=== PATIENT | male | born 1935 | race Caucasian/White ===

== ENCOUNTER 2018-08-25 07:30 | Inpatient (IN) | payer MEDICARE, OTHER ==
[2018-08-29] MEDS ORDERED: Sodium Chloride 0.9% 10 ML Syringe FLUSH PRN (00:01)
[2018-08-29] MEDS ORDERED: Lactated Ringers 1,000 ML IV SCH (00:01)
[2018-08-29] MEDS ORDERED: Lidocaine 1%/Sod Bicarbonate in NS 8.4% 1 ML Syringe IDERM PRN (00:01)
[2018-08-29] MEDS ORDERED: Ondansetron 4 MG/2 ML SDV IVPUSH PRN (06:27)
[2018-08-29] MEDS ORDERED: Bisacodyl 5 MG Tab PO PRN (06:27)
[2018-08-29] MEDS ORDERED: Sennosides 8.6 MG Tab PO PRN (06:27)
[2018-08-29] MEDS ORDERED: Naloxone 0.4 MG/ML SDV IVPUSH PRN (06:27)
[2018-08-29] MEDS ORDERED: Morphine 2 MG/ML Syringe IVPUSH PRN (06:27)
--- NOTE | 2018-08-29 06:35 | PCM.PREANE ---
Preanesthetic Assessment - Anesthesia/Transfusion/Family Hx Anesthesia History: Prior Anesthesia Without Reaction Family History of Anesthesia Reaction: No Transfusion History: Prior Transfusion Without Reaction - Review of Systems General: No Symptoms Pulmonary: No Symptoms Cardiovascular: Dyspnea on Exertion Gastrointestinal: No Symptoms Neurological: No Symptoms, Numbness (hands at times), Tingling (hands at times) Other: Reports: Diabetes (am blood suger 100), Thyroid Problems (hypothyroid), Sinus Problem (congestion) - Physical Assessment NPO Status Date: 08/28/18 NPO Status Time: 00:00 Pulse: 79 O2 Sat by Pulse Oximetry: 90 Respiratory Rate: 16 Blood Pressure: 112/68 Temperature: 36.1 C Height: 1.78 m Weight: 106 kg ASA Class: 3 Mental Status: Alert & Oriented x3 Airway Class: Mallampati = 2 Dentition: Reports: Dentures Thyro-Mental Finger Breadths: 3 Mouth Opening Finger Breadths: 2 ROM/Head Extension: Limited/Partial Lungs: Clear to Auscultation, Normal Respiratory Effort Cardiovascular: Regular Rate, Regular Rhythm - Imaging/EKG Impressions: ON chart - Allergies Allergies/Adverse Reactions: Allergies Allergy/AdvReac Type Severity Reaction Status Date / Time TREY Inhibitors Allergy Cough Verified 08/26/18 14:25 - Anesthesia Plan Pre-Op Medication Ordered: Beta [place] Beta [place]: Metoprolol Med Last Dose Date: 08/29/18 Med Last Dose Time: 04:30 - Acknowledgements Anesthesia Type Planned: Spinal, Regional Block (femoral block at adductor canal for post-op pain control) Pt an Appropriate Candidate for the Planned Anesthesia: Yes Alternatives and Risks of Anesthesia Discussed w Pt/Guardian: Yes Pt/Guardian Understands and Agrees with Anesthesia Plan: Yes PreAnesthesia Questionnaire HEENT History: Reports: Impaired Vision, Other (See Below) Other HEENT History: wears glasses, has hearing aids, has dentures Cardiovascular History: Reports: Afib, CAD, Heart Failure, High Cholesterol, Stents Respiratory History: Reports: COPD Gastrointestinal History: Reports: Cholelithiasis, Chronic Constipation Genitourinary History: Reports: Other (See Below) Other Genitourinary History: hematuria, left hydronephrosis, CKDIII WEB FEEDER History: Reports: None Musculoskeletal History: Reports: Other (See Below) Other Musculoskeletal History: right hip bursitis, mallet finger, low back pain , degenerative arthritis Neurological History: Reports: Other (See Below) Other Neuro History: spinal claudication Psychiatric History: Reports: Other (See Below) Other Psychiatric History: insomnia Endocrine/Metabolic History: Reports: Diabetes, Type II, Hypoparathyroidism Hematologic History: Reports: None Immunologic History: Reports: None Oncologic (Cancer) History: Reports: None Dermatologic History: Reports: Other (See Below) Other Dermatologic History: external nasal lesion - Past Surgical History Head Surgeries/Procedures: Reports: None Cardiovascular Surgical History: Reports: AAA Repair, Coronary Artery Bypass Respiratory Surgical History: Reports: None GI Surgical History: Reports: None Female Surgical History: Reports: None Male Surgical History: Reports: None Endocrine Surgical History: Reports: None Neurological Surgical History: Reports: None Musculoskeletal Surgical History: Reports: None Oncologic Surgical History: Reports: None - SUBSTANCE USE Smoking Status *Q: Former Smoker Tobacco Use Within Last Twelve Months: No Second Hand Smoke Exposure: No Days Per Week of Alcohol Use: 0 Number of Drinks Per Day: 0 Total Drinks Per Week: 0 Recreational Drug Use History: No - HOME MEDS Home Medications: Home Meds Aspirin [Halfprin] 81 mg PO DAILY 08/26/18 [History] Diltiazem HCl [Cardizem Cd] 240 mg PO DAILY 08/26/18 [History] Doxazosin [Cardura] 4 mg PO BEDTIME 08/26/18 [History] Furosemide 20 mg PO DAILY 08/26/18 [History] Insulin Glarg,Human.Rec.Analog [Lantus] 50 units SQ DAILY 08/26/18 [History] Levothyroxine [Synthroid] 50 mcg PO DAILY 08/26/18 [History] Losartan/Hydrochlorothiazide [Losartan-HCTZ 50-12.5 MG] 1 tab PO DAILY 08/26/18 [History] Metoprolol Succinate [Toprol Xl] 100 mg PO DAILY 08/26/18 [History] Polyethylene Glycol 3350 [MiraLAX] 17 g PO DAILY 08/26/18 [History] Tiotropium Br/Olodaterol HCl [Stiolto Respimat Inhal [place]] 1 puff INH DAILY 02/06 [History] Tiotropium [Spiriva HandiHaler] 1 puff INH DAILY 08/26/18 [History] Triamcinolone Acetonide [Triamcinolone Acetonide 0.1% Crm] 1 dose TOP BID PRN [History] Warfarin Sodium 2.5 mg PO MOWEFR 08/26/18 [History] Warfarin Sodium 5 mg PO SUTUTHSA 08/26/18 [History] glipiZIDE [Glipizide ER] 10 mg PO BID 08/26/18 [History] - CURRENT (IN HOUSE) MEDS Current Meds: Current Medications Lactated Ringer's (Ringers, Lactated) 1,000 mls @ 125 mls/hr IV ASDIRECTED LUCILA Lidocaine/Sodium Bicarbonate (Buffered Lidocaine 1% In Ns 8.4%) 0.25 ml IDERM ONETIME PRN PRN Reason: Prior to IV Start Sodium Chloride (Saline Flush) 10 ml FLUSH ASDIRECTED PRN PRN Reason: Keep Vein Open
[2018-08-29] MEDS ORDERED: ceFAZolin 1 GM Vial ONE ×2 (06:42→06:49)
[2018-08-29] MEDS ORDERED: Famotidine 20 MG/2 ML SDV IVPUSH ONE (06:45)
[2018-08-29] MEDS ORDERED: Ondansetron 4 MG/2 ML SDV ONE (06:48)
[2018-08-29] MEDS ORDERED: Propofol 200 MG/20 ML SDV ONE (06:48)
[2018-08-29] MEDS ORDERED: fentaNYL 100 MCG/2 ML SDV ONE (06:49)
[2018-08-29] MEDS ORDERED: Bupivacaine 0.75% 30 ML SDV ONE (07:28)
--- NOTE | 2018-08-29 07:48 | PCM.CONS ---
H&P History of Present Illness - General Date of Service: 08/29/18 Admit Problem/Dx: Admission Diagnosis/Problem Admission Diagnosis/Problem Osteoarthritis of knee Source of Information: Patient, Old Records, Provider, RN, RN Notes Reviewed History Limitations: Reports: No Limitations - History of Present Illness Initial Comments - Free Text/Narative: Jon Roberson is a 83 yo male patient of Dr. Eldridge who is post-operative day 0 of right TKA and left knee steroid injection. Hospital medicine was consulted for post-operative medical care. At this time he is resting comfortably in bed. Pain is controlled. He denies any chest pain, shortness of breath, palpitations , nausea, or vomiting. He carries a history of: Hard of hearing, hematuria, CHF , hydronephrosis, HLD, claudication, lower back pain, COPD, OA, AAA with repair in 2005, hypothyroidism, type II DM, A. fib, atrial flutter, CAD stage III, CAD , CABG 4 in 2005, stent placement in 2014. He is a former smoker. He is a full code. His primary care provider is Dr. Gallagher. - Related Data Allergies/Adverse Reactions: Allergies Allergy/AdvReac Type Severity Reaction Status Date / Time TREY Inhibitors Allergy Cough Verified 08/29/18 10:07 Home Medications: Home Meds Aspirin [Halfprin] 81 mg PO DAILY 08/26/18 [History] Diltiazem HCl [Cardizem Cd] 240 mg PO DAILY 08/26/18 [History] Doxazosin [Cardura] 4 mg PO BEDTIME 08/26/18 [History] Furosemide 20 mg PO DAILY 08/26/18 [History] Insulin Glarg,Human.Rec.Analog [Lantus] 50 units SQ DAILY 08/26/18 [History] Levothyroxine [Synthroid] 50 mcg PO DAILY 08/26/18 [History] Losartan/Hydrochlorothiazide [Losartan-HCTZ 50-12.5 MG] 1 tab PO DAILY 08/26/18 [History] Metoprolol Succinate [Toprol Xl] 100 mg PO DAILY 08/26/18 [History] Polyethylene Glycol 3350 [MiraLAX] 17 g PO DAILY PRN 08/26/18 [History] Tiotropium [Spiriva HandiHaler] 1 puff INH DAILY 08/26/18 [History] Triamcinolone Acetonide [Triamcinolone Acetonide 0.1% Crm] 1 dose TOP BID PRN [History] Warfarin Sodium 2.5 mg PO MOWEFR 08/26/18 [History] Warfarin Sodium 5 mg PO SUTUTHSA 08/26/18 [History] glipiZIDE [Glipizide ER] 10 mg PO BID 08/26/18 [History] Acetaminophen/HYDROcodone [[place] 325-5 MG] 1 - 2 tab PO Q6H PRN #60 tablet 08/29 [Rx] Bisacodyl [Dulcolax] 5 mg PO DAILY PRN tablet 08/29/18 [Rx] Cholecalciferol (Vitamin D3) [Vitamin D3] 1 tab PO DAILY 08/29/18 [History] Docusate Sodium [Colace] 100 mg PO BID cap 08/29/18 [Rx] Famotidine [Pepcid] 20 mg PO Q12H tablet 08/29/18 [Rx] Pharmacy to Dose - Warfarin 1 dose .XX ASDIRECTED each 08/29/18 [Rx] Sennosides [Senna] 8.6 mg PO BID PRN tablet 08/29/18 [Rx] Past Medical History HEENT History: Reports: Impaired Vision, Other (See Below) Other HEENT History: wears glasses, has hearing aids, has dentures Cardiovascular History: Reports: Afib, CAD, Heart Failure, High Cholesterol, Stents Respiratory History: Reports: COPD Gastrointestinal History: Reports: Cholelithiasis, Chronic Constipation Genitourinary History: Reports: Other (See Below) Other Genitourinary History: hematuria, left hydronephrosis, CKDIII MANAGER TALENT History: Reports: None Musculoskeletal History: Reports: Other (See Below) Other Musculoskeletal History: right hip bursitis, mallet finger, low back pain , degenerative arthritis Neurological History: Reports: Other (See Below) Other Neuro History: spinal claudication Psychiatric History: Reports: Other (See Below) Other Psychiatric History: insomnia Endocrine/Metabolic History: Reports: Diabetes, Type II, Hypoparathyroidism Hematologic History: Reports: None Immunologic History: Reports: None Oncologic (Cancer) History: Reports: None Dermatologic History: Reports: Other (See Below) Other Dermatologic History: external nasal lesion - Past Surgical History Head Surgeries/Procedures: Reports: None Cardiovascular Surgical History: Reports: AAA Repair, Coronary Artery Bypass Respiratory Surgical History: Reports: None GI Surgical History: Reports: None Female Surgical History: Reports: None Male Surgical History: Reports: None Endocrine Surgical History: Reports: None Neurological Surgical History: Reports: None Musculoskeletal Surgical History: Reports: None Oncologic Surgical History: Reports: None Social & Family History - Tobacco Use Smoking Status *Q: Former Smoker Second Hand Smoke Exposure: No - Caffeine Use Caffeine Use: Reports: Coffee - Alcohol Use Days Per Week of Alcohol Use: 0 Number of Drinks Per Day: 0 Total Drinks Per Week: 0 - Recreational Drug Use Recreational Drug Use: No Drug Use in Last 12 Months: No H&P Review of Systems - Review of Systems: Review Of Systems: See Below General: Reports: No Symptoms. Denies: Fever, Fatigue HEENT: Reports: No Symptoms. Denies: Headaches, Sore Throat Pulmonary: Reports: No Symptoms. Denies: Shortness of Breath, Wheezing, Pleuritic Chest Pain, Cough, Sputum, Hemoptysis Cardiovascular: Reports: No Symptoms. Denies: Chest Pain, Palpitations, Dyspnea on Exertion, Edema, Lightheadedness Gastrointestinal: Reports: No Symptoms. Denies: Abdominal Pain, Constipation, Diarrhea, Nausea, Vomiting Genitourinary: Reports: No Symptoms. Denies: Pain Musculoskeletal: Reports: Leg Pain Skin: Reports: No Symptoms. Denies: Cyanosis Psychiatric: Reports: No Symptoms. Denies: Confusion Neurological: Reports: No Symptoms Hematologic/Lymphatic: Reports: No Symptoms Immunologic: Reports: No Symptoms Exam - Exam Exam: See Below - Vital Signs Vital Signs: Last Vital Signs Temp 97.0 F 08/29/18 06:41 Pulse 79 08/29/18 06:41 Resp 16 08/29/18 06:41 BP 112/68 08/29/18 06:41 Pulse Ox 90 L 08/29/18 06:41 Weight: 233 lb 11.04 oz - Exam Quality Assessment: DVT Prophylaxis General: Alert, Oriented, Cooperative. No: Mild Distress HEENT: Conjunctiva Clear, EACs Clear, EOMI, Hearing Intact, Mucosa Moist & [place] , Nares Patent, Normal Nasal Septum, Posterior Pharynx Clear, PERRLA Neck: Supple, Trachea Midline Lungs: Clear to Auscultation, Normal Respiratory Effort Cardiovascular: Regular Rate, Regular Rhythm GI/Abdominal Exam: Normal Bowel Sounds, Soft, Non-Tender, No Distention, No Abnormal Bruit (Male) Exam: Deferred Rectal (Males) Exam: Deferred Back Exam: Normal Inspection, Full Range of Motion Extremities: No Pedal Edema, Normal Capillary Refill, Leg Pain, Limited Range of Motion, Other (Bandage in place on right leg. Cooling pack in place. ) Peripheral Pulses: 2+: Radial (L), Radial (R), Dorsalis Pedis (L), Dorsalis Pedis (R) Skin: Warm, Dry, Intact Neurological: Cranial Nerves Intact (grossly ) Neuro Extensive - Mental Status: Alert, Oriented x3, Normal Mood/Affect, Normal Cognition - Patient Data Lab Results Last 24 hrs: Laboratory Results - last 24 hr 08/29/18 08/29/18 Range/Units 06:33 06:34 PT 13.0 H (9.5-12.1) SECONDS INR 1.20 POC Glucose 100 (83-110) mg/dL Consult PN Assessment/Plan POD#: 0 (1) S/P total knee arthroplasty SNOMED Code(s): 7735948835399, 208930950, 2165718786115 Code(s): Z96.659 - PRESENCE OF UNSPECIFIED ARTIFICIAL KNEE JOINT Priority: High Current Visit: Yes Qualifiers: Laterality: right Qualified Code(s): Z96.651 - Presence of right artificial knee joint (2) Osteoarthritis SNOMED Code(s): 419342723 Code(s): M19.90 - UNSPECIFIED OSTEOARTHRITIS, UNSPECIFIED SITE Priority: High Current Visit: Yes Qualifiers: Osteoarthritis location: knee Osteoarthritis type: primary Laterality: bilateral Qualified Code(s): M17.0 - Bilateral primary osteoarthritis of knee (3) CHF (congestive heart failure) SNOMED Code(s): 86560986 Code(s): I50.9 - HEART FAILURE, UNSPECIFIED Priority: Medium Current Visit: No Qualifiers: Heart failure type: unspecified Heart failure chronicity: unspecified Qualified Code(s): I50.9 - Heart failure, unspecified (4) HLD (hyperlipidemia) SNOMED Code(s): 31784911 Code(s): E78.5 - HYPERLIPIDEMIA, UNSPECIFIED Priority: Low Current Visit : No Qualifiers: Hyperlipidemia type: unspecified Qualified Code(s): E78.5 - Hyperlipidemia , unspecified (5) Chronic lower back pain SNOMED Code(s): 971733253 Code(s): M54.5 - LOW BACK PAIN; G89.29 - OTHER CHRONIC PAIN Priority: Low Current Visit: No Qualifiers: Back pain laterality: unspecified Sciatica presence: unspecified whether sciatica present Qualified Code(s): M54.5 - Low back pain; G89.29 - Other chronic pain (6) COPD (chronic obstructive pulmonary disease) SNOMED Code(s): 65341659 Code(s): J44.9 - CHRONIC OBSTRUCTIVE PULMONARY DISEASE, UNSPECIFIED Priority: Medium Current Visit: No Qualifiers: COPD type: unspecified COPD Qualified Code(s): J44.9 - Chronic obstructive pulmonary disease, unspecified (7) History of AAA (abdominal aortic aneurysm) repair SNOMED Code(s): 991186710 Code(s): Z98.890 - OTHER SPECIFIED POSTPROCEDURAL STATES Priority: Medium Current Visit: No (8) Hypothyroidism SNOMED Code(s): 86651082 Code(s): E03.9 - HYPOTHYROIDISM, UNSPECIFIED Priority: Medium Current Visit: No Qualifiers: Hypothyroidism type: unspecified Qualified Code(s): E03.9 - Hypothyroidism , unspecified (9) Type II diabetes mellitus SNOMED Code(s): 80255243 Code(s): E11.9 - TYPE 2 DIABETES MELLITUS WITHOUT COMPLICATIONS Priority: Medium Current Visit: No Qualifiers: Diabetes mellitus assisted insulin use: unspecified assisted insulin use status Diabetes mellitus complication status: with unspecified complications Qualified Code(s): E11.8 - Type 2 diabetes mellitus with unspecified complications (10) A-fib SNOMED Code(s): 15108876 Code(s): I48.91 - UNSPECIFIED ATRIAL FIBRILLATION Priority: Medium Current Visit: No Qualifiers: Atrial fibrillation type: unspecified Qualified Code(s): I48.91 - Unspecified atrial fibrillation (11) CKD (chronic kidney disease) SNOMED Code(s): 945943274 Code(s): N18.9 - CHRONIC KIDNEY DISEASE, UNSPECIFIED Priority: Medium Current Visit: No Qualifiers: Chronic kidney disease stage: stage 3 (moderate) Qualified Code(s): N18.3 - Chronic kidney disease, stage 3 (moderate) (12) CAD (coronary artery disease) SNOMED Code(s): 70341722 Code(s): I25.10 - ATHSCL HEART DISEASE OF [place] CORONARY ARTERY W/O ANG PCTRS Priority: Medium Current Visit: No Qualifiers: Coronary Disease-Associated Artery/Lesion type: unspecified vessel or lesion type [place] vs. transplanted heart: [place] heart Associated angina: angina presence unspecified Qualified Code(s): I25.10 - Atherosclerotic heart disease of [place] coronary artery without angina pectoris (13) History of four vessel coronary artery bypass graft SNOMED Code(s): 824218395, 007360187 Code(s): Z95.1 - PRESENCE OF AORTOCORONARY BYPASS GRAFT Priority: Medium Current Visit: No Problem List Initiated/Reviewed/Updated: Yes Plan: I/P: Acute: S/P right total knee arthroplasty - post-operative day 0 -DVT prophylaxis and pain management per primary care team -PT/OT -IS/RT -Monitor oxygen saturation -Titrate oxygen as needed -Vital signs stable -Monitor labs -Pre-operative Hgb was 16.6 -Pre-operative GFR was 34 -Pre-operative creatinine was 1.9 -Pre-operative BUN was 42 -Preoperative A1C was 7.1% -Echo on 05/05/19 showed EF of 59%, A-flutter at 61 BPM Osteoarthritis of bilateral knee -Pain management per primary care team S/P left knee steroid injection -Management per primary team Chronic: Hard of hearing hematuria CHF hydronephrosis HLD claudication lower back pain COPD AAA with repair in 2005 hypothyroidism type II DM A. fib atrial flutter CAD stage III CAD CABG 4 in 2005 stent placement in 2014 Plan: CM for discharge planning - Plan to discharge to [facility] GI prophylaxis Home medications as indicated Other orders as listed above Routine AM labs He is a full code. His PCP is Dr. Gallagher Thank you for allowing us to participate in the care of this patient!! Requesting Provider: Dr. Eldridge Date Consult Requested: 08/29/18 Reason for Consult: Post-operative medical care Patient History Reviewed: Yes Admission H&P Reviewed: Yes Time Spent (in minutes): 30
[2018-08-29] MEDS ORDERED: Phenylephrine/Normal Saline 100 MCG/ML 10 ML Syringe ONE (07:52)
[2018-08-29] MEDS: Iodine/Sodium Iodide 2% Tincture 30 ML Bottle ONE ×2 (08:03→08:07)
[2018-08-29] MEDS: ceFAZolin 1 GM Vial ONE ×2 (08:03→08:10)
[2018-08-29] MEDS: Morphine 8 MG, EPINEPHrine 0.3 MG, Cefuroxime 750 MG, Sodium Chloride 0.9% 28.9 ML ONE ×8 (08:04→08:15)
[2018-08-29] MEDS: Vancomycin 1 GM SDV ONE ×2 (08:05→08:20)
[2018-08-29] MEDS: Bupivacaine 0.25% 30 ML SDV ONE ×4 (08:05→08:41)
[2018-08-29] MEDS: Triamcinolone Acetonide 40 MG/ML 1 ML MDV ONE ×2 (08:06→08:41)
--- NOTE | 2018-08-29 08:55 | PCM.POSTAN ---
POST ANESTHESIA ASSESSMENT - MENTAL STATUS Mental Status: Alert, Oriented - VITAL SIGNS Pulse Rate: 58 SaO2: 93 Resp Rate: 10 Blood Pressure: 85/54 Temperature: 36.6 C - RESPIRATORY Respiratory Status: Respiratory Rate WNL, Airway Patent, O2 Saturation Stable, Supplemental Oxygen - CARDIOVASCULAR CV Status: Pulse Rate WNL, Blood Pressure Stable - GASTROINTESTINAL GI Status: No Symptoms - PAIN Pain Score: 0 - POST OP HYDRATION Hydration Status: Adequate & Stable - OBSERVATIONS Free Text/Narrative:: no anesthesia complications noted
[2018-08-29] MEDS ORDERED: EPINEPHrine 1 MG/ML SDV ONE (09:06)
[2018-08-29] MEDS ORDERED: Ropivacaine 0.5% 5 MG/ML 30 ML SDV ONE (09:06)
--- NOTE | 2018-08-29 09:32 | PCM.SN ---
- Free Text/Narrative Note: Right selective femoral nerve block at the adductor canal for post-procedure pain control under US guidance requested by Dr. Eldridge. Time Out: 908 Start: 908 End: 921 Chart reviewed. Consent signed. Questions answered. Appropriate monitors applied. Time out performed. Right mid-shaft femur identified with ultrasound, scanning medially of femur, the femoral artery in the adductor canal visualized , and the femoral nerve located laterally to the artery. The skin was prepped lateral to the ultrasound probe with chlorahexadine times two. The 21ga 4 insulated block needle was inserted under direct ultrasound guidance into the adductor canal. 20 mL of 0.5% ropivacaine with 1:200,000 epinephrine was injected circumferentially around the nerve with intermittent negative aspiration noted. Patient tolerated the procedure well. Sterile technique noted along with sterile gloves, mask, and sterile probe cover. See picture on progress note and vital signs on nurses notes. Block completed in PACU. Lefty Dunn CRNA
--- NOTE | 2018-08-29 09:59 | CR ---
Right knee: Portable AP and lateral views of the right knee were obtained. Comparison: No previous exam. Knee prosthesis is seen. Components are aligned. Underlying bony structures are intact. Vascular calcification is seen. Soft tissue air is noted from the surgical procedure. Impression: 1. Satisfactory postoperative radiographic appearance of recently placed right knee prosthesis. Diagnostic code #2
[2018-08-29] MEDS: Insulin Lispro 100 Units/ML 3 ML Vial SUBCUT SCH ×3 (13:30→21:38)
[2018-08-29] MEDS ORDERED: Polyethylene Glycol 3350 Powder 17 GM Packet PO PRN (13:39)
[2018-08-29] MEDS ORDERED: Triamcinolone Acetonide 0.1% Crm 15 GM Tube TOP PRN (13:39)
[2018-08-29] MEDS: Acetaminophen/HYDROcodone 325-5 MG Tab PO PRN (15:25)
[2018-08-29] MEDS: ceFAZolin 2 GM in Premix Bag 1 BAG IV SCH ×2 (15:27→23:51)
[2018-08-29] MEDS ORDERED: Warfarin 2.5 MG Tab PO SCH (18:00)
[2018-08-29] MEDS ORDERED: Famotidine 20 MG Tab PO SCH (21:00)
[2018-08-29] MEDS: glipiZIDE 5 MG Tab.ER PO SCH (21:36)
[2018-08-29] MEDS: Docusate Sodium 100 MG Cap PO SCH (21:36)
[2018-08-29] MEDS: Doxazosin 4 MG Tab PO SCH (21:38)
[2018-08-30] MEDS: Acetaminophen/HYDROcodone 325-5 MG Tab PO PRN ×4 (03:10→21:10)
--- NOTE | 2018-08-30 06:33 | PCM.CONSN ---
- General Info Date of Service: 08/30/18 Admission Dx/Problem (Free Text): Admission Diagnosis/Problem Admission Diagnosis/Problem Osteoarthritis of knee Subjective Update: In to see Jon. He is sitting in bed. He has no complaints. Nursing notified us today that Alma Delia HR was A-flutter in 110's to 120's sustained. 5MG IVP metoprolol given with little to no response. Advised to optimize pain control as patient has not had much for pain medications. HR responded to pain medications. No other concerns. Labs and vital signs otherwise remain stable. Patient has been working with PT/OT. Likely discharge 09/01/18 to [facility]. Functional Status: Reports: Pain Controlled, Tolerating Diet, Ambulating, Urinating, Incentive Spirometry. Denies: New Symptoms - Review of Systems General: Reports: No Symptoms. Denies: Fever, Malaise, Chills HEENT: Reports: No Symptoms. Denies: Headaches, Sore Throat Pulmonary: Reports: No Symptoms. Denies: Shortness of Breath, Pleuritic Chest Pain, Cough, Sputum, Wheezing Cardiovascular: Reports: No Symptoms. Denies: Chest Pain, Palpitations, Dyspnea on Exertion, Lightheadedness Gastrointestinal: Reports: No Symptoms. Denies: Abdominal Pain, Constipation, Diarrhea, Nausea, Vomiting Genitourinary: Reports: No Symptoms. Denies: Pain Musculoskeletal: Reports: Leg Pain Skin: Reports: No Symptoms Neurological: Reports: No Symptoms. Denies: Confusion Psychiatric: Reports: No Symptoms - Patient Data Vitals - Most Recent: Last Vital Signs Temp 98.1 F 08/30/18 04:54 Pulse 110 H 08/30/18 03:14 Resp 24 H 08/30/18 03:14 BP 117/67 08/30/18 03:14 Pulse Ox 92 L 08/30/18 03:14 Weight - Most Recent: 238 lb 12.8 oz I&O - Last 24 Hours: Intake & Output 08/29/18 08/29/18 08/30/18 14:59 22:59 06:59 Intake Total 245 1979 850 Balance 245 1979 850 Lab Results Last 24 Hours: Laboratory Results - last 24 hr 08/29/18 08/29/18 08/29/18 Range/Units 06:33 06:34 11:14 PT 13.0 H (9.5-12.1) SECONDS INR 1.20 POC Glucose 100 190 H (83-110) mg/dL 08/29/18 08/29/18 Range/Units 17:25 21:21 PT (9.5-12.1) SECONDS INR POC Glucose 246 H 221 H (83-110) mg/dL Med Orders - Current: Current Medications Hydrocodone Bitart/Acetaminophen ([place] 325-5 Mg) 1 - 2 tab PO Q4H PRN PRN Reason: Pain Last Admin: 08/30/18 03:10 Dose: 2 tab Aspirin (Halfprin) 81 mg PO DAILY [facility] Bisacodyl (Dulcolax) 5 mg PO DAILY PRN PRN Reason: Constipation Cholecalciferol (Vitamin D3) 1 unit PO DAILY [facility] Diltiazem HCl (Dilacor Xr) 240 mg PO DAILY [facility] Docusate Sodium (Colace) 100 mg PO BID [facility] Last Admin: 08/29/18 21:36 Dose: 100 mg Doxazosin Mesylate (Cardura) 4 mg PO BEDTIME [facility] Last Admin: 08/29/18 21:38 Dose: 4 mg Furosemide (Lasix) 20 mg PO DAILY [facility] Glipizide (Glucotrol Xl) 10 mg PO BID [facility] Last Admin: 08/29/18 21:36 Dose: 10 mg Hydrochlorothiazide (Hydrochlorothiazide) 12.5 mg PO DAILY [facility] Cefazolin Sodium/Dextrose 2 gm (/ Premix) 50 mls @ 100 mls/hr IV Q8H [facility] Stop: 08/30/18 07:29 Last Admin: 08/29/18 23:51 Dose: 100 mls/hr Insulin Glargine (Lantus) 50 unit SUBCUT DAILY [facility] Insulin Human Lispro (Humalog) 0 unit SUBCUT QIDACANDBED [facility]; Protocol Last Admin: 08/29/18 21:38 Dose: 2 units Levothyroxine Sodium (Synthroid) 50 mcg PO DAILY@0700 [facility] Losartan Potassium (Cozaar) 50 mg PO DAILY [facility] Metoprolol Succinate (Toprol Xl) 100 mg PO DAILY [facility] Morphine Sulfate (Morphine) 2 mg IVPUSH Q2H PRN PRN Reason: Breakthrough Pain Naloxone HCl (Narcan) 0.1 mg IVPUSH Q5M PRN PRN Reason: Oversedation Ondansetron HCl (Zofran) 4 mg IVPUSH Q6H PRN PRN Reason: Nausea/Vomiting Tiotropium Inhaler (18 Mcg Ptom) 0 each INH DAILY [facility] Polyethylene Glycol (Miralax) 17 gm PO DAILY PRN PRN Reason: constipation Senna (Senna) 8.6 mg PO BID PRN PRN Reason: Constipation Triamcinolone Acetonide (Triamcinolone Acetonide 0.1% Crm) 0 gm TOP BID PRN PRN Reason: SKIN COMPLICATIONS Warfarin Sodium (Coumadin) 2.5 mg PO MoWeFr@1800 [facility] Last Admin: 08/29/18 17:35 Dose: 2.5 mg Warfarin Sodium (Coumadin) 5 mg PO SuTuThSa@1800 [facility] Warfarin Sodium (Pharmacy To Dose - Warfarin) 0 dose .XX ASDIRECTED PRN PRN Reason: RX TO DOSE WARFARIN Discontinued Medications Bupivacaine HCl (Marcaine 0.25%) Confirm Administered Dose 30 ml .ROUTE .STK- MED ONE Stop: 08/29/18 06:32 Last Admin: 08/29/18 08:41 Dose: 4 ml Bupivacaine HCl (Sensorcaine-Mpf 0.75%) Confirm Administered Dose 30 ml .ROUTE .STK-MED ONE Stop: 08/29/18 07:29 Cefazolin Sodium (Ancef) Confirm Administered Dose 2 gm .ROUTE .STK-MED ONE Stop: 08/29/18 06:32 Last Admin: 08/29/18 08:10 Dose: 2 gm Cefazolin Sodium (Ancef) Confirm Administered Dose 1 gm .ROUTE .STK-MED ONE Stop: 08/29/18 06:43 Cefazolin Sodium (Ancef) Confirm Administered Dose 2 gm .ROUTE .STK-MED ONE Stop: 08/29/18 06:50 Morphine Sulfate 8 mg/Epinephrine HCl 0.3 mg/Cefuroxime Sodium 750 mg/Sodium Chloride 28.9 ml 0 mg .XX ONETIME ONE Stop: 08/29/18 07:41 Last Admin: 08/29/18 08:15 Dose: 758.3 mg Epinephrine HCl (Adrenalin) Confirm Administered Dose 1 mg .ROUTE .STK-MED ONE Stop: 08/29/18 09:07 Famotidine (Pepcid) 20 mg PO Q12H [facility] Famotidine (Pepcid) 20 mg IVPUSH ONETIME ONE Stop: 08/29/18 06:46 Last Admin: 08/29/18 13:32 Dose: Not Given Fentanyl (Sublimaze) Confirm Administered Dose 100 mcg .ROUTE .STK-MED ONE Stop: 08/29/18 06:50 Lactated Ringer's (Ringers, Lactated) 1,000 mls @ 125 mls/hr IV ASDIRECTED LUCILA Stop: 08/29/18 23:00 Last Admin: 08/29/18 06:20 Dose: 125 mls/hr Lidocaine HCl (Xylocaine-Mpf 1%) Confirm Administered Dose 5 mls @ as directed .ROUTE .STK-MED ONE Stop: 08/29/18 07:29 Iodine (Iodine 2% Mild Tincture) Confirm Administered Dose 30 ml .ROUTE .STK- MED ONE Stop: 08/29/18 06:32 Last Admin: 08/29/18 08:07 Dose: 18 ml Lidocaine/Sodium Bicarbonate (Buffered Lidocaine 1% In Ns 8.4%) 0.25 ml IDERM ONETIME PRN PRN Reason: Prior to IV Start Stop: 08/29/18 23:00 Last Admin: 08/29/18 06:20 Dose: 0.25 ml Ondansetron HCl (Zofran) Confirm Administered Dose 4 mg .ROUTE .STK-MED ONE Stop: 08/29/18 06:49 Phenylephrine HCl (Phenylephrine In Ns 100 Mcg/Ml) Confirm Administered Dose 1 mg .ROUTE .STK-MED ONE Stop: 08/29/18 07:53 Propofol (Diprivan 20 Ml) Confirm Administered Dose 200 mg .ROUTE .STK-MED ONE Stop: 08/29/18 06:49 Ropivacaine (Naropin 0.5%) Confirm Administered Dose 30 ml .ROUTE .STK-MED ONE Stop: 08/29/18 09:07 Sodium Chloride (Saline Flush) 10 ml FLUSH ASDIRECTED PRN PRN Reason: Keep Vein Open Stop: 08/29/18 23:00 Tranexamic Acid (Cyklokapron) Confirm Administered Dose 1,000 mg .ROUTE .STK- MED ONE Stop: 08/29/18 06:32 Last Admin: 08/29/18 08:22 Dose: 1,000 mg Triamcinolone Acetonide (Kenalog-40) Confirm Administered Dose 80 mg .ROUTE .STK -MED ONE Stop: 08/29/18 06:32 Last Admin: 08/29/18 08:41 Dose: 80 mg Vancomycin HCl (Vancomycin) Confirm Administered Dose 1 gm .ROUTE .[facility]-MED ONE Stop: 08/29/18 06:32 Last Admin: 08/29/18 08:20 Dose: 1 gm - Exam Quality Assessment: Supplemental Oxygen, DVT Prophylaxis. No: Urine Catheter General: Alert, Oriented, Cooperative, No Acute Distress HEENT: Pupils Equal, Pupils Reactive, EOMI, Mucous Membr. Moist/[place] Neck: Supple, Trachea Midline Lungs: Clear to Auscultation, Normal Respiratory Effort Cardiovascular: Regular Rate, Irregular Rhythm GI/Abdominal Exam: Normal Bowel Sounds, Soft, Non-Tender, No Distention, No Abnormal Bruit (Male) Exam: Deferred Back Exam: Normal Inspection, Full Range of Motion Extremities: No Pedal Edema, Normal Capillary Refill, Leg Pain, Limited Range of Motion, Other (Bandage on right leg. Cooling pack in place ) Peripheral Pulses: 2+: Radial (L), Radial (R), Dorsalis Pedis (L), Dorsalis Pedis (R) Skin: Warm, Dry, Intact Wound/Incisions: Dressing Dry and Intact, No Drainage Neurological: No New Focal Deficit Psy/Mental Status: Alert, Normal Affect, Normal Mood Consult PN Assessment/Plan POD#: 1 (1) S/P total knee arthroplasty SNOMED Code(s): 0399686534925, 200767101, 1978931964904 Code(s): Z96.659 - PRESENCE OF UNSPECIFIED ARTIFICIAL KNEE JOINT Priority: High Current Visit: Yes Qualifiers: Laterality: right Qualified Code(s): Z96.651 - Presence of right artificial knee joint (2) Osteoarthritis SNOMED Code(s): 113968526 Code(s): M19.90 - UNSPECIFIED OSTEOARTHRITIS, UNSPECIFIED SITE Priority: High Current Visit: Yes Qualifiers: Osteoarthritis location: knee Osteoarthritis type: primary Laterality: bilateral Qualified Code(s): M17.0 - Bilateral primary osteoarthritis of knee (3) CHF (congestive heart failure) SNOMED Code(s): 01314860 Code(s): I50.9 - HEART FAILURE, UNSPECIFIED Priority: Medium Current Visit: No Qualifiers: Heart failure type: unspecified Heart failure chronicity: unspecified Qualified Code(s): I50.9 - Heart failure, unspecified (4) HLD (hyperlipidemia) SNOMED Code(s): 78799991 Code(s): E78.5 - HYPERLIPIDEMIA, UNSPECIFIED Priority: Low Current Visit : No Qualifiers: Hyperlipidemia type: unspecified Qualified Code(s): E78.5 - Hyperlipidemia , unspecified (5) Chronic lower back pain SNOMED Code(s): 529832558 Code(s): M54.5 - LOW BACK PAIN; G89.29 - OTHER CHRONIC PAIN Priority: Low Current Visit: No Qualifiers: Back pain laterality: unspecified Sciatica presence: unspecified whether sciatica present Qualified Code(s): M54.5 - Low back pain; G89.29 - Other chronic pain (6) COPD (chronic obstructive pulmonary disease) SNOMED Code(s): 63576479 Code(s): J44.9 - CHRONIC OBSTRUCTIVE PULMONARY DISEASE, UNSPECIFIED Priority: Medium Current Visit: No Qualifiers: COPD type: unspecified COPD Qualified Code(s): J44.9 - Chronic obstructive pulmonary disease, unspecified (7) History of AAA (abdominal aortic aneurysm) repair SNOMED Code(s): 429332514 Code(s): Z98.890 - OTHER SPECIFIED POSTPROCEDURAL STATES Priority: Medium Current Visit: No (8) Hypothyroidism SNOMED Code(s): 36002671 Code(s): E03.9 - HYPOTHYROIDISM, UNSPECIFIED Priority: Medium Current Visit: No Qualifiers: Hypothyroidism type: unspecified Qualified Code(s): E03.9 - Hypothyroidism , unspecified (9) Type II diabetes mellitus SNOMED Code(s): 73219578 Code(s): E11.9 - TYPE 2 DIABETES MELLITUS WITHOUT COMPLICATIONS Priority: Medium Current Visit: No Qualifiers: Diabetes mellitus longterm insulin use: unspecified longterm insulin use status Diabetes mellitus complication status: with unspecified complications Qualified Code(s): E11.8 - Type 2 diabetes mellitus with unspecified complications (10) A-fib SNOMED Code(s): 45329850 Code(s): I48.91 - UNSPECIFIED ATRIAL FIBRILLATION Priority: Medium Current Visit: No Qualifiers: Atrial fibrillation type: unspecified Qualified Code(s): I48.91 - Unspecified atrial fibrillation (11) CKD (chronic kidney disease) SNOMED Code(s): 427721466 Code(s): N18.9 - CHRONIC KIDNEY DISEASE, UNSPECIFIED Priority: Medium Current Visit: No Qualifiers: Chronic kidney disease stage: stage 3 (moderate) Qualified Code(s): N18.3 - Chronic kidney disease, stage 3 (moderate) (12) CAD (coronary artery disease) SNOMED Code(s): 33911503 Code(s): I25.10 - ATHSCL HEART DISEASE OF [place] CORONARY ARTERY W/O ANG PCTRS Priority: Medium Current Visit: No Qualifiers: Coronary Disease-Associated Artery/Lesion type: unspecified vessel or lesion type [place] vs. transplanted heart: [place] heart Associated angina: angina presence unspecified Qualified Code(s): I25.10 - Atherosclerotic heart disease of [place] coronary artery without angina pectoris (13) History of four vessel coronary artery bypass graft SNOMED Code(s): 346375621, 025200536 Code(s): Z95.1 - PRESENCE OF AORTOCORONARY BYPASS GRAFT Priority: Medium Current Visit: No Problem List Initiated/Reviewed/Updated: Yes My Orders Last 24 Hours: My Active Orders 08/29/18 11:37 Blood Glucose Check, Bedside [RC] QIDACANDBED 08/29/18 12:00 Insulin Lispro [HumaLOG] See Protocol SUBCUT QIDACANDBED Plan: I/P: Acute: S/P right total knee arthroplasty - post-operative day 1 -DVT prophylaxis and pain management per primary care team -PT/OT -IS/RT -Monitor oxygen saturation -Titrate oxygen as needed -Vital signs stable -Monitor labs -Pre-operative Hgb was 16.6; Now 15.8 -Pre-operative GFR was 34; Now 32 -Pre-operative Creatinine was 1.9, Now 2.0 -Pre-operative BUN was 42; Now 44 -Preoperative A1C was 7.1% -Echo on 05/05/19 showed EF of 59%, A-flutter at 61 BPM Osteoarthritis of bilateral knee -Pain management per primary care team S/P left knee steroid injection -Management per primary team Resolved: S/P Tachycardia (resolved with pain medications) -Sustained A-Flutter in 110's to 120's -Metoprolol given with little effect -Optimize pain control -10mg cardizem IVP Q6Hr PRN -IV fluids started -At baseline respiratory status Chronic: Hard of hearing hematuria CHF hydronephrosis HLD claudication lower back pain COPD AAA with repair in 2005 hypothyroidism type II DM A. fib atrial flutter CAD stage III CAD CABG 4 in 2005 stent placement in 2014 Plan: CM for discharge planning - Plan to discharge to [facility] GI prophylaxis Home medications as indicated Other orders as listed above Routine AM labs He is a full code. His PCP is Dr. Gallagher Thank you for allowing us to participate in the care of this patient!!
[2018-08-30] MEDS: ceFAZolin 2 GM in Premix Bag 1 BAG IV SCH (06:50)
[2018-08-30] MEDS: Levothyroxine 50 MCG Tab PO SCH (06:50)
--- NOTE | 2018-08-30 08:00 | PCM.SURGPN ---
- General Info Date of Service: 08/30/18 POD#: 1 Functional Status: Reports: Pain Controlled, Tolerating Diet, Ambulating, Urinating, Incentive Spirometry, Other (The pt states his pain is well controlled.) - Patient Data Vitals - Most Recent: Last Vital Signs Temp 98.1 F 08/30/18 04:54 Pulse 110 H 08/30/18 03:14 Resp 24 H 08/30/18 03:14 BP 117/67 08/30/18 03:14 Pulse Ox 92 L 08/30/18 03:14 Weight - Most Recent: 238 lb 12.8 oz I&O - Last 24 Hours: Intake & Output 08/29/18 08/30/18 08/30/18 22:59 06:59 14:59 Intake Total 1979 850 Balance 1979 Lab Results Last 24 Hrs: Laboratory Results - last 24 hr 08/29/18 08/29/18 08/29/18 Range/Units 11:14 17:25 21:21 WBC (4.23-9.07) K/mm3 RBC (4.63-6.08) M/mm3 Hgb (13.7-17.5) gm/L Hct (40.1-51.0) % MCV (79.0-92.2) fl MCH (25.7-32.2) pg MCHC (32.2-35.5) g/dl RDW Std Deviation (35.1-43.9) fL Plt Count (163-337) K/mm3 MPV (9.4-12.3) fl PT (9.5-12.1) SECONDS INR Sodium (136-145) mEq/L Potassium (3.5-5.1) mEq/L Chloride (98-107) mEq/L Carbon Dioxide (21-32) mEq/L Anion Gap (5-15) BUN (7-18) mg/dL Creatinine (0.7-1.3) mg/dL Est Cr Clr Drug Dosing mL/min Estimated GFR (MDRD) (>60) mL/min BUN/Creatinine Ratio (14-18) Glucose (83-115) mg/dL POC Glucose 190 H 246 H 221 H (83-110) mg/dL Calcium (8.5-10.1) mg/dL Total Bilirubin (0.2-1.0) mg/dL AST (15-37) U/L ALT (16-63) U/L Alkaline Phosphatase (46-116) U/L Total Protein (6.4-8.2) g/dl Albumin (3.4-5.0) g/dl Globulin gm/dL Albumin/Globulin Ratio (1-2) 08/30/18 08/30/18 08/30/18 Range/Units 05:40 05:40 05:40 WBC 14.86 H (4.23-9.07) K/mm3 RBC 5.87 (4.63-6.08) M/mm3 Hgb 15.8 (13.7-17.5) gm/L Hct 49.3 (40.1-51.0) % MCV 84.0 (79.0-92.2) fl MCH 26.9 (25.7-32.2) pg MCHC 32.0 L (32.2-35.5) g/dl RDW Std Deviation 51.2 H (35.1-43.9) fL Plt Count 207 (163-337) K/mm3 MPV 8.9 L (9.4-12.3) fl PT 12.7 H (9.5-12.1) SECONDS INR 1.17 Sodium 134 L (136-145) mEq/L Potassium 4.4 (3.5-5.1) mEq/L Chloride 99 (98-107) mEq/L Carbon Dioxide 22 (21-32) mEq/L Anion Gap 17.4 H (5-15) BUN 44 H (7-18) mg/dL Creatinine 2.0 H (0.7-1.3) mg/dL Est Cr Clr Drug Dosing 28.90 mL/min Estimated GFR (MDRD) 32 (>60) mL/min BUN/Creatinine Ratio 22.0 H (14-18) Glucose 158 H (83-115) mg/dL POC Glucose (83-110) mg/dL Calcium 8.6 (8.5-10.1) mg/dL Total Bilirubin 0.7 (0.2-1.0) mg/dL AST 21 (15-37) U/L ALT 16 (16-63) U/L Alkaline Phosphatase 81 (46-116) U/L Total Protein 8.2 (6.4-8.2) g/dl Albumin 3.4 (3.4-5.0) g/dl Globulin 4.8 gm/dL Albumin/Globulin Ratio 0.7 L (1-2) Med Orders - Current: Current Medications Hydrocodone Bitart/Acetaminophen ([place] 325-5 Mg) 1 - 2 tab PO Q4H PRN PRN Reason: Pain Last Admin: 08/30/18 03:10 Dose: 2 tab Aspirin (Halfprin) 81 mg PO DAILY [facility] Bisacodyl (Dulcolax) 5 mg PO DAILY PRN PRN Reason: Constipation Cholecalciferol (Vitamin D3) 1 unit PO DAILY [facility] Diltiazem HCl (Dilacor Xr) 240 mg PO DAILY [facility] Docusate Sodium (Colace) 100 mg PO BID [facility] Last Admin: 08/29/18 21:36 Dose: 100 mg Doxazosin Mesylate (Cardura) 4 mg PO BEDTIME [facility] Last Admin: 08/29/18 21:38 Dose: 4 mg Furosemide (Lasix) 20 mg PO DAILY [facility] Glipizide (Glucotrol Xl) 10 mg PO BID [facility] Last Admin: 08/29/18 21:36 Dose: 10 mg Hydrochlorothiazide (Hydrochlorothiazide) 12.5 mg PO DAILY [facility] Insulin Glargine (Lantus) 50 unit SUBCUT DAILY [facility] Insulin Human Lispro (Humalog) 0 unit SUBCUT QIDACANDBED [facility]; Protocol Last Admin: 08/29/18 21:38 Dose: 2 units Levothyroxine Sodium (Synthroid) 50 mcg PO DAILY@0700 [facility] Last Admin: 08/30/18 06:50 Dose: 50 mcg Losartan Potassium (Cozaar) 50 mg PO DAILY [facility] Metoprolol Succinate (Toprol Xl) 100 mg PO DAILY [facility] Morphine Sulfate (Morphine) 2 mg IVPUSH Q2H PRN PRN Reason: Breakthrough Pain Naloxone HCl (Narcan) 0.1 mg IVPUSH Q5M PRN PRN Reason: Oversedation Ondansetron HCl (Zofran) 4 mg IVPUSH Q6H PRN PRN Reason: Nausea/Vomiting Tiotropium Inhaler (18 Mcg Ptom) 0 each INH DAILY [facility] Polyethylene Glycol (Miralax) 17 gm PO DAILY PRN PRN Reason: constipation Senna (Senna) 8.6 mg PO BID PRN PRN Reason: Constipation Triamcinolone Acetonide (Triamcinolone Acetonide 0.1% Crm) 0 gm TOP BID PRN PRN Reason: SKIN COMPLICATIONS Warfarin Sodium (Coumadin) 2.5 mg PO MoWeFr@1800 [facility] Last Admin: 08/29/18 17:35 Dose: 2.5 mg Warfarin Sodium (Coumadin) 5 mg PO SuTuThSa@1800 [facility] Warfarin Sodium (Pharmacy To Dose - Warfarin) 0 dose .XX ASDIRECTED PRN PRN Reason: RX TO DOSE WARFARIN Discontinued Medications Bupivacaine HCl (Marcaine 0.25%) Confirm Administered Dose 30 ml .ROUTE .STK- MED ONE Stop: 08/29/18 06:32 Last Admin: 08/29/18 08:41 Dose: 4 ml Bupivacaine HCl (Sensorcaine-Mpf 0.75%) Confirm Administered Dose 30 ml .ROUTE .STK-MED ONE Stop: 08/29/18 07:29 Cefazolin Sodium (Ancef) Confirm Administered Dose 2 gm .ROUTE .STK-MED ONE Stop: 08/29/18 06:32 Last Admin: 08/29/18 08:10 Dose: 2 gm Cefazolin Sodium (Ancef) Confirm Administered Dose 1 gm .ROUTE .STK-MED ONE Stop: 08/29/18 06:43 Cefazolin Sodium (Ancef) Confirm Administered Dose 2 gm .ROUTE .STK-MED ONE Stop: 08/29/18 06:50 Morphine Sulfate 8 mg/Epinephrine HCl 0.3 mg/Cefuroxime Sodium 750 mg/Sodium Chloride 28.9 ml 0 mg .XX ONETIME ONE Stop: 08/29/18 07:41 Last Admin: 08/29/18 08:15 Dose: 758.3 mg Epinephrine HCl (Adrenalin) Confirm Administered Dose 1 mg .ROUTE .STK-MED ONE Stop: 08/29/18 09:07 Famotidine (Pepcid) 20 mg PO Q12H [facility] Famotidine (Pepcid) 20 mg IVPUSH ONETIME ONE Stop: 08/29/18 06:46 Last Admin: 08/29/18 13:32 Dose: Not Given Fentanyl (Sublimaze) Confirm Administered Dose 100 mcg .ROUTE .STK-MED ONE Stop: 08/29/18 06:50 Lactated Ringer's (Ringers, Lactated) 1,000 mls @ 125 mls/hr IV ASDIRECTED [facility] Stop: 08/29/18 23:00 Last Admin: 08/29/18 06:20 Dose: 125 mls/hr Cefazolin Sodium/Dextrose 2 gm (/ Premix) 50 mls @ 100 mls/hr IV Q8H [facility] Stop: 08/30/18 07:29 Last Admin: 08/30/18 06:50 Dose: 100 mls/hr Lidocaine HCl (Xylocaine-Mpf 1%) Confirm Administered Dose 5 mls @ as directed .ROUTE .STK-MED ONE Stop: 08/29/18 07:29 Iodine (Iodine 2% Mild Tincture) Confirm Administered Dose 30 ml .ROUTE .STK- MED ONE Stop: 08/29/18 06:32 Last Admin: 08/29/18 08:07 Dose: 18 ml Lidocaine/Sodium Bicarbonate (Buffered Lidocaine 1% In Ns 8.4%) 0.25 ml IDERM ONETIME PRN PRN Reason: Prior to IV Start Stop: 08/29/18 23:00 Last Admin: 08/29/18 06:20 Dose: 0.25 ml Ondansetron HCl (Zofran) Confirm Administered Dose 4 mg .ROUTE .STK-MED ONE Stop: 08/29/18 06:49 Phenylephrine HCl (Phenylephrine In Ns 100 Mcg/Ml) Confirm Administered Dose 1 mg .ROUTE .STK-MED ONE Stop: 08/29/18 07:53 Propofol (Diprivan 20 Ml) Confirm Administered Dose 200 mg .ROUTE .STK-MED ONE Stop: 08/29/18 06:49 Ropivacaine (Naropin 0.5%) Confirm Administered Dose 30 ml .ROUTE .STK-MED ONE Stop: 08/29/18 09:07 Sodium Chloride (Saline Flush) 10 ml FLUSH ASDIRECTED PRN PRN Reason: Keep Vein Open Stop: 08/29/18 23:00 Tranexamic Acid (Cyklokapron) Confirm Administered Dose 1,000 mg .ROUTE .STK- MED ONE Stop: 08/29/18 06:32 Last Admin: 08/29/18 08:22 Dose: 1,000 mg Triamcinolone Acetonide (Kenalog-40) Confirm Administered Dose 80 mg .ROUTE .STK -MED ONE Stop: 08/29/18 06:32 Last Admin: 08/29/18 08:41 Dose: 80 mg Vancomycin HCl (Vancomycin) Confirm Administered Dose 1 gm .ROUTE .STK-MED ONE Stop: 08/29/18 06:32 Last Admin: 08/29/18 08:20 Dose: 1 gm - Exam Wound/Incisions: Dressing Dry and Intact General: Alert, Cooperative, No Acute Distress Lungs: Normal Respiratory Effort Extremities: Other (Steve's negative for RLE. NVS intact for BLE.) - Problem List Review Problem List Initiated/Reviewed/Updated: Yes - My Orders Last 24 Hours: Active Orders 24 hr Category Date Time Status Admission Status [Patient Status] [ADT] Routine ADT 08/29/18 10:59 Active Blood Glucose Check, Bedside [RC] QIDACANDBED Care 08/29/18 11:37 Active Cooling Warming Measures [RC] ASDIRECTED Care 08/29/18 08:53 Inactive Notify Provider [RC] ASDIRECTED Care 08/29/18 08:53 Active Oxygen Therapy [RC] ASDIRECTED Care 08/29/18 08:53 Active Pulse Oximetry [RC] ASDIRECTED Care 08/29/18 08:53 Active [employer] Diet [DIET] Diet 08/29/18 Lunch Active BASIC METABOLIC PANEL,BMP [CHEM] AM Lab 08/31/18 05:11 Ordered BASIC METABOLIC PANEL,BMP [CHEM] AM Lab 09/01/18 05:11 Ordered BASIC METABOLIC PANEL,BMP [CHEM] AM Lab 09/02/18 05:11 Ordered BASIC METABOLIC PANEL,BMP [CHEM] AM Lab 09/03/18 05:11 Ordered CBC WITH AUTO DIFF [HEME] AM Lab 08/31/18 05:11 Ordered CBC WITH AUTO DIFF [HEME] AM Lab 09/01/18 05:11 Ordered CBC WITH AUTO DIFF [HEME] AM Lab 09/02/18 05:11 Ordered CBC WITH AUTO DIFF [HEME] AM Lab 09/03/18 05:11 Ordered INR,PT,PROTHROMBIN TIME [COAG] AM Lab 08/31/18 05:11 Ordered INR,PT,PROTHROMBIN TIME [COAG] AM Lab 09/01/18 05:11 Ordered INR,PT,PROTHROMBIN TIME [COAG] AM Lab 09/02/18 05:11 Ordered INR,PT,PROTHROMBIN TIME [COAG] AM Lab 09/03/18 05:11 Ordered MAGNESIUM [CHEM] AM Lab 08/31/18 05:11 Ordered MAGNESIUM [CHEM] AM Lab 09/01/18 05:11 Ordered MAGNESIUM [CHEM] AM Lab 09/02/18 05:11 Ordered MAGNESIUM [CHEM] AM Lab 09/03/18 05:11 Ordered Aspirin [Halfprin] Med 08/30/18 09:00 Active 81 mg PO DAILY Cholecalciferol (Vitamin D3) [Vitamin D3] Med 08/30/18 09:00 Active 1 unit PO DAILY Diltiazem [Dilacor XR] Med 08/30/18 09:00 Active 240 mg PO DAILY Docusate Sodium [Colace] Med 08/29/18 21:00 Active 100 mg PO BID Doxazosin [Cardura] Med 08/29/18 21:00 Active 4 mg PO BEDTIME Furosemide [Lasix] Med 08/30/18 09:00 Hold 20 mg PO DAILY Insulin Glarg,Human.Rec.Analog [LantUS] Med 08/30/18 09:00 Active 50 unit SUBCUT DAILY Insulin Lispro [HumaLOG] Med 08/29/18 12:00 Active See Protocol SUBCUT QIDACANDBED Levothyroxine [Synthroid] Med 08/30/18 07:00 Active 50 mcg PO DAILY@0700 Losartan [Cozaar] Med 08/30/18 09:00 Hold 50 mg PO DAILY Metoprolol Succinate [Toprol XL] Med 08/30/18 09:00 Active 100 mg PO DAILY Patient's Own Medication [Ptom] Med 08/30/18 09:00 Active 0 each INH DAILY Pharmacy to Dose - Warfarin Med 08/29/18 13:45 Active 0 dose .XX ASDIRECTED PRN Polyethylene Glycol 3350 [MiraLAX] Med 08/29/18 13:39 Active 17 gm PO DAILY PRN Triamcinolone Acetonide [Triamcinolone Acetonide 0.1% Med 08/29/18 13:39 Active Crm] 0 gm TOP BID PRN Warfarin [Coumadin] Med 08/29/18 18:00 Active 2.5 mg PO MoWeFr@1800 Warfarin [Coumadin] Med 08/30/18 18:00 Active 5 mg PO SuTuThSa@1800 glipiZIDE [Glucotrol XL] Med 08/29/18 21:00 Active 10 mg PO BID hydroCHLOROthiazide Med 08/30/18 09:00 Active 12.5 mg PO DAILY Medication Orders Hydrocodone Bitart/Acetaminophen ([place] 325-5 Mg) 1 - 2 tab PO Q4H PRN PRN Reason: Pain Last Admin: 08/30/18 03:10 Dose: 2 tab Admin: 08/29/18 15:25 Dose: 1 tab Aspirin (Halfprin) 81 mg PO DAILY [facility] Bisacodyl (Dulcolax) 5 mg PO DAILY PRN PRN Reason: Constipation Cholecalciferol (Vitamin D3) 1 unit PO DAILY [facility] Diltiazem HCl (Dilacor Xr) 240 mg PO DAILY [facility] Docusate Sodium (Colace) 100 mg PO BID [facility] Last Admin: 08/29/18 21:36 Dose: 100 mg Doxazosin Mesylate (Cardura) 4 mg PO BEDTIME [facility] Last Admin: 08/29/18 21:38 Dose: 4 mg Furosemide (Lasix) 20 mg PO DAILY [facility] Glipizide (Glucotrol Xl) 10 mg PO BID [facility] Last Admin: 08/29/18 21:36 Dose: 10 mg Hydrochlorothiazide (Hydrochlorothiazide) 12.5 mg PO DAILY [facility] Insulin Glargine (Lantus) 50 unit SUBCUT DAILY [facility] Insulin Human Lispro (Humalog) 0 unit SUBCUT QIDACANDBED [facility]; Protocol Last Admin: 08/29/18 21:38 Dose: 2 units Admin: 08/29/18 17:36 Dose: 2 units Admin: 08/29/18 13:30 Dose: Levothyroxine Sodium (Synthroid) 50 mcg PO DAILY@0700 [facility] Last Admin: 08/30/18 06:50 Dose: 50 mcg Losartan Potassium (Cozaar) 50 mg PO DAILY [facility] Metoprolol Succinate (Toprol Xl) 100 mg PO DAILY [facility] Morphine Sulfate (Morphine) 2 mg IVPUSH Q2H PRN PRN Reason: Breakthrough Pain Naloxone HCl (Narcan) 0.1 mg IVPUSH Q5M PRN PRN Reason: Oversedation Ondansetron HCl (Zofran) 4 mg IVPUSH Q6H PRN PRN Reason: Nausea/Vomiting Tiotropium Inhaler (18 Mcg Ptom) 0 each INH DAILY [facility] Polyethylene Glycol (Miralax) 17 gm PO DAILY PRN PRN Reason: constipation Senna (Senna) 8.6 mg PO BID PRN PRN Reason: Constipation Triamcinolone Acetonide (Triamcinolone Acetonide 0.1% Crm) 0 gm TOP BID PRN PRN Reason: SKIN COMPLICATIONS Warfarin Sodium (Coumadin) 2.5 mg PO MoWeFr@1800 [facility] Last Admin: 08/29/18 17:35 Dose: 2.5 mg Warfarin Sodium (Coumadin) 5 mg PO SuTuThSa@1800 [facility] Warfarin Sodium (Pharmacy To Dose - Warfarin) 0 dose .XX ASDIRECTED PRN PRN Reason: RX TO DOSE WARFARIN - Assessment Assessment (Free Text/Narrative):: POD#1 - 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 Pt to remain in Hospital for continued monitoring and therapy. 2. Creat 2.0. Medical management per Hospitalist service. 3. Coumadin as per Pharmacy dosing. 4. Likely discharge to [facility] in [place], [place] on 09-01-2018. 5. Hgb 15.8. The pt's case was discussed with Dr. Eldridge.
[2018-08-30] MEDS: [UNRECOGNIZED DRUG - OTHER] INH SCH (08:26)
[2018-08-30] MEDS: Diltiazem 240 MG Cap.ER PO SCH (08:41)
[2018-08-30] MEDS: Hydrochlorothiazide 12.5 MG Cap PO SCH (08:42)
[2018-08-30] MEDS: Aspirin 81 MG Tab.EC PO SCH (08:43)
[2018-08-30] MEDS: Docusate Sodium 100 MG Cap PO SCH ×2 (08:43→21:09)
[2018-08-30] MEDS: glipiZIDE 5 MG Tab.ER PO SCH ×2 (08:44→21:10)
[2018-08-30] MEDS ORDERED: Sodium Chloride 0.9% 1,000 ML IV SCH (08:45)
[2018-08-30] MEDS: Insulin Glarg,Human.Rec.Analog 100 UNIT/ML ML SUBCUT SCH (08:45)
[2018-08-30] MEDS: Insulin Lispro 100 Units/ML 3 ML Vial SUBCUT SCH ×4 (08:48→21:11)
[2018-08-30] MEDS: Metoprolol Succinate 50 MG Tab.ER PO SCH (08:52)
[2018-08-30] MEDS: Cholecalciferol (Vitamin D3) 5,000 UNIT Tab PO SCH (08:58)
[2018-08-30] MEDS ORDERED: Cholecalciferol (Vitamin D3) 5,000 UNIT Tab PO SCH (09:00)
[2018-08-30] MEDS ORDERED: Metoprolol Tartrate 5 MG/5 ML SDV IVPUSH PRN (09:39)
[2018-08-30] MEDS ORDERED: Diltiazem 50 MG/10 ML SDV IVPUSH PRN (12:00)
--- NOTE | 2018-08-30 16:22 | PCM.OPNOTE ---
- General Post-Op/Procedure Note Date of Surgery/Procedure: 08/29/18 Operative Procedure(s): right total knee arthroplasty with left knee corticosteroid injection Pre Op Diagnosis: bilateral knee osteoarthrosis Post-Op Diagnosis: Same Anesthesia Technique: Local, MAC, Spinal Primary Surgeon: Jaxson Eldridge Anesthesia Provider: Lefty Dunn Traffic Supervisor: Tatum Masterson Traffic Supervisor: Neva Schultz EBL in mLs: 10 Complications: None Condition: Good Free Text/Narrative:: Intake & Output 08/30/18 08/30/18 08/30/18 06:59 14:59 22:59 Intake Total 850 480 Balance 850 480 size 4 femur size 5 tibia 9mm 29x9mm cemented
--- NOTE | 2018-08-30 16:54 | OR ---
DATE OF OPERATION: 08/29/2018 SURGEON: Jaxson Eldridge MD OPERATION PERFORMED: Right total knee arthroplasty with left knee corticosteroid injection. PREOPERATIVE DIAGNOSIS: Bilateral knee osteoarthrosis. POSTOPERATIVE DIAGNOSIS: Bilateral knee osteoarthrosis. ANESTHESIA: Local MAC with spinal. ANESTHESIA PROVIDER: Lefty Dunn CRNA ASSISTANTS: Tatum Masterson PA-C and Neva Schultz LPN. ESTIMATED BLOOD LOSS: 10 mL. COMPLICATIONS: None. CONDITION: Stable. DESCRIPTION OF PROCEDURE: The patient was identified in the preop holding area. Proper site was marked and identified by the surgeon. The patient was taken back to the operating theater. After adequate anesthesia, the patient's right lower extremity had a nonsterile tourniquet applied and was then sterilely prepped and draped in the usual sterile fashion. OR time-out was performed. The patient received 2 g IV Ancef. At this time, right lower extremity was exsanguinated. Tourniquet was insufflated to 250 mmHg. Standard medial parapatellar incision was made. Medial parapatellar arthrotomy was created. Deep fibers of the MCL were raised. The anterior fat pad was resected. At this time, attention was turned to the patella. Patella measured 19, it was resected to 13 for a 29 x 9 mm patella. Drill hole was then drilled, found be adequate. At this time, drill hole was placed in the distal femur. Intramedullary distal femoral cutting guide was then placed. An 8 mm resected off the distal femur. Sizing guide was placed. It was found to be a size 4 femur. Epicondylar axis holes were then drilled using Whitesides line and epicondyles as reference. A 4 in 1 cutting block was then placed anterior and posterior and anterior and posterior chamfer cuts were then completed. Box cut was then completed at this time, as well. Attention was turned to the tibia. Posterior mediolateral retractors were then placed. The extramedullary tibial cutting guide was then placed in the old footprint of the ACL and 9 mm was measured off the less affected lateral side. After accounting for 0 degrees varus and valgus, and roughly 3 degrees posterior slope, this was then pinned in place and resection was carried out. It was found to be an adequate resection. The medial lateral meniscus was removed along with any posterior osteophytes. The size 5 tibial base plate was found to have adequate coverage. Trial implants were then placed. 9 mm trial poly was placed. The patient had full knee flexion and extension with stable varus and valgus stresses and patella was tracking centrally. At this time, cement was mixed on the back table. All cut surfaces were irrigated with pulse lavage irrigation with Ancef after the tibia was properly stamped and drilled in the proper rotation. At this time, once the cement was ready, the size 5 tibial base plate was impacted into place. Excess cement was removed. The size 4 femur was impacted in place. Then cemented in place, and a 9 mm PS X3 polyethylene was placed. At this time, the patient's knee was brought into full extension. Excess cement was removed and the 29 x 9 mm patella was cemented into place. A 1 L dilute Betadine solution was irrigated through the knee along 3 L of pulse lavage irrigation with Ancef. Periarticular injection was completed along with topical tranexamic acid and vancomycin powder. #2 barbed suture was used for closure of the medial parapatellar arthrotomy and 2-0 Vicryl was used subcutaneously. Prineo was used for the skin. The patient was placed in a sterile soft dressing and sent back to PACU in stable condition. After this was completed, the patient also underwent an intra-articular injection of the left knee under sterile technique, 2 mL of 40 mg Kenalog and 4 mL of 0.25% Marcaine were injected in the left knee. The patient tolerated both procedures well and was sent to PACU in stable condition. LISSY /[id number]
[2018-08-30] MEDS ORDERED: Warfarin 5 MG Tab PO SCH (18:00)
[2018-08-30] MEDS: Doxazosin 4 MG Tab PO SCH (21:10)
[2018-08-31] MEDS: Acetaminophen/HYDROcodone 325-5 MG Tab PO PRN ×4 (04:56→23:33)
[2018-08-31] MEDS: Insulin Lispro 100 Units/ML 3 ML Vial SUBCUT SCH ×4 (06:15→21:35)
[2018-08-31] MEDS: Levothyroxine 50 MCG Tab PO SCH (06:22)
--- NOTE | 2018-08-31 07:40 | PCM.PN ---
- General Info Date of Service: 08/31/18 Admission Dx/Problem (Free Text): Admission Diagnosis/Problem Admission Diagnosis/Problem Osteoarthritis of knee Functional Status: Reports: Pain Controlled, Tolerating Diet, Ambulating, Urinating, Incentive Spirometry. Denies: New Symptoms - Review of Systems General: Reports: No Symptoms. Denies: Fever, Weakness, Fatigue, Malaise HEENT: Reports: No Symptoms. Denies: Headaches, Sore Throat Pulmonary: Reports: No Symptoms. Denies: Shortness of Breath, Cough, Sputum, Wheezing Cardiovascular: Reports: No Symptoms. Denies: Chest Pain, Palpitations, Dyspnea on Exertion, Edema Gastrointestinal: Reports: No Symptoms. Denies: Abdominal Pain, Constipation, Diarrhea, Nausea, Vomiting Genitourinary: Reports: No Symptoms. Denies: Pain Musculoskeletal: Reports: No Symptoms Skin: Reports: No Symptoms Neurological: Reports: No Symptoms. Denies: Confusion, Difficulty Walking, Gait Disturbance Psychiatric: Reports: No Symptoms - Patient Data Vitals - Most Recent: Last Vital Signs Temp 98.1 F 08/31/18 04:54 Pulse 60 08/31/18 04:54 Resp 20 08/31/18 04:54 BP 113/71 08/31/18 04:54 Pulse Ox 92 L 08/31/18 04:54 Weight - Most Recent: 241 lb 2 oz I&O - Last 24 Hours: Intake & Output 08/30/18 08/31/18 08/31/18 22:59 06:59 14:59 Intake Total 1003 1067 Balance 1003 1067 Lab Results Last 24 Hours: Laboratory Results - last 24 hr 08/30/18 08/30/18 08/30/18 Range/Units 05:40 06:55 11:18 WBC (4.23-9.07) K/mm3 RBC (4.63-6.08) M/mm3 Hgb (13.7-17.5) gm/L Hct (40.1-51.0) % MCV (79.0-92.2) fl MCH (25.7-32.2) pg MCHC (32.2-35.5) g/dl RDW Std Deviation (35.1-43.9) fL Plt Count (163-337) K/mm3 MPV (9.4-12.3) fl Neut % (Auto) (34.0-67.9) % Lymph % (Auto) (21.8-53.1) % [place] % (Auto) (5.3-12.2) % Eos % (Auto) (0.8-7.0) Baso % (Auto) (0.1-1.2) % Neut # (Auto) (1.78-5.38) K/mm3 Lymph # (Auto) (1.32-3.57) K/mm3 [place] # (Auto) (0.30-0.82) K/mm3 Eos # (Auto) (0.04-0.54) K/mm3 Baso # (Auto) (0.01-0.08) K/mm3 PT (9.5-12.1) SECONDS INR Sodium (136-145) mEq/L Potassium (3.5-5.1) mEq/L Chloride (98-107) mEq/L Carbon Dioxide (21-32) mEq/L Anion Gap (5-15) BUN (7-18) mg/dL Creatinine (0.7-1.3) mg/dL Est Cr Clr Drug Dosing mL/min Estimated GFR (MDRD) (>60) mL/min BUN/Creatinine Ratio (14-18) Glucose (83-115) mg/dL POC Glucose 184 H 201 H (83-110) mg/dL Calcium (8.5-10.1) mg/dL Magnesium 1.9 (1.8-2.4) mg/dl 08/30/18 08/30/18 08/31/18 Range/Units 17:28 21:06 05:38 WBC (4.23-9.07) K/mm3 RBC (4.63-6.08) M/mm3 Hgb (13.7-17.5) gm/L Hct (40.1-51.0) % MCV (79.0-92.2) fl MCH (25.7-32.2) pg MCHC (32.2-35.5) g/dl RDW Std Deviation (35.1-43.9) fL Plt Count (163-337) K/mm3 MPV (9.4-12.3) fl Neut % (Auto) (34.0-67.9) % Lymph % (Auto) (21.8-53.1) % [place] % (Auto) (5.3-12.2) % Eos % (Auto) (0.8-7.0) Baso % (Auto) (0.1-1.2) % Neut # (Auto) (1.78-5.38) K/mm3 Lymph # (Auto) (1.32-3.57) K/mm3 [place] # (Auto) (0.30-0.82) K/mm3 Eos # (Auto) (0.04-0.54) K/mm3 Baso # (Auto) (0.01-0.08) K/mm3 PT 12.9 H (9.5-12.1) SECONDS INR 1.19 Sodium (136-145) mEq/L Potassium (3.5-5.1) mEq/L Chloride (98-107) mEq/L Carbon Dioxide (21-32) mEq/L Anion Gap (5-15) BUN (7-18) mg/dL Creatinine (0.7-1.3) mg/dL Est Cr Clr Drug Dosing mL/min Estimated GFR (MDRD) (>60) mL/min BUN/Creatinine Ratio (14-18) Glucose (83-115) mg/dL POC Glucose 191 H 182 H (83-110) mg/dL Calcium (8.5-10.1) mg/dL Magnesium (1.8-2.4) mg/dl 08/31/18 08/31/18 08/31/18 Range/Units 05:38 05:38 06:08 WBC 13.28 H (4.23-9.07) K/mm3 RBC 5.50 (4.63-6.08) M/mm3 Hgb 14.8 (13.7-17.5) gm/L Hct 46.4 (40.1-51.0) % MCV 84.4 (79.0-92.2) fl MCH 26.9 (25.7-32.2) pg MCHC 31.9 L (32.2-35.5) g/dl RDW Std Deviation 51.3 H (35.1-43.9) fL Plt Count 187 (163-337) K/mm3 MPV 9.0 L (9.4-12.3) fl Neut % (Auto) 78.5 H (34.0-67.9) % Lymph % (Auto) 9.6 L (21.8-53.1) % [place] % (Auto) 10.8 (5.3-12.2) % Eos % (Auto) 0.8 (0.8-7.0) Baso % (Auto) 0.1 (0.1-1.2) % Neut # (Auto) 10.42 H (1.78-5.38) K/mm3 Lymph # (Auto) 1.28 L (1.32-3.57) K/mm3 [place] # (Auto) 1.44 H (0.30-0.82) K/mm3 Eos # (Auto) 0.10 (0.04-0.54) K/mm3 Baso # (Auto) 0.01 (0.01-0.08) K/mm3 PT (9.5-12.1) SECONDS INR Sodium 134 L (136-145) mEq/L Potassium 4.1 (3.5-5.1) mEq/L Chloride 102 (98-107) mEq/L Carbon Dioxide 21 (21-32) mEq/L Anion Gap 15.1 H (5-15) BUN 45 H (7-18) mg/dL Creatinine 1.7 H (0.7-1.3) mg/dL Est Cr Clr Drug Dosing 34.08 mL/min Estimated GFR (MDRD) 39 (>60) mL/min BUN/Creatinine Ratio 26.5 H (14-18) Glucose 118 H (83-115) mg/dL POC Glucose 134 H (83-110) mg/dL Calcium 8.1 L (8.5-10.1) mg/dL Magnesium 1.8 (1.8-2.4) mg/dl Med Orders - Current: Current Medications Hydrocodone Bitart/Acetaminophen ([place] 325-5 Mg) 1 - 2 tab PO Q4H PRN PRN Reason: Pain Last Admin: 08/31/18 04:56 Dose: 2 tab Aspirin (Halfprin) 81 mg PO DAILY [facility] Last Admin: 08/30/18 08:43 Dose: 81 mg Bisacodyl (Dulcolax) 5 mg PO DAILY PRN PRN Reason: Constipation Cholecalciferol (Vitamin D3) 5,000 unit PO DAILY [facility] Last Admin: 08/30/18 08:58 Dose: 5,000 unit Diltiazem HCl (Dilacor Xr) 240 mg PO DAILY [facility] Last Admin: 08/30/18 08:41 Dose: 240 mg Diltiazem HCl (Cardizem) 10 mg IVPUSH Q4H PRN PRN Reason: FOR HR > 110 Docusate Sodium (Colace) 100 mg PO BID [facility] Last Admin: 08/30/18 21:09 Dose: 100 mg Doxazosin Mesylate (Cardura) 4 mg PO BEDTIME [facility] Last Admin: 08/30/18 21:10 Dose: 4 mg Furosemide (Lasix) 20 mg PO DAILY [facility] Glipizide (Glucotrol Xl) 10 mg PO BID [facility] Last Admin: 08/30/18 21:10 Dose: 10 mg Hydrochlorothiazide (Hydrochlorothiazide) 12.5 mg PO DAILY [facility] Last Admin: 08/30/18 08:42 Dose: 12.5 mg Insulin Glargine (Lantus) 50 unit SUBCUT DAILY [facility] Last Admin: 08/30/18 08:45 Dose: 50 units Insulin Human Lispro (Humalog) 0 unit SUBCUT QIDACANDBED [facility]; Protocol Last Admin: 08/31/18 06:15 Dose: Not Given Levothyroxine Sodium (Synthroid) 50 mcg PO DAILY@0700 [facility] Last Admin: 08/31/18 06:22 Dose: 50 mcg Losartan Potassium (Cozaar) 50 mg PO DAILY [facility] Metoprolol Succinate (Toprol Xl) 100 mg PO DAILY [facility] Last Admin: 08/30/18 08:52 Dose: 100 mg Morphine Sulfate (Morphine) 2 mg IVPUSH Q2H PRN PRN Reason: Breakthrough Pain Naloxone HCl (Narcan) 0.1 mg IVPUSH Q5M PRN PRN Reason: Oversedation Ondansetron HCl (Zofran) 4 mg IVPUSH Q6H PRN PRN Reason: Nausea/Vomiting Tiotropium Respimat (2.5 Mcg Ptom) 0 each INH DAILY [facility] Last Admin: 08/30/18 08:26 Dose: 2 each Polyethylene Glycol (Miralax) 17 gm PO DAILY PRN PRN Reason: constipation Senna (Senna) 8.6 mg PO BID PRN PRN Reason: Constipation Triamcinolone Acetonide (Triamcinolone Acetonide 0.1% Crm) 0 gm TOP BID PRN PRN Reason: SKIN COMPLICATIONS Warfarin Sodium (Coumadin) 2.5 mg PO MoWeFr@1800 [facility] Last Admin: 08/29/18 17:35 Dose: 2.5 mg Warfarin Sodium (Coumadin) 5 mg PO SuTuThSa@1800 [facility] Last Admin: 08/30/18 17:26 Dose: 5 mg Warfarin Sodium (Pharmacy To Dose - Warfarin) 0 dose .XX ASDIRECTED PRN PRN Reason: RX TO DOSE WARFARIN Discontinued Medications Bupivacaine HCl (Marcaine 0.25%) Confirm Administered Dose 30 ml .ROUTE .STK- MED ONE Stop: 08/29/18 06:32 Last Admin: 08/29/18 08:41 Dose: 4 ml Bupivacaine HCl (Sensorcaine-Mpf 0.75%) Confirm Administered Dose 30 ml .ROUTE .STK-MED ONE Stop: 08/29/18 07:29 Cefazolin Sodium (Ancef) Confirm Administered Dose 2 gm .ROUTE .STK-MED ONE Stop: 08/29/18 06:32 Last Admin: 08/29/18 08:10 Dose: 2 gm Cefazolin Sodium (Ancef) Confirm Administered Dose 1 gm .ROUTE .STK-MED ONE Stop: 08/29/18 06:43 Cefazolin Sodium (Ancef) Confirm Administered Dose 2 gm .ROUTE .STK-MED ONE Stop: 08/29/18 06:50 Cholecalciferol (Vitamin D3) 1 unit PO DAILY [facility] Morphine Sulfate 8 mg/Epinephrine HCl 0.3 mg/Cefuroxime Sodium 750 mg/Sodium Chloride 28.9 ml 0 mg .XX ONETIME ONE Stop: 08/29/18 07:41 Last Admin: 08/29/18 08:15 Dose: 758.3 mg Epinephrine HCl (Adrenalin) Confirm Administered Dose 1 mg .ROUTE .STK-MED ONE Stop: 08/29/18 09:07 Famotidine (Pepcid) 20 mg PO Q12H [facility] Famotidine (Pepcid) 20 mg IVPUSH ONETIME ONE Stop: 08/29/18 06:46 Last Admin: 08/29/18 13:32 Dose: Not Given Fentanyl (Sublimaze) Confirm Administered Dose 100 mcg .ROUTE .STK-MED ONE Stop: 08/29/18 06:50 Lactated Ringer's (Ringers, Lactated) 1,000 mls @ 125 mls/hr IV ASDIRECTED [facility] Stop: 08/29/18 23:00 Last Admin: 08/29/18 06:20 Dose: 125 mls/hr Cefazolin Sodium/Dextrose 2 gm (/ Premix) 50 mls @ 100 mls/hr IV Q8H [facility] Stop: 08/30/18 07:29 Last Admin: 08/30/18 06:50 Dose: 100 mls/hr Lidocaine HCl (Xylocaine-Mpf 1%) Confirm Administered Dose 5 mls @ as directed .ROUTE .STK-MED ONE Stop: 08/29/18 07:29 Sodium Chloride (Normal Saline) 1,000 mls @ 75 mls/hr IV ASDIRECTED [facility] Stop: 08/30/18 22:04 Last Admin: 08/30/18 10:02 Dose: 75 mls/hr Iodine (Iodine 2% Mild Tincture) Confirm Administered Dose 30 ml .ROUTE .STK- MED ONE Stop: 08/29/18 06:32 Last Admin: 08/29/18 08:07 Dose: 18 ml Lidocaine/Sodium Bicarbonate (Buffered Lidocaine 1% In Ns 8.4%) 0.25 ml IDERM ONETIME PRN PRN Reason: Prior to IV Start Stop: 08/29/18 23:00 Last Admin: 08/29/18 06:20 Dose: 0.25 ml Metoprolol Tartrate (Lopressor) 5 mg IVPUSH Q6H PRN PRN Reason: Tachycardia Last Admin: 08/30/18 09:59 Dose: 5 mg Ondansetron HCl (Zofran) Confirm Administered Dose 4 mg .ROUTE .STK-MED ONE Stop: 08/29/18 06:49 Phenylephrine HCl (Phenylephrine In Ns 100 Mcg/Ml) Confirm Administered Dose 1 mg .ROUTE .STK-MED ONE Stop: 08/29/18 07:53 Propofol (Diprivan 20 Ml) Confirm Administered Dose 200 mg .ROUTE .STK-MED ONE Stop: 08/29/18 06:49 Ropivacaine (Naropin 0.5%) Confirm Administered Dose 30 ml .ROUTE .STK-MED ONE Stop: 08/29/18 09:07 Sodium Chloride (Saline Flush) 10 ml FLUSH ASDIRECTED PRN PRN Reason: Keep Vein Open Stop: 08/29/18 23:00 Tranexamic Acid (Cyklokapron) Confirm Administered Dose 1,000 mg .ROUTE .STK- MED ONE Stop: 08/29/18 06:32 Last Admin: 08/29/18 08:22 Dose: 1,000 mg Triamcinolone Acetonide (Kenalog-40) Confirm Administered Dose 80 mg .ROUTE .STK -MED ONE Stop: 08/29/18 06:32 Last Admin: 08/29/18 08:41 Dose: 80 mg Vancomycin HCl (Vancomycin) Confirm Administered Dose 1 gm .ROUTE .STK-MED ONE Stop: 08/29/18 06:32 Last Admin: 08/29/18 08:20 Dose: 1 gm - Exam Quality Assessment: DVT Prophylaxis General: Alert, Oriented, Cooperative, No Acute Distress HEENT: Pupils Equal Neck: Supple, Trachea Midline, No JVD Lungs: Clear to Auscultation, Normal Respiratory Effort Cardiovascular: Regular Rate, Regular Rhythm GI/Abdominal Exam: Normal Bowel Sounds, Soft, Non-Tender, No Distention, No Abnormal Bruit (Male) Exam: Deferred Back Exam: Normal Inspection, Full Range of Motion Extremities: No Pedal Edema, Normal Capillary Refill, Leg Pain, Limited Range of Motion, Other Peripheral Pulses: 2+: Radial (L), Radial (R), Dorsalis Pedis (L), Dorsalis Pedis (R) Skin: Warm, Dry, Intact Neurological: No New Focal Deficit Psy/Mental Status: Alert, Normal Affect, Normal Mood - Problem List & Annotations (1) S/P total knee arthroplasty SNOMED Code(s): 5947511027204, 381844280, 9780657118523 Code(s): Z96.659 - PRESENCE OF UNSPECIFIED ARTIFICIAL KNEE JOINT Status: Acute Priority: High Current Visit: Yes Qualifiers: Laterality: right Qualified Code(s): Z96.651 - Presence of right artificial knee joint (2) Osteoarthritis SNOMED Code(s): 874881253 Code(s): M19.90 - UNSPECIFIED OSTEOARTHRITIS, UNSPECIFIED SITE Status: Acute Priority: High Current Visit: Yes Qualifiers: Osteoarthritis location: knee Osteoarthritis type: primary Laterality: bilateral Qualified Code(s): M17.0 - Bilateral primary osteoarthritis of knee (3) CHF (congestive heart failure) SNOMED Code(s): 14936179 Code(s): I50.9 - HEART FAILURE, UNSPECIFIED Status: Acute Priority: Medium Current Visit: No Qualifiers: Heart failure type: unspecified Heart failure chronicity: unspecified Qualified Code(s): I50.9 - Heart failure, unspecified (4) HLD (hyperlipidemia) SNOMED Code(s): 73336169 Code(s): E78.5 - HYPERLIPIDEMIA, UNSPECIFIED Status: Acute Priority: Low Current Visit: No Qualifiers: Hyperlipidemia type: unspecified Qualified Code(s): E78.5 - Hyperlipidemia , unspecified (5) Chronic lower back pain SNOMED Code(s): 097931191 Code(s): M54.5 - LOW BACK PAIN; G89.29 - OTHER CHRONIC PAIN Status: Acute Priority: Low Current Visit: No Qualifiers: Back pain laterality: unspecified Sciatica presence: unspecified whether sciatica present Qualified Code(s): M54.5 - Low back pain; G89.29 - Other chronic pain (6) COPD (chronic obstructive pulmonary disease) SNOMED Code(s): 53643067 Code(s): J44.9 - CHRONIC OBSTRUCTIVE PULMONARY DISEASE, UNSPECIFIED Status : Acute Priority: Medium Current Visit: No Qualifiers: COPD type: unspecified COPD Qualified Code(s): J44.9 - Chronic obstructive pulmonary disease, unspecified (7) History of AAA (abdominal aortic aneurysm) repair SNOMED Code(s): 419852002 Code(s): Z98.890 - OTHER SPECIFIED POSTPROCEDURAL STATES Status: Acute Priority: Medium Current Visit: No (8) Hypothyroidism SNOMED Code(s): 66549039 Code(s): E03.9 - HYPOTHYROIDISM, UNSPECIFIED Status: Acute Priority: Medium Current Visit: No Qualifiers: Hypothyroidism type: unspecified Qualified Code(s): E03.9 - Hypothyroidism , unspecified (9) Type II diabetes mellitus SNOMED Code(s): 75142544 Code(s): E11.9 - TYPE 2 DIABETES MELLITUS WITHOUT COMPLICATIONS Status: Acute Priority: Medium Current Visit: No Qualifiers: Diabetes mellitus rat exterminator insulin use: unspecified fpc insulin use status Diabetes mellitus complication status: with unspecified complications Qualified Code(s): E11.8 - Type 2 diabetes mellitus with unspecified complications (10) A-fib SNOMED Code(s): 28901923 Code(s): I48.91 - UNSPECIFIED ATRIAL FIBRILLATION Status: Acute Priority : Medium Current Visit: No Qualifiers: Atrial fibrillation type: unspecified Qualified Code(s): I48.91 - Unspecified atrial fibrillation (11) CKD (chronic kidney disease) SNOMED Code(s): 540103423 Code(s): N18.9 - CHRONIC KIDNEY DISEASE, UNSPECIFIED Status: Acute Priority: Medium Current Visit: No Qualifiers: Chronic kidney disease stage: stage 3 (moderate) Qualified Code(s): N18.3 - Chronic kidney disease, stage 3 (moderate) (12) CAD (coronary artery disease) SNOMED Code(s): 74222746 Code(s): I25.10 - ATHSCL HEART DISEASE OF [place] CORONARY ARTERY W/O ANG PCTRS Status: Acute Priority: Medium Current Visit: No Qualifiers: Coronary Disease-Associated Artery/Lesion type: unspecified vessel or lesion type [place] vs. transplanted heart: [place] heart Associated angina: angina presence unspecified Qualified Code(s): I25.10 - Atherosclerotic heart disease of [place] coronary artery without angina pectoris (13) History of four vessel coronary artery bypass graft SNOMED Code(s): 042245868, 947100072 Code(s): Z95.1 - PRESENCE OF AORTOCORONARY BYPASS GRAFT Status: Acute Priority: Medium Current Visit: No - Problem List Review Problem List Initiated/Reviewed/Updated: Yes - My Orders Last 24 Hours: My Active Orders 08/30/18 10:40 Consult to Corporate Operations Compliance Manager [Consult to Diabetic Nurse Specialist] [CONS] Routine 08/31/18 05:38 CBC WITH AUTO DIFF [HEME] AM 09/01/18 05:11 BASIC METABOLIC PANEL,BMP [CHEM] AM CBC WITH AUTO DIFF [HEME] AM MAGNESIUM [CHEM] AM 09/02/18 05:11 BASIC METABOLIC PANEL,BMP [CHEM] AM CBC WITH AUTO DIFF [HEME] AM MAGNESIUM [CHEM] AM 09/03/18 05:11 BASIC METABOLIC PANEL,BMP [CHEM] AM CBC WITH AUTO DIFF [HEME] AM MAGNESIUM [CHEM] AM
--- NOTE | 2018-08-31 07:43 | PCM.CONSN ---
- General Info Date of Service: 08/31/18 Subjective Update: In to see Jon. He is sitting up in the chair and ready to work with PT. Heart rate has been controlled with pain medications. He is doing very well. He has urinated. He is off of oxygen. He continues to ambulate and work with therapies. Plan is for discharge tomorrow to swing bed in [place] pending continued improvement and the weather. Functional Status: Reports: Pain Controlled, Tolerating Diet, Ambulating, Urinating, Incentive Spirometry. Denies: New Symptoms - Review of Systems General: Reports: No Symptoms. Denies: Fever, Weakness, Fatigue, Malaise, Chills HEENT: Reports: No Symptoms. Denies: Headaches, Sore Throat Pulmonary: Reports: No Symptoms. Denies: Shortness of Breath, Pleuritic Chest Pain, Cough, Sputum Cardiovascular: Reports: No Symptoms. Denies: Chest Pain, Palpitations, Dyspnea on Exertion, Edema Gastrointestinal: Reports: No Symptoms. Denies: Abdominal Pain, Constipation, Diarrhea, Nausea, Vomiting Genitourinary: Reports: No Symptoms. Denies: Pain Musculoskeletal: Reports: Leg Pain Skin: Reports: No Symptoms. Denies: Cyanosis Neurological: Reports: No Symptoms. Denies: Confusion Psychiatric: Reports: No Symptoms. Denies: Confusion - Patient Data Vitals - Most Recent: Last Vital Signs Temp 98.1 F 08/31/18 04:54 Pulse 60 08/31/18 04:54 Resp 20 08/31/18 04:54 BP 113/71 08/31/18 04:54 Pulse Ox 92 L 08/31/18 04:54 Weight - Most Recent: 241 lb 2 oz I&O - Last 24 Hours: Intake & Output 08/30/18 08/31/18 08/31/18 22:59 06:59 14:59 Intake Total 1003 1067 Balance 1003 1067 Lab Results Last 24 Hours: Laboratory Results - last 24 hr 08/30/18 08/30/18 08/30/18 Range/Units 05:40 06:55 11:18 WBC (4.23-9.07) K/mm3 RBC (4.63-6.08) M/mm3 Hgb (13.7-17.5) gm/L Hct (40.1-51.0) % MCV (79.0-92.2) fl MCH (25.7-32.2) pg MCHC (32.2-35.5) g/dl RDW Std Deviation (35.1-43.9) fL Plt Count (163-337) K/mm3 MPV (9.4-12.3) fl Neut % (Auto) (34.0-67.9) % Lymph % (Auto) (21.8-53.1) % [place] % (Auto) (5.3-12.2) % Eos % (Auto) (0.8-7.0) Baso % (Auto) (0.1-1.2) % Neut # (Auto) (1.78-5.38) K/mm3 Lymph # (Auto) (1.32-3.57) K/mm3 [place] # (Auto) (0.30-0.82) K/mm3 Eos # (Auto) (0.04-0.54) K/mm3 Baso # (Auto) (0.01-0.08) K/mm3 PT (9.5-12.1) SECONDS INR Sodium (136-145) mEq/L Potassium (3.5-5.1) mEq/L Chloride (98-107) mEq/L Carbon Dioxide (21-32) mEq/L Anion Gap (5-15) BUN (7-18) mg/dL Creatinine (0.7-1.3) mg/dL Est Cr Clr Drug Dosing mL/min Estimated GFR (MDRD) (>60) mL/min BUN/Creatinine Ratio (14-18) Glucose (83-115) mg/dL POC Glucose 184 H 201 H (83-110) mg/dL Calcium (8.5-10.1) mg/dL Magnesium 1.9 (1.8-2.4) mg/dl 08/30/18 08/30/18 08/31/18 Range/Units 17:28 21:06 05:38 WBC (4.23-9.07) K/mm3 RBC (4.63-6.08) M/mm3 Hgb (13.7-17.5) gm/L Hct (40.1-51.0) % MCV (79.0-92.2) fl MCH (25.7-32.2) pg MCHC (32.2-35.5) g/dl RDW Std Deviation (35.1-43.9) fL Plt Count (163-337) K/mm3 MPV (9.4-12.3) fl Neut % (Auto) (34.0-67.9) % Lymph % (Auto) (21.8-53.1) % [place] % (Auto) (5.3-12.2) % Eos % (Auto) (0.8-7.0) Baso % (Auto) (0.1-1.2) % Neut # (Auto) (1.78-5.38) K/mm3 Lymph # (Auto) (1.32-3.57) K/mm3 [place]th # (Auto) (0.30-0.82) K/mm3 Eos # (Auto) (0.04-0.54) K/mm3 Baso # (Auto) (0.01-0.08) K/mm3 PT 12.9 H (9.5-12.1) SECONDS INR 1.19 Sodium (136-145) mEq/L Potassium (3.5-5.1) mEq/L Chloride (98-107) mEq/L Carbon Dioxide (21-32) mEq/L Anion Gap (5-15) BUN (7-18) mg/dL Creatinine (0.7-1.3) mg/dL Est Cr Clr Drug Dosing mL/min Estimated GFR (MDRD) (>60) mL/min BUN/Creatinine Ratio (14-18) Glucose (83-115) mg/dL POC Glucose 191 H 182 H (83-110) mg/dL Calcium (8.5-10.1) mg/dL Magnesium (1.8-2.4) mg/dl 08/31/18 08/31/18 08/31/18 Range/Units 05:38 05:38 06:08 WBC 13.28 H (4.23-9.07) K/mm3 RBC 5.50 (4.63-6.08) M/mm3 Hgb 14.8 (13.7-17.5) gm/L Hct 46.4 (40.1-51.0) % MCV 84.4 (79.0-92.2) fl MCH 26.9 (25.7-32.2) pg MCHC 31.9 L (32.2-35.5) g/dl RDW Std Deviation 51.3 H (35.1-43.9) fL Plt Count 187 (163-337) K/mm3 MPV 9.0 L (9.4-12.3) fl Neut % (Auto) 78.5 H (34.0-67.9) % Lymph % (Auto) 9.6 L (21.8-53.1) % [place]th % (Auto) 10.8 (5.3-12.2) % Eos % (Auto) 0.8 (0.8-7.0) Baso % (Auto) 0.1 (0.1-1.2) % Neut # (Auto) 10.42 H (1.78-5.38) K/mm3 Lymph # (Auto) 1.28 L (1.32-3.57) K/mm3 [place]th # (Auto) 1.44 H (0.30-0.82) K/mm3 Eos # (Auto) 0.10 (0.04-0.54) K/mm3 Baso # (Auto) 0.01 (0.01-0.08) K/mm3 PT (9.5-12.1) SECONDS INR Sodium 134 L (136-145) mEq/L Potassium 4.1 (3.5-5.1) mEq/L Chloride 102 (98-107) mEq/L Carbon Dioxide 21 (21-32) mEq/L Anion Gap 15.1 H (5-15) BUN 45 H (7-18) mg/dL Creatinine 1.7 H (0.7-1.3) mg/dL Est Cr Clr Drug Dosing 34.08 mL/min Estimated GFR (MDRD) 39 (>60) mL/min BUN/Creatinine Ratio 26.5 H (14-18) Glucose 118 H (83-115) mg/dL POC Glucose 134 H (83-110) mg/dL Calcium 8.1 L (8.5-10.1) mg/dL Magnesium 1.8 (1.8-2.4) mg/dl Med Orders - Current: Current Medications Hydrocodone Bitart/Acetaminophen (Rufe 325-5 Mg) 1 - 2 tab PO Q4H PRN PRN Reason: Pain Last Admin: 08/31/18 04:56 Dose: 2 tab Aspirin (Halfprin) 81 mg PO DAILY LUCILA Last Admin: 08/30/18 08:43 Dose: 81 mg Bisacodyl (Dulcolax) 5 mg PO DAILY PRN PRN Reason: Constipation Cholecalciferol (Vitamin D3) 5,000 unit PO DAILY [facility] Last Admin: 08/30/18 08:58 Dose: 5,000 unit Diltiazem HCl (Dilacor Xr) 240 mg PO DAILY [facility] Last Admin: 08/30/18 08:41 Dose: 240 mg Diltiazem HCl (Cardizem) 10 mg IVPUSH Q4H PRN PRN Reason: FOR HR > 110 Docusate Sodium (Colace) 100 mg PO BID [facility] Last Admin: 08/30/18 21:09 Dose: 100 mg Doxazosin Mesylate (Cardura) 4 mg PO BEDTIME [facility] Last Admin: 08/30/18 21:10 Dose: 4 mg Furosemide (Lasix) 20 mg PO DAILY [facility] Glipizide (Glucotrol Xl) 10 mg PO BID [facility] Last Admin: 08/30/18 21:10 Dose: 10 mg Hydrochlorothiazide (Hydrochlorothiazide) 12.5 mg PO DAILY [facility] Last Admin: 08/30/18 08:42 Dose: 12.5 mg Insulin Glargine (Lantus) 50 unit SUBCUT DAILY [facility] Last Admin: 08/30/18 08:45 Dose: 50 units Insulin Human Lispro (Humalog) 0 unit SUBCUT QIDACANDBED [facility]; Protocol Last Admin: 08/31/18 06:15 Dose: Not Given Levothyroxine Sodium (Synthroid) 50 mcg PO DAILY@0700 [facility] Last Admin: 08/31/18 06:22 Dose: 50 mcg Losartan Potassium (Cozaar) 50 mg PO DAILY [facility] Metoprolol Succinate (Toprol Xl) 100 mg PO DAILY [facility] Last Admin: 08/30/18 08:52 Dose: 100 mg Morphine Sulfate (Morphine) 2 mg IVPUSH Q2H PRN PRN Reason: Breakthrough Pain Naloxone HCl (Narcan) 0.1 mg IVPUSH Q5M PRN PRN Reason: Oversedation Ondansetron HCl (Zofran) 4 mg IVPUSH Q6H PRN PRN Reason: Nausea/Vomiting Tiotropium Respimat (2.5 Mcg Ptom) 0 each INH DAILY [facility] Last Admin: 08/30/18 08:26 Dose: 2 each Polyethylene Glycol (Miralax) 17 gm PO DAILY PRN PRN Reason: constipation Senna (Senna) 8.6 mg PO BID PRN PRN Reason: Constipation Triamcinolone Acetonide (Triamcinolone Acetonide 0.1% Crm) 0 gm TOP BID PRN PRN Reason: SKIN COMPLICATIONS Warfarin Sodium (Coumadin) 2.5 mg PO MoWeFr@1800 [facility] Last Admin: 08/29/18 17:35 Dose: 2.5 mg Warfarin Sodium (Coumadin) 5 mg PO SuTuThSa@1800 LUCILA Last Admin: 08/30/18 17:26 Dose: 5 mg Warfarin Sodium (Pharmacy To Dose - Warfarin) 0 dose .XX ASDIRECTED PRN PRN Reason: RX TO DOSE WARFARIN Discontinued Medications Bupivacaine HCl (Marcaine 0.25%) Confirm Administered Dose 30 ml .ROUTE .STK- MED ONE Stop: 08/29/18 06:32 Last Admin: 08/29/18 08:41 Dose: 4 ml Bupivacaine HCl (Sensorcaine-Mpf 0.75%) Confirm Administered Dose 30 ml .ROUTE .STK-MED ONE Stop: 08/29/18 07:29 Cefazolin Sodium (Ancef) Confirm Administered Dose 2 gm .ROUTE .STK-MED ONE Stop: 08/29/18 06:32 Last Admin: 08/29/18 08:10 Dose: 2 gm Cefazolin Sodium (Ancef) Confirm Administered Dose 1 gm .ROUTE .STK-MED ONE Stop: 08/29/18 06:43 Cefazolin Sodium (Ancef) Confirm Administered Dose 2 gm .ROUTE .STK-MED ONE Stop: 08/29/18 06:50 Cholecalciferol (Vitamin D3) 1 unit PO DAILY [facility] Morphine Sulfate 8 mg/Epinephrine HCl 0.3 mg/Cefuroxime Sodium 750 mg/Sodium Chloride 28.9 ml 0 mg .XX ONETIME ONE Stop: 08/29/18 07:41 Last Admin: 08/29/18 08:15 Dose: 758.3 mg Epinephrine HCl (Adrenalin) Confirm Administered Dose 1 mg .ROUTE .STK-MED ONE Stop: 08/29/18 09:07 Famotidine (Pepcid) 20 mg PO Q12H [facility] Famotidine (Pepcid) 20 mg IVPUSH ONETIME ONE Stop: 08/29/18 06:46 Last Admin: 08/29/18 13:32 Dose: Not Given Fentanyl (Sublimaze) Confirm Administered Dose 100 mcg .ROUTE .STK-MED ONE Stop: 08/29/18 06:50 Lactated Ringer's (Ringers, Lactated) 1,000 mls @ 125 mls/hr IV ASDIRECTED [facility] Stop: 08/29/18 23:00 Last Admin: 08/29/18 06:20 Dose: 125 mls/hr Cefazolin Sodium/Dextrose 2 gm (/ Premix) 50 mls @ 100 mls/hr IV Q8H [facility] Stop: 08/30/18 07:29 Last Admin: 08/30/18 06:50 Dose: 100 mls/hr Lidocaine HCl (Xylocaine-Mpf 1%) Confirm Administered Dose 5 mls @ as directed .ROUTE .STK-MED ONE Stop: 08/29/18 07:29 Sodium Chloride (Normal Saline) 1,000 mls @ 75 mls/hr IV ASDIRECTED [facility] Stop: 08/30/18 22:04 Last Admin: 08/30/18 10:02 Dose: 75 mls/hr Iodine (Iodine 2% Mild Tincture) Confirm Administered Dose 30 ml .ROUTE .STK- MED ONE Stop: 08/29/18 06:32 Last Admin: 08/29/18 08:07 Dose: 18 ml Lidocaine/Sodium Bicarbonate (Buffered Lidocaine 1% In Ns 8.4%) 0.25 ml IDERM ONETIME PRN PRN Reason: Prior to IV Start Stop: 08/29/18 23:00 Last Admin: 08/29/18 06:20 Dose: 0.25 ml Metoprolol Tartrate (Lopressor) 5 mg IVPUSH Q6H PRN PRN Reason: Tachycardia Last Admin: 08/30/18 09:59 Dose: 5 mg Ondansetron HCl (Zofran) Confirm Administered Dose 4 mg .ROUTE .STK-MED ONE Stop: 08/29/18 06:49 Phenylephrine HCl (Phenylephrine In Ns 100 Mcg/Ml) Confirm Administered Dose 1 mg .ROUTE .STK-MED ONE Stop: 08/29/18 07:53 Propofol (Diprivan 20 Ml) Confirm Administered Dose 200 mg .ROUTE .STK-MED ONE Stop: 08/29/18 06:49 Ropivacaine (Naropin 0.5%) Confirm Administered Dose 30 ml .ROUTE .STK-MED ONE Stop: 08/29/18 09:07 Sodium Chloride (Saline Flush) 10 ml FLUSH ASDIRECTED PRN PRN Reason: Keep Vein Open Stop: 08/29/18 23:00 Tranexamic Acid (Cyklokapron) Confirm Administered Dose 1,000 mg .ROUTE .STK- MED ONE Stop: 08/29/18 06:32 Last Admin: 08/29/18 08:22 Dose: 1,000 mg Triamcinolone Acetonide (Kenalog-40) Confirm Administered Dose 80 mg .ROUTE .STK -MED ONE Stop: 08/29/18 06:32 Last Admin: 08/29/18 08:41 Dose: 80 mg Vancomycin HCl (Vancomycin) Confirm Administered Dose 1 gm .ROUTE .STK-MED ONE Stop: 08/29/18 06:32 Last Admin: 08/29/18 08:20 Dose: 1 gm - Exam Quality Assessment: DVT Prophylaxis. No: Supplemental Oxygen, Urine Catheter General: Alert, Oriented, Cooperative, No Acute Distress HEENT: Pupils Equal, Pupils Reactive, EOMI, Mucous Membr. Moist/[place] Neck: Supple, Trachea Midline, No JVD Lungs: Clear to Auscultation, Normal Respiratory Effort Cardiovascular: Regular Rate, Regular Rhythm GI/Abdominal Exam: Normal Bowel Sounds, Soft, Non-Tender, No Distention, No Abnormal Bruit (Male) Exam: Deferred Back Exam: Normal Inspection, Full Range of Motion Extremities: No Pedal Edema, Normal Capillary Refill, Leg Pain, Limited Range of Motion, Other Peripheral Pulses: 2+: Radial (L), Radial (R), Dorsalis Pedis (L), Dorsalis Pedis (R) Skin: Warm, Dry, Intact Wound/Incisions: Dressing Dry and Intact, No Drainage Neurological: No New Focal Deficit Psy/Mental Status: Alert, Normal Affect, Normal Mood Consult PN Assessment/Plan POD#: 2 (1) S/P total knee arthroplasty SNOMED Code(s): 1872095212231, 842245543, 3461477114751 Code(s): Z96.659 - PRESENCE OF UNSPECIFIED ARTIFICIAL KNEE JOINT Priority: High Current Visit: Yes Qualifiers: Laterality: right Qualified Code(s): Z96.651 - Presence of right artificial knee joint (2) Osteoarthritis SNOMED Code(s): 906261777 Code(s): M19.90 - UNSPECIFIED OSTEOARTHRITIS, UNSPECIFIED SITE Priority: High Current Visit: Yes Qualifiers: Osteoarthritis location: knee Osteoarthritis type: primary Laterality: bilateral Qualified Code(s): M17.0 - Bilateral primary osteoarthritis of knee (3) CHF (congestive heart failure) SNOMED Code(s): 83808950 Code(s): I50.9 - HEART FAILURE, UNSPECIFIED Priority: Medium Current Visit: No Qualifiers: Heart failure type: unspecified Heart failure chronicity: unspecified Qualified Code(s): I50.9 - Heart failure, unspecified (4) HLD (hyperlipidemia) SNOMED Code(s): 47375383 Code(s): E78.5 - HYPERLIPIDEMIA, UNSPECIFIED Priority: Low Current Visit : No Qualifiers: Hyperlipidemia type: unspecified Qualified Code(s): E78.5 - Hyperlipidemia , unspecified (5) Chronic lower back pain SNOMED Code(s): 086634084 Code(s): M54.5 - LOW BACK PAIN; G89.29 - OTHER CHRONIC PAIN Priority: Low Current Visit: No Qualifiers: Back pain laterality: unspecified Sciatica presence: unspecified whether sciatica present Qualified Code(s): M54.5 - Low back pain; G89.29 - Other chronic pain (6) COPD (chronic obstructive pulmonary disease) SNOMED Code(s): 08095835 Code(s): J44.9 - CHRONIC OBSTRUCTIVE PULMONARY DISEASE, UNSPECIFIED Priority: Medium Current Visit: No Qualifiers: COPD type: unspecified COPD Qualified Code(s): J44.9 - Chronic obstructive pulmonary disease, unspecified (7) History of AAA (abdominal aortic aneurysm) repair SNOMED Code(s): 820495023 Code(s): Z98.890 - OTHER SPECIFIED POSTPROCEDURAL STATES Priority: Medium Current Visit: No (8) Hypothyroidism SNOMED Code(s): 99699832 Code(s): E03.9 - HYPOTHYROIDISM, UNSPECIFIED Priority: Medium Current Visit: No Qualifiers: Hypothyroidism type: unspecified Qualified Code(s): E03.9 - Hypothyroidism , unspecified (9) Type II diabetes mellitus SNOMED Code(s): 77588859 Code(s): E11.9 - TYPE 2 DIABETES MELLITUS WITHOUT COMPLICATIONS Priority: Medium Current Visit: No Qualifiers: Diabetes mellitus correction insulin use: 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 Diabetes mellitus complication status: with unspecified complications Qualified Code(s): E11.8 - Type 2 diabetes mellitus with unspecified complications (10) A-fib SNOMED Code(s): 25499926 Code(s): I48.91 - UNSPECIFIED ATRIAL FIBRILLATION Priority: Medium Current Visit: No Qualifiers: Atrial fibrillation type: unspecified Qualified Code(s): I48.91 - Unspecified atrial fibrillation (11) CKD (chronic kidney disease) SNOMED Code(s): 637568802 Code(s): N18.9 - CHRONIC KIDNEY DISEASE, UNSPECIFIED Priority: Medium Current Visit: No Qualifiers: Chronic kidney disease stage: stage 3 (moderate) Qualified Code(s): N18.3 - Chronic kidney disease, stage 3 (moderate) (12) CAD (coronary artery disease) SNOMED Code(s): 61912123 Code(s): I25.10 - ATHSCL HEART DISEASE OF [place] CORONARY ARTERY W/O ANG PCTRS Priority: Medium Current Visit: No Qualifiers: Coronary Disease-Associated Artery/Lesion type: unspecified vessel or lesion type [place] vs. transplanted heart: [place] heart Associated angina: angina presence unspecified Qualified Code(s): I25.10 - Atherosclerotic heart disease of [place] coronary artery without angina pectoris (13) History of four vessel coronary artery bypass graft SNOMED Code(s): 726336551, 687211370 Code(s): Z95.1 - PRESENCE OF AORTOCORONARY BYPASS GRAFT Priority: Medium Current Visit: No (14) Subtherapeutic international normalized ratio (INR) SNOMED Code(s): 396077321, 500304459 Code(s): R79.1 - ABNORMAL COAGULATION PROFILE Priority: High Current Visit: Yes Problem List Initiated/Reviewed/Updated: Yes My Orders Last 24 Hours: My Active Orders 08/30/18 10:40 Consult to Superintendent Meter Tests [Consult to Diabetic Nurse Specialist] [CONS] Routine 08/31/18 05:38 CBC WITH AUTO DIFF [HEME] AM 09/01/18 05:11 BASIC METABOLIC PANEL,BMP [CHEM] AM CBC WITH AUTO DIFF [HEME] AM MAGNESIUM [CHEM] AM 09/02/18 05:11 BASIC METABOLIC PANEL,BMP [CHEM] AM CBC WITH AUTO DIFF [HEME] AM MAGNESIUM [CHEM] AM 09/03/18 05:11 BASIC METABOLIC PANEL,BMP [CHEM] AM CBC WITH AUTO DIFF [HEME] AM MAGNESIUM [CHEM] AM Plan: I/P: Acute: S/P right total knee arthroplasty - post-operative day 2 -DVT prophylaxis and pain management per primary care team -PT/OT -IS/RT -Monitor oxygen saturation -Titrate oxygen as needed -Vital signs stable -Monitor labs -Pre-operative Hgb was 16.6; Now 15.8 -->14.8 -Pre-operative GFR was 34; Now 32-->39 -Pre-operative Creatinine was 1.9, Now 2.0-->1.7 -Pre-operative BUN was 42; Now 44-->45 -Preoperative A1C was 7.1% -Echo on 05/05/19 showed EF of 59%, A-flutter at 61 BPM Osteoarthritis of bilateral knee -Pain management per primary care team S/P left knee steroid injection -Management per primary team Subtherapeutic INR -INR 1.20-->1.17-->1.19 -Pharmacy to dose warfarin Resolved: S/P Tachycardia (resolved with pain medications) -Sustained A-Flutter in 110's to 120's -Metoprolol given with little effect -Optimize pain control -10mg cardizem IVP Q6Hr PRN -IV fluids started -At baseline respiratory status Chronic: Hard of hearing hematuria CHF hydronephrosis HLD claudication lower back pain COPD AAA with repair in 2005 hypothyroidism type II DM A. fib atrial flutter CAD stage III CAD CABG 4 in 2005 stent placement in 2014 Plan: CM for discharge planning - Plan to [facility] GI prophylaxis Home medications as indicated Other orders as listed above Routine AM labs He is a full code. His PCP is Dr. Gallagher Thank you for allowing us to participate in the care of this patient!!
[2018-08-31] MEDS: Insulin Glarg,Human.Rec.Analog 100 UNIT/ML ML SUBCUT SCH (08:07)
[2018-08-31] MEDS: Metoprolol Succinate 50 MG Tab.ER PO SCH (08:09)
[2018-08-31] MEDS: Diltiazem 240 MG Cap.ER PO SCH (08:10)
[2018-08-31] MEDS: Aspirin 81 MG Tab.EC PO SCH (08:11)
[2018-08-31] MEDS: glipiZIDE 5 MG Tab.ER PO SCH ×2 (08:14→21:26)
[2018-08-31] MEDS: Docusate Sodium 100 MG Cap PO SCH ×2 (08:14→21:26)
[2018-08-31] MEDS: Cholecalciferol (Vitamin D3) 5,000 UNIT Tab PO SCH (08:15)
[2018-08-31] MEDS: [UNRECOGNIZED DRUG - OTHER] INH SCH (09:09)
[2018-08-31] MEDS: Losartan 25 MG Tab PO SCH (09:50)
[2018-08-31] MEDS: Enoxaparin 120 MG/0.8 ML Syringe SUBCUT SCH ×2 (09:50→21:23)
[2018-08-31] MEDS: Furosemide 20 MG Tab PO SCH (09:50)
[2018-08-31] MEDS ORDERED: Warfarin 5 MG Tab PO SCH (18:00)
[2018-08-31] MEDS: Benzocaine/Cetylpyridinium/Menthol Lozenge MUCMEM PRN ×2 (18:38→21:28)
--- NOTE | 2018-08-31 20:29 | PCM.SURGPN ---
- General Info Date of Service: 08/31/18 POD#: 2 Functional Status: Reports: Pain Controlled, Tolerating Diet, Ambulating, Urinating, Incentive Spirometry, Other (The pt states he is doing well. Nursing agrees.) - Patient Data Vitals - Most Recent: Last Vital Signs Temp 97.3 F 08/31/18 15:13 Pulse 61 08/31/18 15:12 Resp 16 08/31/18 15:12 BP 101/56 L 08/31/18 15:12 Pulse Ox 93 L 08/31/18 15:12 Weight - Most Recent: 241 lb 2 oz I&O - Last 24 Hours: Intake & Output 08/31/18 08/31/18 08/31/18 06:59 14:59 22:59 Intake Total 3017 788 [id number] Balance 6425 926 1124 Lab Results Last 24 Hrs: Laboratory Results - last 24 hr 08/30/18 08/31/18 08/31/18 Range/Units 21:06 05:38 05:38 WBC (4.23-9.07) K/mm3 RBC (4.63-6.08) M/mm3 Hgb (13.7-17.5) gm/L Hct (40.1-51.0) % MCV (79.0-92.2) fl MCH (25.7-32.2) pg MCHC (32.2-35.5) g/dl RDW Std Deviation (35.1-43.9) fL Plt Count (163-337) K/mm3 MPV (9.4-12.3) fl Neut % (Auto) (34.0-67.9) % Lymph % (Auto) (21.8-53.1) % [place] % (Auto) (5.3-12.2) % Eos % (Auto) (0.8-7.0) Baso % (Auto) (0.1-1.2) % Neut # (Auto) (1.78-5.38) K/mm3 Lymph # (Auto) (1.32-3.57) K/mm3 [place] # (Auto) (0.30-0.82) K/mm3 Eos # (Auto) (0.04-0.54) K/mm3 Baso # (Auto) (0.01-0.08) K/mm3 Manual Slide Review PT 12.9 H (9.5-12.1) SECONDS INR 1.19 Sodium 134 L (136-145) mEq/L Potassium 4.1 (3.5-5.1) mEq/L Chloride 102 (98-107) mEq/L Carbon Dioxide 21 (21-32) mEq/L Anion Gap 15.1 H (5-15) BUN 45 H (7-18) mg/dL Creatinine 1.7 H (0.7-1.3) mg/dL Est Cr Clr Drug Dosing 34.08 mL/min Estimated GFR (MDRD) 39 (>60) mL/min BUN/Creatinine Ratio 26.5 H (14-18) Glucose 118 H (83-115) mg/dL POC Glucose 182 H (83-110) mg/dL Calcium 8.1 L (8.5-10.1) mg/dL Magnesium 1.8 (1.8-2.4) mg/dl 08/31/18 08/31/18 08/31/18 Range/Units 05:38 06:08 11:11 WBC 13.28 H (4.23-9.07) K/mm3 RBC 5.50 (4.63-6.08) M/mm3 Hgb 14.8 (13.7-17.5) gm/L Hct 46.4 (40.1-51.0) % MCV 84.4 (79.0-92.2) fl MCH 26.9 (25.7-32.2) pg MCHC 31.9 L (32.2-35.5) g/dl RDW Std Deviation 51.3 H (35.1-43.9) fL Plt Count 187 (163-337) K/mm3 MPV 9.0 L (9.4-12.3) fl Neut % (Auto) 78.5 H (34.0-67.9) % Lymph % (Auto) 9.6 L (21.8-53.1) % [place] % (Auto) 10.8 (5.3-12.2) % Eos % (Auto) 0.8 (0.8-7.0) Baso % (Auto) 0.1 (0.1-1.2) % Neut # (Auto) 10.42 H (1.78-5.38) K/mm3 Lymph # (Auto) 1.28 L (1.32-3.57) K/mm3 [place] # (Auto) 1.44 H (0.30-0.82) K/mm3 Eos # (Auto) 0.10 (0.04-0.54) K/mm3 Baso # (Auto) 0.01 (0.01-0.08) K/mm3 Manual Slide Review Normal smear PT (9.5-12.1) SECONDS INR Sodium (136-145) mEq/L Potassium (3.5-5.1) mEq/L Chloride (98-107) mEq/L Carbon Dioxide (21-32) mEq/L Anion Gap (5-15) BUN (7-18) mg/dL Creatinine (0.7-1.3) mg/dL Est Cr Clr Drug Dosing mL/min Estimated GFR (MDRD) (>60) mL/min BUN/Creatinine Ratio (14-18) Glucose (83-115) mg/dL POC Glucose 134 H 131 H (83-110) mg/dL Calcium (8.5-10.1) mg/dL Magnesium (1.8-2.4) mg/dl 08/31/18 Range/Units 18:12 WBC (4.23-9.07) K/mm3 RBC (4.63-6.08) M/mm3 Hgb (13.7-17.5) gm/L Hct (40.1-51.0) % MCV (79.0-92.2) fl MCH (25.7-32.2) pg MCHC (32.2-35.5) g/dl RDW Std Deviation (35.1-43.9) fL Plt Count (163-337) K/mm3 MPV (9.4-12.3) fl Neut % (Auto) (34.0-67.9) % Lymph % (Auto) (21.8-53.1) % [place] % (Auto) (5.3-12.2) % Eos % (Auto) (0.8-7.0) Baso % (Auto) (0.1-1.2) % Neut # (Auto) (1.78-5.38) K/mm3 Lymph # (Auto) (1.32-3.57) K/mm3 [place] # (Auto) (0.30-0.82) K/mm3 Eos # (Auto) (0.04-0.54) K/mm3 Baso # (Auto) (0.01-0.08) K/mm3 Manual Slide Review PT (9.5-12.1) SECONDS INR Sodium (136-145) mEq/L Potassium (3.5-5.1) mEq/L Chloride (98-107) mEq/L Carbon Dioxide (21-32) mEq/L Anion Gap (5-15) BUN (7-18) mg/dL Creatinine (0.7-1.3) mg/dL Est Cr Clr Drug Dosing mL/min Estimated GFR (MDRD) (>60) mL/min BUN/Creatinine Ratio (14-18) Glucose (83-115) mg/dL POC Glucose 130 H (83-110) mg/dL Calcium (8.5-10.1) mg/dL Magnesium (1.8-2.4) mg/dl Med Orders - Current: Current Medications Hydrocodone Bitart/Acetaminophen ([place] 325-5 Mg) 1 - 2 tab PO Q4H PRN PRN Reason: Pain Last Admin: 08/31/18 18:43 Dose: 2 tab Aspirin (Halfprin) 81 mg PO DAILY [facility] Last Admin: 08/31/18 08:11 Dose: 81 mg Benzocaine/Menthol (Cepacol Sore Throat) 1 lozenge MUCMEM Q2HR PRN PRN Reason: Sore Throat Last Admin: 08/31/18 18:38 Dose: 1 lozenge Bisacodyl (Dulcolax) 5 mg PO DAILY PRN PRN Reason: Constipation Cholecalciferol (Vitamin D3) 5,000 unit PO DAILY [facility] Last Admin: 08/31/18 08:15 Dose: 5,000 unit Diltiazem HCl (Dilacor Xr) 240 mg PO DAILY [facility] Last Admin: 08/31/18 08:10 Dose: 240 mg Diltiazem HCl (Cardizem) 10 mg IVPUSH Q4H PRN PRN Reason: FOR HR > 110 Docusate Sodium (Colace) 100 mg PO BID [facility] Last Admin: 08/31/18 08:14 Dose: 100 mg Doxazosin Mesylate (Cardura) 4 mg PO BEDTIME [facility] Last Admin: 08/30/18 21:10 Dose: 4 mg Enoxaparin Sodium (Lovenox) 110 mg SUBCUT Q12H [facility] Last Admin: 08/31/18 09:50 Dose: 110 mg Furosemide (Lasix) 20 mg PO DAILY [facility] Last Admin: 08/31/18 09:50 Dose: Not Given Glipizide (Glucotrol Xl) 10 mg PO BID [facility] Last Admin: 08/31/18 08:14 Dose: 10 mg Hydrochlorothiazide (Hydrochlorothiazide) 12.5 mg PO DAILY [facility] Last Admin: 08/30/18 08:42 Dose: 12.5 mg Insulin Glargine (Lantus) 50 unit SUBCUT DAILY [facility] Last Admin: 08/31/18 08:07 Dose: 50 units Insulin Human Lispro (Humalog) 0 unit SUBCUT QIDACANDBED [facility]; Protocol Last Admin: 08/31/18 18:36 Dose: Not Given Levothyroxine Sodium (Synthroid) 50 mcg PO DAILY@0700 [facility] Last Admin: 08/31/18 06:22 Dose: 50 mcg Losartan Potassium (Cozaar) 50 mg PO DAILY [facility] Last Admin: 08/31/18 09:50 Dose: Not Given Metoprolol Succinate (Toprol Xl) 100 mg PO DAILY [facility] Last Admin: 08/31/18 08:09 Dose: 100 mg Morphine Sulfate (Morphine) 2 mg IVPUSH Q2H PRN PRN Reason: Breakthrough Pain Naloxone HCl (Narcan) 0.1 mg IVPUSH Q5M PRN PRN Reason: Oversedation Ondansetron HCl (Zofran) 4 mg IVPUSH Q6H PRN PRN Reason: Nausea/Vomiting Tiotropium Respimat (2.5 Mcg Ptom) 0 each INH DAILY [facility] Last Admin: 08/31/18 09:09 Dose: 2 each Polyethylene Glycol (Miralax) 17 gm PO DAILY PRN PRN Reason: constipation Senna (Senna) 8.6 mg PO BID PRN PRN Reason: Constipation Last Admin: 08/31/18 18:44 Dose: 8.6 mg Triamcinolone Acetonide (Triamcinolone Acetonide 0.1% Crm) 0 gm TOP BID PRN PRN Reason: SKIN COMPLICATIONS Warfarin Sodium (Pharmacy To Dose - Warfarin) 0 dose .XX ASDIRECTED PRN PRN Reason: RX TO DOSE WARFARIN Discontinued Medications Bupivacaine HCl (Marcaine 0.25%) Confirm Administered Dose 30 ml .ROUTE .STK- MED ONE Stop: 08/29/18 06:32 Last Admin: 08/29/18 08:41 Dose: 4 ml Bupivacaine HCl (Sensorcaine-Mpf 0.75%) Confirm Administered Dose 30 ml .ROUTE .STK-MED ONE Stop: 08/29/18 07:29 Cefazolin Sodium (Ancef) Confirm Administered Dose 2 gm .ROUTE .STK-MED ONE Stop: 08/29/18 06:32 Last Admin: 08/29/18 08:10 Dose: 2 gm Cefazolin Sodium (Ancef) Confirm Administered Dose 1 gm .ROUTE .STK-MED ONE Stop: 08/29/18 06:43 Cefazolin Sodium (Ancef) Confirm Administered Dose 2 gm .ROUTE .STK-MED ONE Stop: 08/29/18 06:50 Cholecalciferol (Vitamin D3) 1 unit PO DAILY [facility] Morphine Sulfate 8 mg/Epinephrine HCl 0.3 mg/Cefuroxime Sodium 750 mg/Sodium Chloride 28.9 ml 0 mg .XX ONETIME ONE Stop: 08/29/18 07:41 Last Admin: 08/29/18 08:15 Dose: 758.3 mg Epinephrine HCl (Adrenalin) Confirm Administered Dose 1 mg .ROUTE .STK-MED ONE Stop: 08/29/18 09:07 Famotidine (Pepcid) 20 mg PO Q12H [facility] Famotidine (Pepcid) 20 mg IVPUSH ONETIME ONE Stop: 08/29/18 06:46 Last Admin: 08/29/18 13:32 Dose: Not Given Fentanyl (Sublimaze) Confirm Administered Dose 100 mcg .ROUTE .STK-MED ONE Stop: 08/29/18 06:50 Lactated Ringer's (Ringers, Lactated) 1,000 mls @ 125 mls/hr IV ASDIRECTED [facility] Stop: 08/29/18 23:00 Last Admin: 08/29/18 06:20 Dose: 125 mls/hr Cefazolin Sodium/Dextrose 2 gm (/ Premix) 50 mls @ 100 mls/hr IV Q8H [facility] Stop: 08/30/18 07:29 Last Admin: 08/30/18 06:50 Dose: 100 mls/hr Lidocaine HCl (Xylocaine-Mpf 1%) Confirm Administered Dose 5 mls @ as directed .ROUTE .STK-MED ONE Stop: 08/29/18 07:29 Sodium Chloride (Normal Saline) 1,000 mls @ 75 mls/hr IV ASDIRECTED [facility] Stop: 08/30/18 22:04 Last Admin: 08/30/18 10:02 Dose: 75 mls/hr Iodine (Iodine 2% Mild Tincture) Confirm Administered Dose 30 ml .ROUTE .STK- MED ONE Stop: 08/29/18 06:32 Last Admin: 08/29/18 08:07 Dose: 18 ml Lidocaine/Sodium Bicarbonate (Buffered Lidocaine 1% In Ns 8.4%) 0.25 ml IDERM ONETIME PRN PRN Reason: Prior to IV Start Stop: 08/29/18 23:00 Last Admin: 08/29/18 06:20 Dose: 0.25 ml Metoprolol Tartrate (Lopressor) 5 mg IVPUSH Q6H PRN PRN Reason: Tachycardia Last Admin: 08/30/18 09:59 Dose: 5 mg Ondansetron HCl (Zofran) Confirm Administered Dose 4 mg .ROUTE .STK-MED ONE Stop: 08/29/18 06:49 Phenylephrine HCl (Phenylephrine In Ns 100 Mcg/Ml) Confirm Administered Dose 1 mg .ROUTE .STK-MED ONE Stop: 08/29/18 07:53 Propofol (Diprivan 20 Ml) Confirm Administered Dose 200 mg .ROUTE .STK-MED ONE Stop: 08/29/18 06:49 Ropivacaine (Naropin 0.5%) Confirm Administered Dose 30 ml .ROUTE .STK-MED ONE Stop: 08/29/18 09:07 Sodium Chloride (Saline Flush) 10 ml FLUSH ASDIRECTED PRN PRN Reason: Keep Vein Open Stop: 08/29/18 23:00 Tranexamic Acid (Cyklokapron) Confirm Administered Dose 1,000 mg .ROUTE .STK- MED ONE Stop: 08/29/18 06:32 Last Admin: 08/29/18 08:22 Dose: 1,000 mg Triamcinolone Acetonide (Kenalog-40) Confirm Administered Dose 80 mg .ROUTE .STK -MED ONE Stop: 08/29/18 06:32 Last Admin: 08/29/18 08:41 Dose: 80 mg Vancomycin HCl (Vancomycin) Confirm Administered Dose 1 gm .ROUTE .STK-MED ONE Stop: 08/29/18 06:32 Last Admin: 08/29/18 08:20 Dose: 1 gm Warfarin Sodium (Coumadin) 2.5 mg PO [id number] [facility] Last Admin: 08/29/18 17:35 Dose: 2.5 mg Warfarin Sodium (Coumadin) 5 mg PO SuTuThSa@1800 [facility] Last Admin: 08/30/18 17:26 Dose: 5 mg Warfarin Sodium (Coumadin) 5 mg PO QPM [facility] Stop: 08/31/18 18:01 Last Admin: 08/31/18 18:38 Dose: 5 mg Warfarin Sodium (Pharmacy To Dose - Warfarin) 1 dose .XX ASDIRECTED [facility] - Exam Wound/Incisions: Dressing Dry and Intact General: Alert, Cooperative, No Acute Distress Lungs: Normal Respiratory Effort Extremities: Other (NVS intact for BLE. Steve's negative for RLE. Mod effusion right knee. ) - Problem List Review Problem List Initiated/Reviewed/Updated: Yes - My Orders Last 24 Hours: Active Orders 24 hr Category Date Time Status BASIC METABOLIC PANEL,BMP [CHEM] AM Lab 09/01/18 05:11 Ordered BASIC METABOLIC PANEL,BMP [CHEM] AM Lab 09/02/18 05:11 Ordered BASIC METABOLIC PANEL,BMP [CHEM] AM Lab 09/03/18 05:11 Ordered CBC WITH AUTO DIFF [HEME] AM Lab 09/01/18 05:11 Ordered CBC WITH AUTO DIFF [HEME] AM Lab 09/02/18 05:11 Ordered CBC WITH AUTO DIFF [HEME] AM Lab 09/03/18 05:11 Ordered INR,PT,PROTHROMBIN TIME [COAG] AM Lab 09/01/18 05:11 Ordered INR,PT,PROTHROMBIN TIME [COAG] AM Lab 09/02/18 05:11 Ordered INR,PT,PROTHROMBIN TIME [COAG] AM Lab 09/03/18 05:11 Ordered MAGNESIUM [CHEM] AM Lab 09/01/18 05:11 Ordered MAGNESIUM [CHEM] AM Lab 09/02/18 05:11 Ordered MAGNESIUM [CHEM] AM Lab 09/03/18 05:11 Ordered Benzocaine/Cetylpyrd/Menthol [Cepacol Sore Throat] Med 08/31/18 17:45 Active 1 lozenge MUCMEM Q2HR PRN Enoxaparin [Lovenox] Med 08/31/18 09:15 Active 110 mg SUBCUT Q12H Medication Orders Hydrocodone Bitart/Acetaminophen ([place] 325-5 Mg) 1 - 2 tab PO Q4H PRN PRN Reason: Pain Last Admin: 08/31/18 18:43 Dose: 2 tab Admin: 08/31/18 12:02 Dose: 2 tab Admin: 08/31/18 04:56 Dose: 2 tab Admin: 08/30/18 21:10 Dose: 2 tab Admin: 08/30/18 17:25 Dose: 2 tab Admin: 08/30/18 12:00 Dose: 2 tab Admin: 08/30/18 03:10 Dose: 2 tab Admin: 08/29/18 15:25 Dose: 1 tab Aspirin (Halfprin) 81 mg PO DAILY [facility] Last Admin: 08/31/18 08:11 Dose: 81 mg Admin: 08/30/18 08:43 Dose: 81 mg Benzocaine/Menthol (Cepacol Sore Throat) 1 lozenge MUCMEM Q2HR PRN PRN Reason: Sore Throat Last Admin: 08/31/18 18:38 Dose: 1 lozenge Bisacodyl (Dulcolax) 5 mg PO DAILY PRN PRN Reason: Constipation Cholecalciferol (Vitamin D3) 5,000 unit PO DAILY [facility] Last Admin: 08/31/18 08:15 Dose: 5,000 unit Admin: 08/30/18 08:58 Dose: 5,000 unit Diltiazem HCl (Dilacor Xr) 240 mg PO DAILY [facility] Last Admin: 08/31/18 08:10 Dose: 240 mg Admin: 08/30/18 08:41 Dose: 240 mg Diltiazem HCl (Cardizem) 10 mg IVPUSH Q4H PRN PRN Reason: FOR HR > 110 Docusate Sodium (Colace) 100 mg PO BID [facility] Last Admin: 08/31/18 08:14 Dose: 100 mg Admin: 08/30/18 21:09 Dose: 100 mg Admin: 08/30/18 08:43 Dose: 100 mg Admin: 08/29/18 21:36 Dose: 100 mg Doxazosin Mesylate (Cardura) 4 mg PO BEDTIME [facility] Last Admin: 08/30/18 21:10 Dose: 4 mg Admin: 08/29/18 21:38 Dose: 4 mg Enoxaparin Sodium (Lovenox) 110 mg SUBCUT Q12H [facility] Last Admin: 08/31/18 09:50 Dose: 110 mg Furosemide (Lasix) 20 mg PO DAILY [facility] Last Admin: 08/31/18 09:50 Dose: Glipizide (Glucotrol Xl) 10 mg PO BID [facility] Last Admin: 08/31/18 08:14 Dose: 10 mg Admin: 08/30/18 21:10 Dose: 10 mg Admin: 08/30/18 08:44 Dose: 10 mg Admin: 08/29/18 21:36 Dose: 10 mg Hydrochlorothiazide (Hydrochlorothiazide) 12.5 mg PO DAILY [facility] Last Admin: 08/30/18 08:42 Dose: 12.5 mg Insulin Glargine (Lantus) 50 unit SUBCUT DAILY [facility] Last Admin: 08/31/18 08:07 Dose: 50 units Admin: 08/30/18 08:45 Dose: 50 units Insulin Human Lispro (Humalog) 0 unit SUBCUT QIDACANDBED [facility]; Protocol Last Admin: 08/31/18 18:36 Dose: Not Given Admin: 08/31/18 11:29 Dose: Not Given Admin: 08/31/18 06:15 Dose: Not Given Admin: 08/30/18 21:11 Dose: 1 units Admin: 08/30/18 17:28 Dose: 1 units Admin: 08/30/18 12:05 Dose: 2 units Admin: 08/30/18 08:48 Dose: 1 units Admin: 08/29/18 21:38 Dose: 2 units Admin: 08/29/18 17:36 Dose: 2 units Admin: 08/29/18 13:30 Dose: Levothyroxine Sodium (Synthroid) 50 mcg PO DAILY@0700 [facility] Last Admin: 08/31/18 06:22 Dose: 50 mcg Admin: 08/30/18 06:50 Dose: 50 mcg Losartan Potassium (Cozaar) 50 mg PO DAILY [facility] Last Admin: 08/31/18 09:50 Dose: Metoprolol Succinate (Toprol Xl) 100 mg PO DAILY [facility] Last Admin: 08/31/18 08:09 Dose: 100 mg Admin: 08/30/18 08:52 Dose: 100 mg Morphine Sulfate (Morphine) 2 mg IVPUSH Q2H PRN PRN Reason: Breakthrough Pain Naloxone HCl (Narcan) 0.1 mg IVPUSH Q5M PRN PRN Reason: Oversedation Ondansetron HCl (Zofran) 4 mg IVPUSH Q6H PRN PRN Reason: Nausea/Vomiting Tiotropium Respimat (2.5 Mcg Ptom) 0 each INH DAILY [facility] Last Admin: 08/31/18 09:09 Dose: 2 each Admin: 08/30/18 08:26 Dose: 2 each Polyethylene Glycol (Miralax) 17 gm PO DAILY PRN PRN Reason: constipation Senna (Senna) 8.6 mg PO BID PRN PRN Reason: Constipation Last Admin: 08/31/18 18:44 Dose: 8.6 mg Triamcinolone Acetonide (Triamcinolone Acetonide 0.1% Crm) 0 gm TOP BID PRN PRN Reason: SKIN COMPLICATIONS Warfarin Sodium (Pharmacy To Dose - Warfarin) 0 dose .XX ASDIRECTED PRN PRN Reason: RX TO DOSE WARFARIN - Assessment Assessment (Free Text/Narrative):: POD#2 - right TKA - Plan Plan (Free Text/Narrative):: 1. Discharge to [facility] tomorrow. 2. Lovenox until INR therapeutic. Coumadin dose per Pharmacy. 3. Continue with therapies. 4. The pt states his pain is controlled. 5. Further orders per Hospitalist service. The pt's case was discussed with Dr. Eldridge.
[2018-08-31] MEDS: Doxazosin 4 MG Tab PO SCH (21:27)
[2018-09-01] MEDS: Acetaminophen/HYDROcodone 325-5 MG Tab PO PRN ×4 (06:04→21:52)
[2018-09-01] MEDS: Levothyroxine 50 MCG Tab PO SCH (06:04)
[2018-09-01] MEDS: Insulin Lispro 100 Units/ML 3 ML Vial SUBCUT SCH ×4 (06:06→22:25)
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
--- NOTE | 2018-09-01 07:42 | PCM.SURGPN ---
- General Info Date of Service: 09/01/18 POD#: 3 Functional Status: Reports: Pain Controlled, Tolerating Diet, Ambulating, Urinating, Incentive Spirometry, Other (Pt states he has a good appetite. He denies pain at left knee. States pain at right knee is "not bad".) - Patient Data Vitals - Most Recent: Last Vital Signs Temp 98.4 F 08/31/18 21:28 Pulse 60 08/31/18 21:28 Resp 18 08/31/18 21:28 BP 128/72 08/31/18 21:28 Pulse Ox 94 L 08/31/18 21:28 Weight - Most Recent: 241 lb 8 oz I&O - Last 24 Hours: Intake & Output 08/31/18 09/01/18 09/01/18 22:59 06:59 14:59 Intake Total 1180 400 Balance 1180 400 Lab Results Last 24 Hrs: Laboratory Results - last 24 hr 08/31/18 08/31/18 08/31/18 Range/Units 05:38 11:11 18:12 WBC (4.23-9.07) K/mm3 RBC (4.63-6.08) M/mm3 Hgb (13.7-17.5) gm/L Hct (40.1-51.0) % MCV (79.0-92.2) fl MCH (25.7-32.2) pg MCHC (32.2-35.5) g/dl RDW Std Deviation (35.1-43.9) fL Plt Count (163-337) K/mm3 MPV (9.4-12.3) fl Neut % (Auto) (34.0-67.9) % Lymph % (Auto) (21.8-53.1) % Carroll % (Auto) (5.3-12.2) % Eos % (Auto) (0.8-7.0) Baso % (Auto) (0.1-1.2) % Neut # (Auto) (1.78-5.38) K/mm3 Lymph # (Auto) (1.32-3.57) K/mm3 [place] # (Auto) (0.30-0.82) K/mm3 Eos # (Auto) (0.04-0.54) K/mm3 Baso # (Auto) (0.01-0.08) K/mm3 Manual Slide Review Normal smear PT (9.5-12.1) SECONDS INR Sodium (136-145) mEq/L Potassium (3.5-5.1) mEq/L Chloride (98-107) mEq/L Carbon Dioxide (21-32) mEq/L Anion Gap (5-15) BUN (7-18) mg/dL Creatinine (0.7-1.3) mg/dL Est Cr Clr Drug Dosing mL/min Estimated GFR (MDRD) (>60) mL/min BUN/Creatinine Ratio (14-18) Glucose (83-115) mg/dL POC Glucose 131 H 130 H (83-110) mg/dL Calcium (8.5-10.1) mg/dL Magnesium (1.8-2.4) mg/dl 08/31/18 09/01/18 09/01/18 Range/Units 21:21 05:50 05:50 WBC (4.23-9.07) K/mm3 RBC (4.63-6.08) M/mm3 Hgb (13.7-17.5) gm/L Hct (40.1-51.0) % MCV (79.0-92.2) fl MCH (25.7-32.2) pg MCHC (32.2-35.5) g/dl RDW Std Deviation (35.1-43.9) fL Plt Count (163-337) K/mm3 MPV (9.4-12.3) fl Neut % (Auto) (34.0-67.9) % Lymph % (Auto) (21.8-53.1) % Carroll % (Auto) (5.3-12.2) % Eos % (Auto) (0.8-7.0) Baso % (Auto) (0.1-1.2) % Neut # (Auto) (1.78-5.38) K/mm3 Lymph # (Auto) (1.32-3.57) K/mm3 Carroll # (Auto) (0.30-0.82) K/mm3 Eos # (Auto) (0.04-0.54) K/mm3 Baso # (Auto) (0.01-0.08) K/mm3 Manual Slide Review PT 14.1 H (9.5-12.1) SECONDS INR 1.30 Sodium 133 L (136-145) mEq/L Potassium 4.0 (3.5-5.1) mEq/L Chloride 101 (98-107) mEq/L Carbon Dioxide 22 (21-32) mEq/L Anion Gap 14.0 (5-15) BUN 49 H (7-18) mg/dL Creatinine 1.7 H (0.7-1.3) mg/dL Est Cr Clr Drug Dosing 34.08 mL/min Estimated GFR (MDRD) 39 (>60) mL/min BUN/Creatinine Ratio 28.8 H (14-18) Glucose 71 L (83-115) mg/dL POC Glucose 163 H (83-110) mg/dL Calcium 8.3 L (8.5-10.1) mg/dL Magnesium 2.0 (1.8-2.4) mg/dl 09/01/18 09/01/18 Range/Units 05:50 06:02 WBC 11.30 H (4.23-9.07) K/mm3 RBC 5.41 (4.63-6.08) M/mm3 Hgb 14.7 (13.7-17.5) gm/L Hct 45.4 (40.1-51.0) % MCV 83.9 (79.0-92.2) fl MCH 27.2 (25.7-32.2) pg MCHC 32.4 (32.2-35.5) g/dl RDW Std Deviation 51.5 H (35.1-43.9) fL Plt Count 206 (163-337) K/mm3 MPV 8.4 L (9.4-12.3) fl Neut % (Auto) 76.6 H (34.0-67.9) % Lymph % (Auto) 10.9 L (21.8-53.1) % Carroll % (Auto) 10.8 (5.3-12.2) % Eos % (Auto) 1.2 (0.8-7.0) Baso % (Auto) 0.2 (0.1-1.2) % Neut # (Auto) 8.67 H (1.78-5.38) K/mm3 Lymph # (Auto) 1.23 L (1.32-3.57) K/mm3 Carroll # (Auto) 1.22 H (0.30-0.82) K/mm3 Eos # (Auto) 0.13 (0.04-0.54) K/mm3 Baso # (Auto) 0.02 (0.01-0.08) K/mm3 Manual Slide Review PT (9.5-12.1) SECONDS INR Sodium (136-145) mEq/L Potassium (3.5-5.1) mEq/L Chloride (98-107) mEq/L Carbon Dioxide (21-32) mEq/L Anion Gap (5-15) BUN (7-18) mg/dL Creatinine (0.7-1.3) mg/dL Est Cr Clr Drug Dosing mL/min Estimated GFR (MDRD) (>60) mL/min BUN/Creatinine Ratio (14-18) Glucose (83-115) mg/dL POC Glucose 80 L (83-110) mg/dL Calcium (8.5-10.1) mg/dL Magnesium (1.8-2.4) mg/dl Med Orders - Current: Current Medications Hydrocodone Bitart/Acetaminophen ([place] 325-5 Mg) 1 - 2 tab PO Q4H PRN PRN Reason: Pain Last Admin: 09/01/18 06:04 Dose: 2 tab Aspirin (Halfprin) 81 mg PO DAILY [facility] Last Admin: 08/31/18 08:11 Dose: 81 mg Benzocaine/Menthol (Cepacol Sore Throat) 1 lozenge MUCMEM Q2HR PRN PRN Reason: Sore Throat Last Admin: 08/31/18 21:28 Dose: 1 lozenge Bisacodyl (Dulcolax) 5 mg PO DAILY PRN PRN Reason: Constipation Cholecalciferol (Vitamin D3) 5,000 unit PO DAILY [facility] Last Admin: 08/31/18 08:15 Dose: 5,000 unit Diltiazem HCl (Dilacor Xr) 240 mg PO DAILY [facility] Last Admin: 08/31/18 08:10 Dose: 240 mg Diltiazem HCl (Cardizem) 10 mg IVPUSH Q4H PRN PRN Reason: FOR HR > 110 Docusate Sodium (Colace) 100 mg PO BID [facility] Last Admin: 08/31/18 21:26 Dose: 100 mg Doxazosin Mesylate (Cardura) 4 mg PO BEDTIME [facility] Last Admin: 08/31/18 21:27 Dose: 4 mg Enoxaparin Sodium (Lovenox) 110 mg SUBCUT Q12H [facility] Last Admin: 08/31/18 21:23 Dose: 110 mg Furosemide (Lasix) 20 mg PO DAILY [facility] Last Admin: 08/31/18 09:50 Dose: Not Given Glipizide (Glucotrol Xl) 10 mg PO BID [facility] Last Admin: 08/31/18 21:26 Dose: 10 mg Hydrochlorothiazide (Hydrochlorothiazide) 12.5 mg PO DAILY [facility] Last Admin: 08/30/18 08:42 Dose: 12.5 mg Insulin Glargine (Lantus) 50 unit SUBCUT DAILY [facility] Last Admin: 08/31/18 08:07 Dose: 50 units Insulin Human Lispro (Humalog) 0 unit SUBCUT QIDACANDBED [facility]; Protocol Last Admin: 09/01/18 06:06 Dose: Not Given Levothyroxine Sodium (Synthroid) 50 mcg PO DAILY@0700 [facility] Last Admin: 09/01/18 06:04 Dose: 50 mcg Losartan Potassium (Cozaar) 50 mg PO DAILY [facility] Last Admin: 08/31/18 09:50 Dose: Not Given Metoprolol Succinate (Toprol Xl) 100 mg PO DAILY [facility] Last Admin: 08/31/18 08:09 Dose: 100 mg Morphine Sulfate (Morphine) 2 mg IVPUSH Q2H PRN PRN Reason: Breakthrough Pain Naloxone HCl (Narcan) 0.1 mg IVPUSH Q5M PRN PRN Reason: Oversedation Ondansetron HCl (Zofran) 4 mg IVPUSH Q6H PRN PRN Reason: Nausea/Vomiting Tiotropium Respimat (2.5 Mcg Ptom) 0 each INH DAILY [facility] Last Admin: 08/31/18 09:09 Dose: 2 each Polyethylene Glycol (Miralax) 17 gm PO DAILY PRN PRN Reason: constipation Senna (Senna) 8.6 mg PO BID PRN PRN Reason: Constipation Last Admin: 08/31/18 18:44 Dose: 8.6 mg Triamcinolone Acetonide (Triamcinolone Acetonide 0.1% Crm) 0 gm TOP BID PRN PRN Reason: SKIN COMPLICATIONS Warfarin Sodium (Pharmacy To Dose - Warfarin) 0 dose .XX ASDIRECTED PRN PRN Reason: RX TO DOSE WARFARIN Discontinued Medications Bupivacaine HCl (Marcaine 0.25%) Confirm Administered Dose 30 ml .ROUTE .STK- MED ONE Stop: 08/29/18 06:32 Last Admin: 08/29/18 08:41 Dose: 4 ml Bupivacaine HCl (Sensorcaine-Mpf 0.75%) Confirm Administered Dose 30 ml .ROUTE .STK-MED ONE Stop: 08/29/18 07:29 Cefazolin Sodium (Ancef) Confirm Administered Dose 2 gm .ROUTE .STK-MED ONE Stop: 08/29/18 06:32 Last Admin: 08/29/18 08:10 Dose: 2 gm Cefazolin Sodium (Ancef) Confirm Administered Dose 1 gm .ROUTE .STK-MED ONE Stop: 08/29/18 06:43 Cefazolin Sodium (Ancef) Confirm Administered Dose 2 gm .ROUTE .STK-MED ONE Stop: 08/29/18 06:50 Cholecalciferol (Vitamin D3) 1 unit PO DAILY [facility] Morphine Sulfate 8 mg/Epinephrine HCl 0.3 mg/Cefuroxime Sodium 750 mg/Sodium Chloride 28.9 ml 0 mg .XX ONETIME ONE Stop: 08/29/18 07:41 Last Admin: 08/29/18 08:15 Dose: 758.3 mg Epinephrine HCl (Adrenalin) Confirm Administered Dose 1 mg .ROUTE .STK-MED ONE Stop: 08/29/18 09:07 Famotidine (Pepcid) 20 mg PO Q12H [facility] Famotidine (Pepcid) 20 mg IVPUSH ONETIME ONE Stop: 08/29/18 06:46 Last Admin: 08/29/18 13:32 Dose: Not Given Fentanyl (Sublimaze) Confirm Administered Dose 100 mcg .ROUTE .STK-MED ONE Stop: 08/29/18 06:50 Lactated Ringer's (Ringers, Lactated) 1,000 mls @ 125 mls/hr IV ASDIRECTED [facility] Stop: 08/29/18 23:00 Last Admin: 08/29/18 06:20 Dose: 125 mls/hr Cefazolin Sodium/Dextrose 2 gm (/ Premix) 50 mls @ 100 mls/hr IV Q8H [facility] Stop: 08/30/18 07:29 Last Admin: 08/30/18 06:50 Dose: 100 mls/hr Lidocaine HCl (Xylocaine-Mpf 1%) Confirm Administered Dose 5 mls @ as directed .ROUTE .STK-MED ONE Stop: 08/29/18 07:29 Sodium Chloride (Normal Saline) 1,000 mls @ 75 mls/hr IV ASDIRECTED [facility] Stop: 08/30/18 22:04 Last Admin: 08/30/18 10:02 Dose: 75 mls/hr Iodine (Iodine 2% Mild Tincture) Confirm Administered Dose 30 ml .ROUTE .STK- MED ONE Stop: 08/29/18 06:32 Last Admin: 08/29/18 08:07 Dose: 18 ml Lidocaine/Sodium Bicarbonate (Buffered Lidocaine 1% In Ns 8.4%) 0.25 ml IDERM ONETIME PRN PRN Reason: Prior to IV Start Stop: 08/29/18 23:00 Last Admin: 08/29/18 06:20 Dose: 0.25 ml Metoprolol Tartrate (Lopressor) 5 mg IVPUSH Q6H PRN PRN Reason: Tachycardia Last Admin: 08/30/18 09:59 Dose: 5 mg Ondansetron HCl (Zofran) Confirm Administered Dose 4 mg .ROUTE .STK-MED ONE Stop: 08/29/18 06:49 Phenylephrine HCl (Phenylephrine In Ns 100 Mcg/Ml) Confirm Administered Dose 1 mg .ROUTE .STK-MED ONE Stop: 08/29/18 07:53 Propofol (Diprivan 20 Ml) Confirm Administered Dose 200 mg .ROUTE .STK-MED ONE Stop: 08/29/18 06:49 Ropivacaine (Naropin 0.5%) Confirm Administered Dose 30 ml .ROUTE .STK-MED ONE Stop: 08/29/18 09:07 Sodium Chloride (Saline Flush) 10 ml FLUSH ASDIRECTED PRN PRN Reason: Keep Vein Open Stop: 08/29/18 23:00 Tranexamic Acid (Cyklokapron) Confirm Administered Dose 1,000 mg .ROUTE .STK- MED ONE Stop: 08/29/18 06:32 Last Admin: 08/29/18 08:22 Dose: 1,000 mg Triamcinolone Acetonide (Kenalog-40) Confirm Administered Dose 80 mg .ROUTE .STK -MED ONE Stop: 08/29/18 06:32 Last Admin: 08/29/18 08:41 Dose: 80 mg Vancomycin HCl (Vancomycin) Confirm Administered Dose 1 gm .ROUTE .STK-MED ONE Stop: 08/29/18 06:32 Last Admin: 08/29/18 08:20 Dose: 1 gm Warfarin Sodium (Coumadin) 2.5 mg PO [id number] [facility] Last Admin: 08/29/18 17:35 Dose: 2.5 mg Warfarin Sodium (Coumadin) 5 mg PO [email or web address]@1800 [facility] Last Admin: 08/30/18 17:26 Dose: 5 mg Warfarin Sodium (Coumadin) 5 mg PO QPM [facility] Stop: 08/31/18 18:01 Last Admin: 08/31/18 18:38 Dose: 5 mg Warfarin Sodium (Pharmacy To Dose - Warfarin) 1 dose .XX ASDIRECTED [facility] - Exam Wound/Incisions: Dressing Dry and Intact General: Alert, Cooperative, No Acute Distress Lungs: Normal Respiratory Effort Extremities: Other (NVS intact for BLE. Steve's negative. ) - Problem List Review Problem List Initiated/Reviewed/Updated: Yes - My Orders Last 24 Hours: Active Orders 24 hr Category Date Time Status Ready for Discharge [RC] PER UNIT ROUTINE Care 09/01/18 07:12 Active BASIC METABOLIC PANEL,BMP [CHEM] AM Lab 09/02/18 05:11 Ordered BASIC METABOLIC PANEL,BMP [CHEM] AM Lab 09/03/18 05:11 Ordered CBC WITH AUTO DIFF [HEME] AM Lab 09/02/18 05:11 Ordered CBC WITH AUTO DIFF [HEME] AM Lab 09/03/18 05:11 Ordered INR,PT,PROTHROMBIN TIME [COAG] AM Lab 09/02/18 05:11 Ordered INR,PT,PROTHROMBIN TIME [COAG] AM Lab 09/03/18 05:11 Ordered MAGNESIUM [CHEM] AM Lab 09/02/18 05:11 Ordered MAGNESIUM [CHEM] AM Lab 09/03/18 05:11 Ordered Benzocaine/Cetylpyrd/Menthol [Cepacol Sore Throat] Med 08/31/18 17:45 Active 1 lozenge MUCMEM Q2HR PRN Enoxaparin [Lovenox] Med 08/31/18 09:15 Active 110 mg SUBCUT Q12H Medication Orders Hydrocodone Bitart/Acetaminophen ([place] 325-5 Mg) 1 - 2 tab PO Q4H PRN PRN Reason: Pain Last Admin: 09/01/18 06:04 Dose: 2 tab Admin: 08/31/18 23:33 Dose: 2 tab Admin: 08/31/18 18:43 Dose: 2 tab Admin: 08/31/18 12:02 Dose: 2 tab Admin: 08/31/18 04:56 Dose: 2 tab Admin: 08/30/18 21:10 Dose: 2 tab Admin: 08/30/18 17:25 Dose: 2 tab Admin: 08/30/18 12:00 Dose: 2 tab Admin: 08/30/18 03:10 Dose: 2 tab Admin: 08/29/18 15:25 Dose: 1 tab Aspirin (Halfprin) 81 mg PO DAILY [facility] Last Admin: 08/31/18 08:11 Dose: 81 mg Admin: 08/30/18 08:43 Dose: 81 mg Benzocaine/Menthol (Cepacol Sore Throat) 1 lozenge MUCMEM Q2HR PRN PRN Reason: Sore Throat Last Admin: 08/31/18 21:28 Dose: 1 lozenge Admin: 08/31/18 18:38 Dose: 1 lozenge Bisacodyl (Dulcolax) 5 mg PO DAILY PRN PRN Reason: Constipation Cholecalciferol (Vitamin D3) 5,000 unit PO DAILY [facility] Last Admin: 08/31/18 08:15 Dose: 5,000 unit Admin: 08/30/18 08:58 Dose: 5,000 unit Diltiazem HCl (Dilacor Xr) 240 mg PO DAILY [facility] Last Admin: 08/31/18 08:10 Dose: 240 mg Admin: 08/30/18 08:41 Dose: 240 mg Diltiazem HCl (Cardizem) 10 mg IVPUSH Q4H PRN PRN Reason: FOR HR > 110 Docusate Sodium (Colace) 100 mg PO BID [facility] Last Admin: 08/31/18 21:26 Dose: 100 mg Admin: 08/31/18 08:14 Dose: 100 mg Admin: 08/30/18 21:09 Dose: 100 mg Admin: 08/30/18 08:43 Dose: 100 mg Admin: 08/29/18 21:36 Dose: 100 mg Doxazosin Mesylate (Cardura) 4 mg PO BEDTIME [facility] Last Admin: 08/31/18 21:27 Dose: 4 mg Admin: 08/30/18 21:10 Dose: 4 mg Admin: 08/29/18 21:38 Dose: 4 mg Enoxaparin Sodium (Lovenox) 110 mg SUBCUT Q12H [facility] Last Admin: 08/31/18 21:23 Dose: 110 mg Admin: 08/31/18 09:50 Dose: 110 mg Furosemide (Lasix) 20 mg PO DAILY [facility] Last Admin: 08/31/18 09:50 Dose: Glipizide (Glucotrol Xl) 10 mg PO BID [facility] Last Admin: 08/31/18 21:26 Dose: 10 mg Admin: 08/31/18 08:14 Dose: 10 mg Admin: 08/30/18 21:10 Dose: 10 mg Admin: 08/30/18 08:44 Dose: 10 mg Admin: 08/29/18 21:36 Dose: 10 mg Hydrochlorothiazide (Hydrochlorothiazide) 12.5 mg PO DAILY [facility] Last Admin: 08/30/18 08:42 Dose: 12.5 mg Insulin Glargine (Lantus) 50 unit SUBCUT DAILY [facility] Last Admin: 08/31/18 08:07 Dose: 50 units Admin: 08/30/18 08:45 Dose: 50 units Insulin Human Lispro (Humalog) 0 unit SUBCUT QIDACANDBED [facility]; Protocol Last Admin: 09/01/18 06:06 Dose: Not Given Admin: 08/31/18 21:35 Dose: 1 units Admin: 08/31/18 18:36 Dose: Not Given Admin: 08/31/18 11:29 Dose: Not Given Admin: 08/31/18 06:15 Dose: Not Given Admin: 08/30/18 21:11 Dose: 1 units Admin: 08/30/18 17:28 Dose: 1 units Admin: 08/30/18 12:05 Dose: 2 units Admin: 08/30/18 08:48 Dose: 1 units Admin: 08/29/18 21:38 Dose: 2 units Admin: 08/29/18 17:36 Dose: 2 units Admin: 08/29/18 13:30 Dose: Levothyroxine Sodium (Synthroid) 50 mcg PO DAILY@0700 [facility] Last Admin: 09/01/18 06:04 Dose: 50 mcg Admin: 08/31/18 06:22 Dose: 50 mcg Admin: 08/30/18 06:50 Dose: 50 mcg Losartan Potassium (Cozaar) 50 mg PO DAILY [facility] Last Admin: 08/31/18 09:50 Dose: Metoprolol Succinate (Toprol Xl) 100 mg PO DAILY [facility] Last Admin: 08/31/18 08:09 Dose: 100 mg Admin: 08/30/18 08:52 Dose: 100 mg Morphine Sulfate (Morphine) 2 mg IVPUSH Q2H PRN PRN Reason: Breakthrough Pain Naloxone HCl (Narcan) 0.1 mg IVPUSH Q5M PRN PRN Reason: Oversedation Ondansetron HCl (Zofran) 4 mg IVPUSH Q6H PRN PRN Reason: Nausea/Vomiting Tiotropium Respimat (2.5 Mcg Ptom) 0 each INH DAILY [facility] Last Admin: 08/31/18 09:09 Dose: 2 each Admin: 08/30/18 08:26 Dose: 2 each Polyethylene Glycol (Miralax) 17 gm PO DAILY PRN PRN Reason: constipation Senna (Senna) 8.6 mg PO BID PRN PRN Reason: Constipation Last Admin: 08/31/18 18:44 Dose: 8.6 mg Triamcinolone Acetonide (Triamcinolone Acetonide 0.1% Crm) 0 gm TOP BID PRN PRN Reason: SKIN COMPLICATIONS Warfarin Sodium (Pharmacy To Dose - Warfarin) 0 dose .XX ASDIRECTED PRN PRN Reason: RX TO DOSE WARFARIN - Assessment Assessment (Free Text/Narrative):: POD#3 - 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 Discharge to [facility] in [place], [place] today. 2. Therapy in [place]. 3. Lovenox and Coumadin as per Pharmacy instruction. The pt's case was discussed with Dr. Eldridge.
[2018-09-01] MEDS: [UNRECOGNIZED DRUG - OTHER] INH SCH (09:19)
[2018-09-01] MEDS: Docusate Sodium 100 MG Cap PO SCH ×2 (09:38→21:46)
[2018-09-01] MEDS: Losartan 25 MG Tab PO SCH (09:39)
[2018-09-01] MEDS: Metoprolol Succinate 50 MG Tab.ER PO SCH (09:41)
[2018-09-01] MEDS: Furosemide 20 MG Tab PO SCH (09:42)
[2018-09-01] MEDS: Diltiazem 240 MG Cap.ER PO SCH (09:43)
[2018-09-01] MEDS: Aspirin 81 MG Tab.EC PO SCH (09:43)
[2018-09-01] MEDS: glipiZIDE 5 MG Tab.ER PO SCH ×2 (09:43→21:52)
[2018-09-01] MEDS: Insulin Glarg,Human.Rec.Analog 100 UNIT/ML ML SUBCUT SCH (09:44)
[2018-09-01] MEDS: Cholecalciferol (Vitamin D3) 5,000 UNIT Tab PO SCH (09:44)
[2018-09-01] MEDS: Enoxaparin 120 MG/0.8 ML Syringe SUBCUT SCH ×2 (09:47→21:47)
[2018-09-01] MEDS ORDERED: Magnesium Hydroxide 400 MG/5 ML Susp 30 ML Cup PO ONE (16:25)
[2018-09-01] MEDS: Doxazosin 4 MG Tab PO SCH (21:46)
[2018-09-02] MEDS: Insulin Lispro 100 Units/ML 3 ML Vial SUBCUT SCH ×2 (06:25→11:55)
[2018-09-02] MEDS: Acetaminophen/HYDROcodone 325-5 MG Tab PO PRN ×2 (06:26→11:22)
[2018-09-02] MEDS: Levothyroxine 50 MCG Tab PO SCH (06:26)
--- NOTE | 2018-09-02 07:17 | PCM.CONSN ---
- General Info Date of Service: 09/02/18 Subjective Update: In to see Jon. He has no concerns. His blood sugars were slightly low to day however they increased to 90+. He was asymptomatic. Sugars have otherwise been high. No other nursing concerns. Plan was to discharge to [facility] originally however, now they do not have beds available so he will be going home under the care of his daughter who reportedly is a nurse. He continues to do well. Functional Status: Reports: Pain Controlled, Tolerating Diet, Ambulating, Urinating, Incentive Spirometry. Denies: New Symptoms - Review of Systems General: Reports: No Symptoms. Denies: Fever, Malaise, Chills HEENT: Reports: No Symptoms. Denies: Headaches, Sore Throat Pulmonary: Reports: No Symptoms. Denies: Shortness of Breath, Pleuritic Chest Pain, Cough, Sputum Cardiovascular: Reports: No Symptoms. Denies: Chest Pain, Palpitations, Dyspnea on Exertion, Lightheadedness Gastrointestinal: Reports: No Symptoms. Denies: Abdominal Pain, Constipation, Diarrhea, Nausea, Vomiting Genitourinary: Reports: No Symptoms. Denies: Pain Musculoskeletal: Reports: Leg Pain Skin: Reports: No Symptoms. Denies: Cyanosis Neurological: Reports: No Symptoms. Denies: Confusion Psychiatric: Reports: No Symptoms - Patient Data Vitals - Most Recent: Last Vital Signs Temp 97.5 F 09/02/18 06:02 Pulse 81 09/02/18 06:02 Resp 19 09/02/18 06:02 BP 114/66 09/02/18 06:02 Pulse Ox 91 L 09/02/18 06:54 Weight - Most Recent: 242 lb I&O - Last 24 Hours: Intake & Output 09/01/18 09/02/18 09/02/18 22:59 06:59 14:59 Intake Total 780 600 Balance 780 600 Lab Results Last 24 Hours: Laboratory Results - last 24 hr 09/01/18 09/01/18 09/01/18 Range/Units 08:27 11:12 17:06 POC Glucose 151 H 157 H 105 (83-110) mg/dL 09/01/18 09/02/18 09/02/18 Range/Units 21:51 06:04 06:23 POC Glucose 96 72 L 98 (83-110) mg/dL Med Orders - Current: Current Medications Hydrocodone Bitart/Acetaminophen ([place] 325-5 Mg) 1 - 2 tab PO Q4H PRN PRN Reason: Pain Last Admin: 09/02/18 06:26 Dose: 1 tab Aspirin (Halfprin) 81 mg PO DAILY [facility] Last Admin: 09/01/18 09:43 Dose: 81 mg Benzocaine/Menthol (Cepacol Sore Throat) 1 lozenge MUCMEM Q2HR PRN PRN Reason: Sore Throat Last Admin: 08/31/18 21:28 Dose: 1 lozenge Bisacodyl (Dulcolax) 5 mg PO DAILY PRN PRN Reason: Constipation Last Admin: 09/01/18 10:26 Dose: 5 mg Cholecalciferol (Vitamin D3) 5,000 unit PO DAILY [facility] Last Admin: 09/01/18 09:44 Dose: 5,000 unit Diltiazem HCl (Dilacor Xr) 240 mg PO DAILY [facility] Last Admin: 09/01/18 09:43 Dose: 240 mg Diltiazem HCl (Cardizem) 10 mg IVPUSH Q4H PRN PRN Reason: FOR HR > 110 Docusate Sodium (Colace) 100 mg PO BID [facility] Last Admin: 09/01/18 21:46 Dose: 100 mg Doxazosin Mesylate (Cardura) 4 mg PO BEDTIME [facility] Last Admin: 09/01/18 21:46 Dose: 4 mg Enoxaparin Sodium (Lovenox) 110 mg SUBCUT Q12H [facility] Last Admin: 09/01/18 21:47 Dose: 110 mg Furosemide (Lasix) 20 mg PO DAILY [facility] Last Admin: 09/01/18 09:42 Dose: 20 mg Glipizide (Glucotrol Xl) 10 mg PO BID [facility] Last Admin: 09/01/18 21:52 Dose: Not Given Hydrochlorothiazide (Hydrochlorothiazide) 12.5 mg PO DAILY [facility] Last Admin: 08/30/18 08:42 Dose: 12.5 mg Insulin Glargine (Lantus) 50 unit SUBCUT DAILY [facility] Last Admin: 09/01/18 09:44 Dose: 50 units Insulin Human Lispro (Humalog) 0 unit SUBCUT QIDACANDBED [facility]; Protocol Last Admin: 09/02/18 06:25 Dose: Not Given Levothyroxine Sodium (Synthroid) 50 mcg PO DAILY@0700 [facility] Last Admin: 09/02/18 06:26 Dose: 50 mcg Losartan Potassium (Cozaar) 50 mg PO DAILY [facility] Last Admin: 09/01/18 09:39 Dose: 50 mg Metoprolol Succinate (Toprol Xl) 100 mg PO DAILY [facility] Last Admin: 09/01/18 09:41 Dose: 100 mg Morphine Sulfate (Morphine) 2 mg IVPUSH Q2H PRN PRN Reason: Breakthrough Pain Naloxone HCl (Narcan) 0.1 mg IVPUSH Q5M PRN PRN Reason: Oversedation Ondansetron HCl (Zofran) 4 mg IVPUSH Q6H PRN PRN Reason: Nausea/Vomiting Tiotropium Respimat (2.5 Mcg Ptom) 0 each INH DAILY [facility] Last Admin: 09/01/18 09:19 Dose: 2 each Polyethylene Glycol (Miralax) 17 gm PO DAILY PRN PRN Reason: constipation Last Admin: 09/01/18 17:07 Dose: 17 gm Senna (Senna) 8.6 mg PO BID PRN PRN Reason: Constipation Last Admin: 08/31/18 18:44 Dose: 8.6 mg Triamcinolone Acetonide (Triamcinolone Acetonide 0.1% Crm) 0 gm TOP BID PRN PRN Reason: SKIN COMPLICATIONS Warfarin Sodium (Pharmacy To Dose - Warfarin) 0 dose .XX ASDIRECTED PRN PRN Reason: RX TO DOSE WARFARIN Discontinued Medications Bupivacaine HCl (Marcaine 0.25%) Confirm Administered Dose 30 ml .ROUTE .STK- MED ONE Stop: 08/29/18 06:32 Last Admin: 08/29/18 08:41 Dose: 4 ml Bupivacaine HCl (Sensorcaine-Mpf 0.75%) Confirm Administered Dose 30 ml .ROUTE .STK-MED ONE Stop: 08/29/18 07:29 Cefazolin Sodium (Ancef) Confirm Administered Dose 2 gm .ROUTE .STK-MED ONE Stop: 08/29/18 06:32 Last Admin: 08/29/18 08:10 Dose: 2 gm Cefazolin Sodium (Ancef) Confirm Administered Dose 1 gm .ROUTE .STK-MED ONE Stop: 08/29/18 06:43 Cefazolin Sodium (Ancef) Confirm Administered Dose 2 gm .ROUTE .STK-MED ONE Stop: 08/29/18 06:50 Cholecalciferol (Vitamin D3) 1 unit PO DAILY [facility] Morphine Sulfate 8 mg/Epinephrine HCl 0.3 mg/Cefuroxime Sodium 750 mg/Sodium Chloride 28.9 ml 0 mg .XX ONETIME ONE Stop: 08/29/18 07:41 Last Admin: 08/29/18 08:15 Dose: 758.3 mg Epinephrine HCl (Adrenalin) Confirm Administered Dose 1 mg .ROUTE .STK-MED ONE Stop: 08/29/18 09:07 Famotidine (Pepcid) 20 mg PO Q12H [facility] Famotidine (Pepcid) 20 mg IVPUSH ONETIME ONE Stop: 08/29/18 06:46 Last Admin: 08/29/18 13:32 Dose: Not Given Fentanyl (Sublimaze) Confirm Administered Dose 100 mcg .ROUTE .STK-MED ONE Stop: 08/29/18 06:50 Lactated Ringer's (Ringers, Lactated) 1,000 mls @ 125 mls/hr IV ASDIRECTED [facility] Stop: 08/29/18 23:00 Last Admin: 08/29/18 06:20 Dose: 125 mls/hr Cefazolin Sodium/Dextrose 2 gm (/ Premix) 50 mls @ 100 mls/hr IV Q8H [facility] Stop: 08/30/18 07:29 Last Admin: 08/30/18 06:50 Dose: 100 mls/hr Lidocaine HCl (Xylocaine-Mpf 1%) Confirm Administered Dose 5 mls @ as directed .ROUTE .STK-[facility] ONE Stop: 08/29/18 07:29 Sodium Chloride (Normal Saline) 1,000 mls @ 75 mls/hr IV ASDIRECTED [facility] Stop: 08/30/18 22:04 Last Admin: 08/30/18 10:02 Dose: 75 mls/hr Iodine (Iodine 2% Mild Tincture) Confirm Administered Dose 30 ml .ROUTE .STK- MED ONE Stop: 08/29/18 06:32 Last Admin: 08/29/18 08:07 Dose: 18 ml Lidocaine/Sodium Bicarbonate (Buffered Lidocaine 1% In Ns 8.4%) 0.25 ml IDERM ONETIME PRN PRN Reason: Prior to IV Start Stop: 08/29/18 23:00 Last Admin: 08/29/18 06:20 Dose: 0.25 ml Magnesium Hydroxide (Milk Of Magnesia) 30 ml PO ONETIME ONE Stop: 09/01/18 16:26 Last Admin: 09/01/18 17:07 Dose: 30 ml Metoprolol Tartrate (Lopressor) 5 mg IVPUSH Q6H PRN PRN Reason: Tachycardia Last Admin: 08/30/18 09:59 Dose: 5 mg Ondansetron HCl (Zofran) Confirm Administered Dose 4 mg .ROUTE .STK-MED ONE Stop: 08/29/18 06:49 Phenylephrine HCl (Phenylephrine In Ns 100 Mcg/Ml) Confirm Administered Dose 1 mg .ROUTE .STK-MED ONE Stop: 08/29/18 07:53 Propofol (Diprivan 20 Ml) Confirm Administered Dose 200 mg .ROUTE .STK-MED ONE Stop: 08/29/18 06:49 Ropivacaine (Naropin 0.5%) Confirm Administered Dose 30 ml .ROUTE .STK-MED ONE Stop: 08/29/18 09:07 Sodium Chloride (Saline Flush) 10 ml FLUSH ASDIRECTED PRN PRN Reason: Keep Vein Open Stop: 08/29/18 23:00 Tranexamic Acid (Cyklokapron) Confirm Administered Dose 1,000 mg .ROUTE .STK- MED ONE Stop: 08/29/18 06:32 Last Admin: 08/29/18 08:22 Dose: 1,000 mg Triamcinolone Acetonide (Kenalog-40) Confirm Administered Dose 80 mg .ROUTE .STK -MED ONE Stop: 08/29/18 06:32 Last Admin: 08/29/18 08:41 Dose: 80 mg Vancomycin HCl (Vancomycin) Confirm Administered Dose 1 gm .ROUTE .STK-MED ONE Stop: 08/29/18 06:32 Last Admin: 08/29/18 08:20 Dose: 1 gm Warfarin Sodium (Coumadin) 2.5 mg PO [email or web address] [facility] Last Admin: 08/29/18 17:35 Dose: 2.5 mg Warfarin Sodium (Coumadin) 5 mg PO [email or web address] [facility] Last Admin: 08/30/18 17:26 Dose: 5 mg Warfarin Sodium (Coumadin) 5 mg PO QPM [facility] Stop: 08/31/18 18:01 Last Admin: 08/31/18 18:38 Dose: 5 mg Warfarin Sodium (Pharmacy To Dose - Warfarin) 1 dose .XX ASDIRECTED [facility] Warfarin Sodium (Coumadin) 6 mg PO QPM [facility] Stop: 09/01/18 18:01 Last Admin: 09/01/18 17:12 Dose: 6 mg - Exam Quality Assessment: DVT Prophylaxis General: Alert, Oriented, Cooperative, No Acute Distress HEENT: Pupils Equal, Pupils Reactive, EOMI, Mucous Membr. Moist/Krebs Neck: Supple, Trachea Midline, No JVD, No Thyromegaly Lungs: Clear to Auscultation, Normal Respiratory Effort Cardiovascular: Regular Rate, Irregular Rhythm GI/Abdominal Exam: Normal Bowel Sounds, Soft, Non-Tender, No Organomegaly, No Distention (Male) Exam: Deferred Back Exam: Normal Inspection, Full Range of Motion Extremities: Non-Tender, No Pedal Edema, Normal Capillary Refill, Leg Pain, Limited Range of Motion, Other (Bandage in place on right leg. Cooling pack in place. ) Peripheral Pulses: 2+: Radial (L), Radial (R), Dorsalis Pedis (L), Dorsalis Pedis (R) Skin: Warm, Dry, Intact Wound/Incisions: Dressing Dry and Intact, No Drainage Neurological: No New Focal Deficit Psy/Mental Status: Alert, Normal Affect, Normal Mood Consult PN Assessment/Plan POD#: 4 (1) S/P total knee arthroplasty SNOMED Code(s): 2439172265449, 466385809, 6540203745700 Code(s): Z96.659 - PRESENCE OF UNSPECIFIED ARTIFICIAL KNEE JOINT Priority: High Current Visit: Yes Qualifiers: Laterality: right Qualified Code(s): Z96.651 - Presence of right artificial knee joint (2) Osteoarthritis SNOMED Code(s): 657966208 Code(s): M19.90 - UNSPECIFIED OSTEOARTHRITIS, UNSPECIFIED SITE Priority: High Current Visit: Yes Qualifiers: Osteoarthritis location: knee Osteoarthritis type: primary Laterality: bilateral Qualified Code(s): M17.0 - Bilateral primary osteoarthritis of knee (3) CHF (congestive heart failure) SNOMED Code(s): 26883758 Code(s): I50.9 - HEART FAILURE, UNSPECIFIED Priority: Medium Current Visit: No Qualifiers: Heart failure type: unspecified Heart failure chronicity: unspecified Qualified Code(s): I50.9 - Heart failure, unspecified (4) HLD (hyperlipidemia) SNOMED Code(s): 14127712 Code(s): E78.5 - HYPERLIPIDEMIA, UNSPECIFIED Priority: Low Current Visit : No Qualifiers: Hyperlipidemia type: unspecified Qualified Code(s): E78.5 - Hyperlipidemia , unspecified (5) Chronic lower back pain SNOMED Code(s): 391083658 Code(s): M54.5 - LOW BACK PAIN; G89.29 - OTHER CHRONIC PAIN Priority: Low Current Visit: No Qualifiers: Back pain laterality: unspecified Sciatica presence: unspecified whether sciatica present Qualified Code(s): M54.5 - Low back pain; G89.29 - Other chronic pain (6) COPD (chronic obstructive pulmonary disease) SNOMED Code(s): 62331167 Code(s): J44.9 - CHRONIC OBSTRUCTIVE PULMONARY DISEASE, UNSPECIFIED Priority: Medium Current Visit: No Qualifiers: COPD type: unspecified COPD Qualified Code(s): J44.9 - Chronic obstructive pulmonary disease, unspecified (7) History of AAA (abdominal aortic aneurysm) repair SNOMED Code(s): 252988470 Code(s): Z98.890 - OTHER SPECIFIED POSTPROCEDURAL STATES Priority: Medium Current Visit: No (8) Hypothyroidism SNOMED Code(s): 50145868 Code(s): E03.9 - HYPOTHYROIDISM, UNSPECIFIED Priority: Medium Current Visit: No Qualifiers: Hypothyroidism type: unspecified Qualified Code(s): E03.9 - Hypothyroidism , unspecified (9) Type II diabetes mellitus SNOMED Code(s): 08074073 Code(s): E11.9 - TYPE 2 DIABETES MELLITUS WITHOUT COMPLICATIONS Priority: Medium Current Visit: No Qualifiers: 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: unspecified senior care insulin use status Diabetes mellitus complication status: with unspecified complications Qualified Code(s): E11.8 - Type 2 diabetes mellitus with unspecified complications (10) A-fib SNOMED Code(s): 04524562 Code(s): I48.91 - UNSPECIFIED ATRIAL FIBRILLATION Priority: Medium Current Visit: No Qualifiers: Atrial fibrillation type: unspecified Qualified Code(s): I48.91 - Unspecified atrial fibrillation (11) CKD (chronic kidney disease) SNOMED Code(s): 675992225 Code(s): N18.9 - CHRONIC KIDNEY DISEASE, UNSPECIFIED Priority: Medium Current Visit: No Qualifiers: Chronic kidney disease stage: stage 3 (moderate) Qualified Code(s): N18.3 - Chronic kidney disease, stage 3 (moderate) (12) CAD (coronary artery disease) SNOMED Code(s): 67804654 Code(s): I25.10 - ATHSCL HEART DISEASE OF [place] CORONARY ARTERY W/O ANG PCTRS Priority: Medium Current Visit: No Qualifiers: Coronary Disease-Associated Artery/Lesion type: unspecified vessel or lesion type [place] vs. transplanted heart: [place] heart Associated angina: angina presence unspecified Qualified Code(s): I25.10 - Atherosclerotic heart disease of [place] coronary artery without angina pectoris (13) History of four vessel coronary artery bypass graft SNOMED Code(s): 669921828, 190798461 Code(s): Z95.1 - PRESENCE OF AORTOCORONARY BYPASS GRAFT Priority: Medium Current Visit: No (14) Subtherapeutic international normalized ratio (INR) SNOMED Code(s): 793951502, 689391852 Code(s): R79.1 - ABNORMAL COAGULATION PROFILE Priority: High Current Visit: Yes Problem List Initiated/Reviewed/Updated: Yes My Orders Last 24 Hours: My Active Orders 09/02/18 06:15 BASIC METABOLIC PANEL,BMP [CHEM] AM CBC WITH AUTO DIFF [HEME] AM MAGNESIUM [CHEM] AM 09/03/18 05:11 BASIC METABOLIC PANEL,BMP [CHEM] AM CBC WITH AUTO DIFF [HEME] AM MAGNESIUM [CHEM] AM Plan: I/P: Acute: S/P right total knee arthroplasty - post-operative day 4 -DVT prophylaxis and pain management per primary care team -PT/OT -IS/RT -Monitor oxygen saturation -Titrate oxygen as needed -Vital signs stable -Monitor labs -Pre-operative Hgb was 16.6; Now 15.8 -->14.8-->14.7-->14.8 -Pre-operative GFR was 34; Now 32-->39-->39-->36 -Pre-operative Creatinine was 1.9, Now 2.0-->1.7-->1.7-->1.8 -Pre-operative BUN was 42; Now 44-->45-->49-->53 -Preoperative A1C was 7.1% -Echo on 05/05/19 showed EF of 59%, A-flutter at 61 BPM Osteoarthritis of bilateral knee -Pain management per primary care team S/P left knee steroid injection -Management per primary team Subtherapeutic INR -INR 1.20-->1.17-->1.19-->1.30-->1.45 -Pharmacy to dose warfarin; resume home dosing on discharge -Lovenox 1mg/kg BID until therapeutic with warfarin Resolved: S/P Tachycardia (resolved with pain medications) -Sustained A-Flutter in 110's to 120's -Metoprolol given with little effect -Optimize pain control -10mg cardizem IVP Q6Hr PRN -IV fluids started -At baseline respiratory status Chronic: Hard of hearing hematuria CHF hydronephrosis HLD claudication lower back pain COPD AAA with repair in 2005 hypothyroidism type II DM A. fib atrial flutter CAD stage III CAD CABG 4 in 2005 stent placement in 2014 Plan: CM for discharge planning GI prophylaxis Home medications as indicated Other orders as listed above Routine AM labs He is a full code. His PCP is Dr. Gallagher Overall from a hospitalist standpoint Jon is doing well and remains clinically stable. He has been up ambulating and working with therapies. He has urinated and is off of oxygen. His INR has been subtherapeutic and he has been started on BID Lovenox 1mg/kg until he reaches therapeutic level. Will continue home dosing on discharge. Recommend re-check INR in 2-3 days. Otherwise labs and vital signs remain stable. He was tachycardic while he was here for a bit and this was found to be due to inadequate pain control. He is a rather stoic individual. He continues to be cleared for discharge pending primary team and PT /OT agreement. Original plan was swing bed placement in [place], however that has changed and he will now go home with PT/OT and a daughter who is reportedly a nurse to care for him. Thank you for allowing us to participate in the care of this patient!!
[2018-09-02] MEDS: [UNRECOGNIZED DRUG - OTHER] INH SCH (08:15)
[2018-09-02] MEDS: Docusate Sodium 100 MG Cap PO SCH (09:56)
[2018-09-02] MEDS: glipiZIDE 5 MG Tab.ER PO SCH (09:58)
[2018-09-02] MEDS: Hydrochlorothiazide 12.5 MG Cap PO SCH (09:58)
[2018-09-02] MEDS: Cholecalciferol (Vitamin D3) 5,000 UNIT Tab PO SCH (09:59)
[2018-09-02] MEDS: Aspirin 81 MG Tab.EC PO SCH (09:59)
[2018-09-02] MEDS: Metoprolol Succinate 50 MG Tab.ER PO SCH (10:00)
[2018-09-02] MEDS: Diltiazem 240 MG Cap.ER PO SCH (10:00)
[2018-09-02] MEDS: Losartan 25 MG Tab PO SCH (10:00)
[2018-09-02] MEDS: Furosemide 20 MG Tab PO SCH (10:01)
[2018-09-02] MEDS: Enoxaparin 120 MG/0.8 ML Syringe SUBCUT SCH (10:01)
[2018-09-02] MEDS: Insulin Glarg,Human.Rec.Analog 100 UNIT/ML ML SUBCUT SCH (10:03)
[2018-09-02] MEDS ORDERED: Warfarin 7.5 MG Tab PO SCH (18:00)
== END 2018-09-02 14:20 | disposition home or self-care (01) | DRG 470 ==
LOC: JD.MS 08-29 06:05 → EDSTATUS 08-29 07:30
PROVIDERS: ADMIT Orthopaedic Surgery; ATTEND Orthopaedic Surgery
PROC: 3E0U3BZ Introduction of Anesthetic Agent into Joints, Percutaneous Approach (ICD-10-PCS; principal; 2018-08-29)
PROC: 3E0U33Z Introduction of Anti-inflammatory into Joints, Percutaneous Approach (ICD-10-PCS; principal; 2018-08-29)
PROC: 0SRC0J9 Replacement of Right Knee Joint with Synthetic Substitute, Cemented, Open Approach (ICD-10-PCS; principal; 2018-08-29)
PROC: 3E0T3BZ Introduction of Anesthetic Agent into Peripheral Nerves and Plexi, Percutaneous Approach (ICD-10-PCS; 2018-08-29)
DX: M17.0 Bilateral primary osteoarthritis of knee (principal); I13.0 Hypertensive heart and chronic kidney disease with heart failure and stage 1 through stage 4 chronic kidney disease, or unspecified chronic kidney disease; I48.92 Unspecified atrial flutter; N18.4 Chronic kidney disease, stage 4 (severe); I50.9 Heart failure, unspecified; E78.00 Pure hypercholesterolemia, unspecified; J44.9 Chronic obstructive pulmonary disease, unspecified; R09.02 Hypoxemia; E03.9 Hypothyroidism, unspecified; R79.1 Abnormal coagulation profile; G89.18 Other acute postprocedural pain; E11.40 Type 2 diabetes mellitus with diabetic neuropathy, unspecified; E11.51 Type 2 diabetes mellitus with diabetic peripheral angiopathy without gangrene; G47.00 Insomnia, unspecified; E66.9 Obesity, unspecified; I48.91 Unspecified atrial fibrillation; E11.22 Type 2 diabetes mellitus with diabetic chronic kidney disease; I25.10 Atherosclerotic heart disease of native coronary artery without angina pectoris; E78.5 Hyperlipidemia, unspecified; I73.9 Peripheral vascular disease, unspecified; H54.7 Unspecified visual loss; K59.09 Other constipation; E20.9 Hypoparathyroidism, unspecified; G89.29 Other chronic pain; M54.5 Low back pain; H91.90 Unspecified hearing loss, unspecified ear; Z88.8 Allergy status to other drugs, medicaments and biological substances; Z79.899 Other long term (current) drug therapy; Z95.1 Presence of aortocoronary bypass graft; Z95.5 Presence of coronary angioplasty implant and graft; Z87.891 Personal history of nicotine dependence; Z79.890 Hormone replacement therapy; Z79.4 Long term (current) use of insulin; Z68.34 Body mass index [BMI] 34.0-34.9, adult; Z79.01 Long term (current) use of anticoagulants; Z79.82 Long term (current) use of aspirin
CPT/HCPCS: 01402; 36415; 64450; 73560-26-RT; 73560-RT; 80048; 80053; 82962; 83735; 85025; 85027; 85610; 94640; 94760; 97110-GO; 97110-GP; 97116-GP; 97161-GP; 97165-GO; 97530-GO; 97535-GO; A9270-GY; C1713; C1776; J0171; J0690; J0697; J1650; J1815-GY; J2001; J2270; J2370; J2405; J2704; J2795; J3010; J3301; J3370; J3490; J7040; J7120

== ENCOUNTER 2019-04-05 09:26 | Observation (INO) | payer MEDICARE, OTHER ==
[2019-04-05] MEDS ORDERED: Acetaminophen 325 MG Tab PO ONE (10:19)
--- NOTE | 2019-04-05 11:05 | CR ---
Right knee: AP, lateral and sunrise patellar views of the right knee were obtained. Comparison: Previous right knee study of 08/29/18. Knee prosthesis is seen. Components are aligned. Vascular calcification is noted. Small joint effusion is seen. No fracture or other bony abnormality is seen. Impression: 1. Small joint effusion. 2. Knee prosthesis and vascular calcification. Diagnostic code #2
--- NOTE | 2019-04-05 12:02 | EDM.PDOC ---
ED HPI GENERAL MEDICAL PROBLEM - General Chief Complaint: Lower Extremity Injury/Pain Stated Complaint: UNABLE TO WALK ON RIGHT KNEE Time Seen by Provider: 04/05/19 10:07 Source of Information: Reports: Patient, RN Notes Reviewed - History of Present Illness INITIAL COMMENTS - FREE TEXT/NARRATIVE: 83-year-old male comes in with right knee pain. He states he was feeling fine and not having any difficulty with his legs or knees yesterday. This morning he had pain with ambulation after getting up for the day but could walk. Than after sitting in a chair he was unable to get up and walk due to the severity of right knee discomfort. He did have a right knee replacement that occurred about 7 months ago. The surgery and rehabilitation went very well. He is having mild pain at rest but severe pain with motion at the joint. He is not aware of any injury. Is on Coumadin Right Knee Pain Score (Numeric/FACES): 10 - Related Data Allergies Allergy/AdvReac Type Severity Reaction Status Date / Time TREY Inhibitors AdvReac Cough Verified 04/05/19 09:43 Home Meds: Home Meds Diltiazem HCl [Cardizem Cd] 240 mg PO DAILY 08/26/18 [History] Doxazosin [Cardura] 4 mg PO BEDTIME 08/26/18 [History] Furosemide 40 mg PO DAILY 08/26/18 [History] Insulin Glarg,Human.Rec.Analog [Lantus] 50 units SQ DAILY 08/26/18 [History] Levothyroxine [Synthroid] 50 mcg PO DAILY 08/26/18 [History] Metoprolol Succinate [Toprol Xl] 100 mg PO DAILY 08/26/18 [History] Tiotropium [Spiriva HandiHaler] 1 puff INH DAILY 08/26/18 [History] Warfarin Sodium 2.5 mg PO MO 08/26/18 [History] Warfarin Sodium 5 mg PO SUTUWETHFRSA 08/26/18 [History] Spironolactone [Aldactone] 25 mg PO DAILY 04/05/19 [History] Past Medical History HEENT History: Reports: Impaired Vision, Other (See Below) Other HEENT History: wears glasses, has hearing aids, has dentures Cardiovascular History: Reports: Afib, CAD, Heart Failure, High Cholesterol, Stents Respiratory History: Reports: COPD Gastrointestinal History: Reports: Cholelithiasis, Chronic Constipation Genitourinary History: Reports: Other (See Below) Other Genitourinary History: hematuria, left hydronephrosis, CKDIII [employer]LL [employer]IE[employer] OPERATOR History: Reports: None Musculoskeletal History: Reports: Other (See Below) Other Musculoskeletal History: right hip bursitis, mallet finger, low back pain , degenerative arthritis Neurological History: Reports: Other (See Below) Other Neuro History: spinal claudication Psychiatric History: Reports: Other (See Below) Other Psychiatric History: insomnia Endocrine/Metabolic History: Reports: Diabetes, Type II, Hypoparathyroidism Hematologic History: Reports: None Immunologic History: Reports: None Oncologic (Cancer) History: Reports: None Dermatologic History: Reports: Other (See Below) Other Dermatologic History: external nasal lesion - Infectious Disease History Infectious Disease History: Reports: Measles - Past Surgical History Head Surgeries/Procedures: Reports: None Cardiovascular Surgical History: Reports: AAA Repair, Coronary Artery Bypass Respiratory Surgical History: Reports: None GI Surgical History: Reports: None Male Surgical History: Reports: None Endocrine Surgical History: Reports: None Neurological Surgical History: Reports: None Musculoskeletal Surgical History: Reports: None Oncologic Surgical History: Reports: None Social & Family History - Family History Family Medical History: Noncontributory - Tobacco Use Smoking Status *Q: Never Smoker - Caffeine Use Caffeine Use: Reports: Coffee - Recreational Drug Use Recreational Drug Use: No Review of Systems - Review of Systems Review Of Systems: See Below Constitutional: Denies: Chills, Fever Mouth/Throat: Denies: No Symptoms Respiratory: Denies: No Symptoms, Shortness of Breath Cardiovascular: Denies: Chest Pain GI/Abdominal: Denies: Abdominal Pain Musculoskeletal: Reports: Joint Pain (Right knee) Skin: Denies: Rash, Erythema Neurological: Denies: Numbness, Tingling, Weakness ED EXAM, GENERAL - Physical Exam Exam: See Below General Appearance: Alert, No Apparent Distress (At rest) Eye Exam: Bilateral Eye: PERRL Throat/Mouth: Normal Inspection, Normal Oropharynx Head: Atraumatic Neck: Supple Respiratory/Chest: No Respiratory Distress, Lungs Clear, Normal Breath Sounds Cardiovascular: Regular Rate, Rhythm GI/Abdominal: Soft, Non-Tender Extremities: Joint Swelling (Right knee, mild), Other (He does have a small right knee effusion, pain with motion). No: Increased Warmth, Redness Neurological: Alert, Oriented, No Motor/Sensory Deficits Skin Exam: Warm, Dry, Normal Color Course - Vital Signs Last Recorded V/S: Last Vital Signs Temp 98.5 F 04/05/19 09:41 Pulse 92 04/05/19 09:41 Resp 16 04/05/19 09:41 BP 128/98 H 04/05/19 09:41 Pulse Ox 93 L 04/05/19 09:41 - Orders/Labs/Meds Orders: Active Orders 24 hr Category Date Time Status Admission Status [Patient Status] [ADT] Routine ADT 04/05/19 15:55 Active Blood Glucose Check, Bedside [RC] QIDACANDBED Care 04/05/19 16:17 Active Notify Provider Consults [RC] ASDIRECTED Care 04/05/19 16:21 Active Oxygen Therapy [RC] PRN Care 04/05/19 16:17 Active Up With Assistance [RC] ASDIRECTED Care 04/05/19 16:17 Active VTE/DVT Education [RC] PER UNIT ROUTINE Care 04/05/19 16:17 Active Vital Signs [RC] Q4H Care 04/05/19 16:17 Active Consult to Physician [CONS] Routine Cons 04/05/19 16:17 Active OT Evaluation and Treatment [CONS] Routine Cons 04/05/19 16:17 Active PT Evaluation and Treatment [CONS] Routine Cons 04/05/19 16:17 Active Heart Healthy Diet [DIET] Diet 04/05/19 Dinner Active BASIC METABOLIC PANEL,BMP [CHEM] AM Lab 04/06/19 05:11 Ordered BASIC METABOLIC PANEL,BMP [CHEM] Stat Lab 04/05/19 16:17 Ordered CULTURE BODY FLUID + SMEAR [RM] Stat Lab 04/05/19 14:00 Results GLYCOSYLATED HEMOGLOBIN,HGBA1C [CHEM] Stat Lab 04/05/19 16:17 Ordered INR,PT,PROTHROMBIN TIME [COAG] AM Lab 04/06/19 05:11 Ordered MAGNESIUM [CHEM] Stat Lab 04/05/19 16:17 Ordered PHOSPHORUS [CHEM] Stat Lab 04/05/19 16:17 Ordered Ketorolac [Toradol] Med 04/05/19 16:17 Ordered 30 mg IV Q6H PRN Morphine Med 04/05/19 16:17 Ordered 1 mg IVPUSH Q2H PRN Ondansetron [Zofran ODT] Med 04/05/19 16:17 Ordered 4 mg PO Q6H PRN Ondansetron [Zofran] Med 04/05/19 16:17 Ordered 4 mg IV Q6H PRN VTE Mechanical Contraindications [AST] Per Unit Routine Oth 04/05/19 16:17 Ordered Resuscitation Status Routine Resus Stat 04/05/19 16:17 Ordered Medication Orders Ketorolac Tromethamine (Toradol) 30 mg IV Q6H PRN PRN Reason: Pain (moderate 4-6) Morphine Sulfate (Morphine) 1 mg IVPUSH Q2H PRN PRN Reason: Pain (severe 7-10) Stop: 04/06/19 16:19 Ondansetron HCl (Zofran) 4 mg IV Q6H PRN PRN Reason: Nausea/Vomiting Ondansetron HCl (Zofran Odt) 4 mg PO Q6H PRN PRN Reason: nausea, able to take PO Labs: Laboratory Tests 04/05/19 04/05/19 04/05/19 Range/Units 10:45 10:45 10:45 WBC 12.31 H (4.23-9.07) K/mm3 RBC 6.76 H (4.63-6.08) M/mm3 Hgb 18.0 H D (13.7-17.5) gm/dl Hct 55.5 H (40.1-51.0) % MCV 82.1 (79.0-92.2) fl MCH 26.6 (25.7-32.2) pg MCHC 32.4 (32.2-35.5) g/dl RDW Std Deviation 50.7 H (35.1-43.9) fL Plt Count 211 (163-337) K/mm3 MPV 8.6 L (9.4-12.3) fl Neut % (Auto) 77.1 H (34.0-67.9) % Lymph % (Auto) 11.3 L (21.8-53.1) % [place] % (Auto) 8.6 (5.3-12.2) % Eos % (Auto) 2.1 (0.8-7.0) Baso % (Auto) 0.4 (0.1-1.2) % Neut # (Auto) 9.49 H (1.78-5.38) K/mm3 Lymph # (Auto) 1.39 (1.32-3.57) K/mm3 [place] # (Auto) 1.06 H (0.30-0.82) K/mm3 Eos # (Auto) 0.26 (0.04-0.54) K/mm3 Baso # (Auto) 0.05 (0.01-0.08) K/mm3 Manual Slide Review Normal smear ESR (0-15) mm/hr PT 42.0 H D (9.7-12.0) SECONDS INR 4.18 C-Reactive Protein 0.5 (<1.0) mg/dL Body Fluid Site Fluid Volume ML Fluid Color Fluid Appearance Fluid WBC (0.20-0.60) k/mm*3 Fluid RBC (0.00-0.010) 10*6/uL Fluid Diff Comment Fluid Seg Neutrophils (0-25) % Fluid Lymphocytes (0-78) % Fluid Monocytes (0-71) % Fl Polymorphonucl Cell 04/05/19 04/05/19 Range/Units 10:45 14:00 WBC (4.23-9.07) K/mm3 RBC (4.63-6.08) M/mm3 Hgb (13.7-17.5) gm/dl Hct (40.1-51.0) % MCV (79.0-92.2) fl MCH (25.7-32.2) pg MCHC (32.2-35.5) g/dl RDW Std Deviation (35.1-43.9) fL Plt Count (163-337) K/mm3 MPV (9.4-12.3) fl Neut % (Auto) (34.0-67.9) % Lymph % (Auto) (21.8-53.1) % [place] % (Auto) (5.3-12.2) % Eos % (Auto) (0.8-7.0) Baso % (Auto) (0.1-1.2) % Neut # (Auto) (1.78-5.38) K/mm3 Lymph # (Auto) (1.32-3.57) K/mm3 [place] # (Auto) (0.30-0.82) K/mm3 Eos # (Auto) (0.04-0.54) K/mm3 Baso # (Auto) (0.01-0.08) K/mm3 Manual Slide Review ESR 1 (0-15) mm/hr PT (9.7-12.0) SECONDS INR C-Reactive Protein (<1.0) mg/dL Body Fluid Site Knee Fluid Volume 9 ML Fluid Color Red Fluid Appearance Bloody Fluid WBC 5.67 H (0.20-0.60) k/mm*3 Fluid RBC 5.484 H (0.00-0.010) 10*6/uL Fluid Diff Comment Not Reportable Fluid Seg Neutrophils 83.0 H (0-25) % Fluid Lymphocytes 15.0 (0-78) % Fluid Monocytes 2.0 (0-71) % Fl Polymorphonucl Cell Not Reportable Meds: Medications Generic Name Dose Route Start Last Admin Trade Name Freq PRN Reason Stop Dose Admin Ketorolac Tromethamine 30 mg 04/05/19 16:17 Toradol IV Q6H PRN Pain (moderate 4-6) Morphine Sulfate 1 mg 04/05/19 16:17 Morphine IVPUSH 04/06/19 16:19 Q2H PRN Pain (severe 7-10) Ondansetron HCl 4 mg 04/05/19 16:17 Zofran IV Q6H PRN Nausea/Vomiting Ondansetron HCl 4 mg 04/05/19 16:17 Zofran Odt PO Q6H PRN nausea, able to take PO Discontinued Medications Generic Name Dose Route Start Last Admin Trade Name Freq PRN Reason Stop Dose Admin Acetaminophen 975 mg 04/05/19 10:19 04/05/19 10:42 Tylenol PO 04/05/19 10:20 975 mg NOW ONE Administration Hydrocodone Bitart/Acetaminophen 1 tab 04/05/19 12:11 04/05/19 12:19 [place] 325-5 Mg PO 04/05/19 12:12 1 tab ONETIME ONE Administration Lidocaine HCl 20 ml 04/05/19 13:46 04/05/19 16:16 Xylocaine 1% INJECT 04/05/19 13:47 Not Given ONETIME ONE Lidocaine HCl Confirm 04/05/19 13:48 04/05/19 14:15 Xylocaine 1% Administered 04/05/19 13:49 10 ml Dose Administration 10 ml .ROUTE .STK-MED ONE - Re-Assessments/Exams Free Text/Narrative Re-Assessment/Exam: 04/05/19 16:36 White blood count did come back mildly elevated at around 12,000, C-reactive protein 0.5. INR is 4.0. He has been afebrile. Does not look like a septic knee clinically but he does have quite severe pain with motion. Have given Tylenol initially, he stated that did not help much, we than did follow that up with 1 tab hydrocodone 10/21/24. That did help the pain but he still did have pain with motion and still did have trouble standing and walking. He did not feel he would be able to go home with current discomfort, current difficulty getting up onto his feet and walking. He does live alone with no one available today to help him. I than did do a sterile tap of his R knee and withdrew 59 cc 's of blood. Gram stain is neg. WBC count around 5,600. Culture of fluid also done. Knee has been wrapped with pressure dressing. X ray of the knee is neg. for fx. He has been admitted Observation status for further treatment, evaluation. Departure - Departure Time of Disposition: 15:00 Disposition: Refer to Observation Condition: Fair Clinical Impression: Hemarthrosis Knee pain, right Qualifiers: Chronicity: acute Qualified Code(s): M25.561 - Pain in right knee - Discharge Information ED Communication - Discussed Case With (1) Discussed Case With (1): Admitting Provider (Dr Rodriguez, decision to admit at about 15:00.) - My Orders Last 24 Hours: My Active Orders 04/05/19 14:00 CULTURE BODY FLUID + SMEAR [RM] Stat 04/05/19 15:55 Admission Status [Patient Status] [ADT] Routine - Assessment/Plan Last 24 Hours: My Active Orders 04/05/19 14:00 CULTURE BODY FLUID + SMEAR [RM] Stat 04/05/19 15:55 Admission Status [Patient Status] [ADT] Routine
[2019-04-05] MEDS ORDERED: Acetaminophen/HYDROcodone 325-5 MG Tab PO ONE (12:11)
[2019-04-05] MEDS ORDERED: Lidocaine 1% 20 ML MDV INJECT ONE (13:46)
[2019-04-05] MEDS ORDERED: Lidocaine 1% 10 ML MDV ONE (13:48)
--- NOTE | 2019-04-05 15:36 | PCM.HP.2 ---
H&P History of Present Illness - General Date of Service: 04/05/19 - History of Present Illness Initial Comments - Free Text/Narative: This is an 83-year-old male with past medical history of CAD, diabetes mellitus and HTN on warfarin who comes to the ED brought in by son for sudden onset right knee pain. 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 Hypothyroidism [facility] - pharmacy Right Knee Pain Score (Numeric/FACES): 10 - Related Data Allergies/Adverse Reactions: Allergies Allergy/AdvReac Type Severity Reaction Status Date / Time TREY Inhibitors AdvReac Cough Verified 04/05/19 09:43 Home Medications: Home Meds Doxazosin [Cardura] 4 mg PO BEDTIME 08/26/18 [History] Furosemide 40 mg PO BID 08/26/18 [History] Insulin Glarg,Human.Rec.Analog [Lantus] 50 units SQ DAILY 08/26/18 [History] Levothyroxine [Synthroid] 50 mcg PO DAILY 08/26/18 [History] Metoprolol Succinate [Toprol Xl] 100 mg PO DAILY 08/26/18 [History] Tiotropium [Spiriva HandiHaler] 1 puff INH DAILY 08/26/18 [History] Warfarin Sodium 2.5 mg PO MO 08/26/18 [History] Warfarin Sodium 5 mg PO SUTUWETHFRSA 08/26/18 [History] Diltiazem [Cardizem CD] 240 mg PO DAILY 04/05/19 [History] Spironolactone [Aldactone] 25 mg PO DAILY 04/05/19 [History] Past Medical History HEENT History: Reports: Impaired Vision, Other (See Below) Other HEENT History: wears glasses, has hearing aids, has dentures Cardiovascular History: Reports: Afib, CAD, Heart Failure, High Cholesterol, Stents Respiratory History: Reports: COPD Gastrointestinal History: Reports: Cholelithiasis, Chronic Constipation Genitourinary History: Reports: Other (See Below) Other Genitourinary History: hematuria, left hydronephrosis, CKDIII [employer] GREASER History: Reports: None Musculoskeletal History: Reports: Other (See Below) Other Musculoskeletal History: right hip bursitis, mallet finger, low back pain , degenerative arthritis Neurological History: Reports: Other (See Below) Other Neuro History: spinal claudication Psychiatric History: Reports: Other (See Below) Other Psychiatric History: insomnia Endocrine/Metabolic History: Reports: Diabetes, Type II, Hypoparathyroidism Hematologic History: Reports: None Immunologic History: Reports: None Oncologic (Cancer) History: Reports: None Dermatologic History: Reports: Other (See Below) Other Dermatologic History: external nasal lesion - Infectious Disease History Infectious Disease History: Reports: Measles - Past Surgical History Head Surgeries/Procedures: Reports: None Cardiovascular Surgical History: Reports: AAA Repair, Coronary Artery Bypass Respiratory Surgical History: Reports: None GI Surgical History: Reports: None Male Surgical History: Reports: None Endocrine Surgical History: Reports: None Neurological Surgical History: Reports: None Musculoskeletal Surgical History: Reports: None Oncologic Surgical History: Reports: None Social & Family History - Family History Family Medical History: Noncontributory - Tobacco Use Smoking Status *Q: Never Smoker - Caffeine Use Caffeine Use: Reports: Coffee - Recreational Drug Use Recreational Drug Use: No Exam - Vital Signs Vital Signs: Last Vital Signs Temp 36.9 C 04/05/19 09:41 Pulse 92 04/05/19 09:41 Resp 16 04/05/19 09:41 BP 128/98 H 04/05/19 09:41 Pulse Ox 93 L 04/05/19 09:41 Weight: 102.058 kg - Patient Data Lab Results Last 24 hrs: Laboratory Results - last 24 hr 04/05/19 04/05/19 04/05/19 Range/Units 10:45 10:45 10:45 WBC 12.31 H (4.23-9.07) K/mm3 RBC 6.76 H (4.63-6.08) M/mm3 Hgb 18.0 H D (13.7-17.5) gm/dl Hct 55.5 H (40.1-51.0) % MCV 82.1 (79.0-92.2) fl MCH 26.6 (25.7-32.2) pg MCHC 32.4 (32.2-35.5) g/dl RDW Std Deviation 50.7 H (35.1-43.9) fL Plt Count 211 (163-337) K/mm3 MPV 8.6 L (9.4-12.3) fl Neut % (Auto) 77.1 H (34.0-67.9) % Lymph % (Auto) 11.3 L (21.8-53.1) % [place] % (Auto) 8.6 (5.3-12.2) % Eos % (Auto) 2.1 (0.8-7.0) Baso % (Auto) 0.4 (0.1-1.2) % Neut # (Auto) 9.49 H (1.78-5.38) K/mm3 Lymph # (Auto) 1.39 (1.32-3.57) K/mm3 [place] # (Auto) 1.06 H (0.30-0.82) K/mm3 Eos # (Auto) 0.26 (0.04-0.54) K/mm3 Baso # (Auto) 0.05 (0.01-0.08) K/mm3 Manual Slide Review Normal smear PT 42.0 H D (9.7-12.0) SECONDS INR 4.18 C-Reactive Protein 0.5 (<1.0) mg/dL Body Fluid Site Fluid Volume ML Fluid Color Fluid Appearance Fluid WBC (0.20-0.60) k/mm*3 Fluid RBC (0.00-0.010) 10*6/uL Fluid Diff Comment Fluid Seg Neutrophils (0-25) % Fluid Lymphocytes (0-78) % Fluid Monocytes (0-71) % Fl Polymorphonucl Cell 04/05/19 Range/Units 14:00 WBC (4.23-9.07) K/mm3 RBC (4.63-6.08) M/mm3 Hgb (13.7-17.5) gm/dl Hct (40.1-51.0) % MCV (79.0-92.2) fl MCH (25.7-32.2) pg MCHC (32.2-35.5) g/dl RDW Std Deviation (35.1-43.9) fL Plt Count (163-337) K/mm3 MPV (9.4-12.3) fl Neut % (Auto) (34.0-67.9) % Lymph % (Auto) (21.8-53.1) % [place] % (Auto) (5.3-12.2) % Eos % (Auto) (0.8-7.0) Baso % (Auto) (0.1-1.2) % Neut # (Auto) (1.78-5.38) K/mm3 Lymph # (Auto) (1.32-3.57) K/mm3 [place] # (Auto) (0.30-0.82) K/mm3 Eos # (Auto) (0.04-0.54) K/mm3 Baso # (Auto) (0.01-0.08) K/mm3 Manual Slide Review PT (9.7-12.0) SECONDS INR C-Reactive Protein (<1.0) mg/dL Body Fluid Site Knee Fluid Volume 9 ML Fluid Color Red Fluid Appearance Bloody Fluid WBC 5.67 H (0.20-0.60) k/mm*3 Fluid RBC 5.484 H (0.00-0.010) 10*6/uL Fluid Diff Comment Not Reportable Fluid Seg Neutrophils 83.0 H (0-25) % Fluid Lymphocytes 15.0 (0-78) % Fluid Monocytes 2.0 (0-71) % Fl Polymorphonucl Cell Not Reportable Result Diagrams: 04/05/19 10:45 04/05/19 18:40 Assessment/Plan Comment:: Acute onset right knee pain s/p arthrocentesis in ED Right 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
[2019-04-05] MEDS ORDERED: Ketorolac 30 MG/ML SDV IV PRN (16:17)
[2019-04-05] MEDS ORDERED: Ondansetron 4 MG/2 ML SDV IV PRN (16:17)
[2019-04-05] MEDS ORDERED: Ondansetron 4 MG Tab.DIS PO PRN (16:17)
[2019-04-05] MEDS ORDERED: Morphine 2 MG/ML Syringe IVPUSH PRN (16:17)
[2019-04-05 18:57] LABS: HEMOGLOBIN A1C 6.8 % (4.50-6.20)
[2019-04-05] MEDS: Ketorolac 15 MG/ML SDV IVPUSH PRN (20:51)
[2019-04-06] MEDS: Ketorolac 15 MG/ML SDV IVPUSH PRN (05:03)
--- NOTE | 2019-04-06 08:39 | PCM.PN ---
- General Info Date of Service: 04/06/19 Functional Status: Reports: Pain Controlled, Tolerating Diet, Ambulating, Urinating, New Symptoms - Review of Systems General: Reports: No Symptoms. Denies: Fever, Weakness, Fatigue, Malaise, Chills HEENT: Reports: No Symptoms. Denies: Headaches, Sore Throat Pulmonary: Reports: No Symptoms. Denies: Shortness of Breath, Cough, Wheezing Cardiovascular: Reports: No Symptoms. Denies: Chest Pain, Palpitations, Edema Gastrointestinal: Reports: No Symptoms. Denies: Abdominal Pain, Constipation, Diarrhea, Nausea, Vomiting Genitourinary: Reports: No Symptoms. Denies: Pain Musculoskeletal: Reports: No Symptoms. Denies: Leg Pain, Foot Pain, Joint Pain Skin: Reports: No Symptoms. Denies: Cyanosis Neurological: Reports: No Symptoms. Denies: Confusion, Difficulty Walking, Gait Disturbance Psychiatric: Reports: No Symptoms. Denies: Confusion - Patient Data Vitals - Most Recent: Last Vital Signs Temp 97.9 F 04/05/19 17:10 Pulse 81 04/06/19 05:04 Resp 20 04/06/19 05:04 BP 105/89 04/06/19 05:04 Pulse Ox 97 04/06/19 05:04 Weight - Most Recent: 223 lb 8 oz I&O - Last 24 Hours: Intake & Output 04/05/19 04/06/19 04/06/19 22:59 06:59 14:59 Intake Total 400 Output Total 600 Balance -200 Lab Results Last 24 Hours: Laboratory Results - last 24 hr 04/05/19 04/05/19 04/05/19 Range/Units 10:45 10:45 10:45 WBC 12.31 H (4.23-9.07) K/mm3 RBC 6.76 H (4.63-6.08) M/mm3 Hgb 18.0 H D (13.7-17.5) gm/dl Hct 55.5 H (40.1-51.0) % MCV 82.1 (79.0-92.2) fl MCH 26.6 (25.7-32.2) pg MCHC 32.4 (32.2-35.5) g/dl RDW Std Deviation 50.7 H (35.1-43.9) fL Plt Count 211 (163-337) K/mm3 MPV 8.6 L (9.4-12.3) fl Neut % (Auto) 77.1 H (34.0-67.9) % Lymph % (Auto) 11.3 L (21.8-53.1) % [place] % (Auto) 8.6 (5.3-12.2) % Eos % (Auto) 2.1 (0.8-7.0) Baso % (Auto) 0.4 (0.1-1.2) % Neut # (Auto) 9.49 H (1.78-5.38) K/mm3 Lymph # (Auto) 1.39 (1.32-3.57) K/mm3 [place] # (Auto) 1.06 H (0.30-0.82) K/mm3 Eos # (Auto) 0.26 (0.04-0.54) K/mm3 Baso # (Auto) 0.05 (0.01-0.08) K/mm3 Manual Slide Review Normal smear ESR (0-15) mm/hr PT 42.0 H D (9.7-12.0) SECONDS INR 4.18 Sodium (136-145) mEq/L Potassium (3.5-5.1) mEq/L Chloride (98-107) mEq/L Carbon Dioxide (21-32) mEq/L Anion Gap (5-15) BUN (7-18) mg/dL Creatinine (0.7-1.3) mg/dL Est Cr Clr Drug Dosing mL/min Estimated GFR (MDRD) (>60) mL/min BUN/Creatinine Ratio (14-18) Glucose (83-115) mg/dL POC Glucose (83-110) mg/dL Hemoglobin A1c (4.50-6.20) % Calcium (8.5-10.1) mg/dL Phosphorus (2.6-4.7) mg/dL Magnesium (1.8-2.4) mg/dl C-Reactive Protein 0.5 (<1.0) mg/dL Body Fluid Site Fluid Volume ML Fluid Color Fluid Appearance Fluid WBC (0.20-0.60) k/mm*3 Fluid RBC (0.00-0.010) 10*6/uL Fluid Diff Comment Fluid Seg Neutrophils (0-25) % Fluid Lymphocytes (0-78) % Fluid Monocytes (0-71) % Fl Polymorphonucl Cell 04/05/19 04/05/19 04/05/19 Range/Units 10:45 14:00 18:40 WBC (4.23-9.07) K/mm3 RBC (4.63-6.08) M/mm3 Hgb (13.7-17.5) gm/dl Hct (40.1-51.0) % MCV (79.0-92.2) fl MCH (25.7-32.2) pg MCHC (32.2-35.5) g/dl RDW Std Deviation (35.1-43.9) fL Plt Count (163-337) K/mm3 MPV (9.4-12.3) fl Neut % (Auto) (34.0-67.9) % Lymph % (Auto) (21.8-53.1) % [place] % (Auto) (5.3-12.2) % Eos % (Auto) (0.8-7.0) Baso % (Auto) (0.1-1.2) % Neut # (Auto) (1.78-5.38) K/mm3 Lymph # (Auto) (1.32-3.57) K/mm3 [place] # (Auto) (0.30-0.82) K/mm3 Eos # (Auto) (0.04-0.54) K/mm3 Baso # (Auto) (0.01-0.08) K/mm3 Manual Slide Review ESR 1 (0-15) mm/hr PT (9.7-12.0) SECONDS INR Sodium 129 L (136-145) mEq/L Potassium 6.0 H (3.5-5.1) mEq/L Chloride 98 (98-107) mEq/L Carbon Dioxide 25 (21-32) mEq/L Anion Gap 12.0 (5-15) BUN 70 H (7-18) mg/dL Creatinine 2.3 H (0.7-1.3) mg/dL Est Cr Clr Drug Dosing 25.13 mL/min Estimated GFR (MDRD) 27 (>60) mL/min BUN/Creatinine Ratio 30.4 H (14-18) Glucose 285 H (83-115) mg/dL POC Glucose (83-110) mg/dL Hemoglobin A1c (4.50-6.20) % Calcium 9.2 (8.5-10.1) mg/dL Phosphorus 4.6 (2.6-4.7) mg/dL Magnesium 2.3 (1.8-2.4) mg/dl C-Reactive Protein (<1.0) mg/dL Body Fluid Site Knee Fluid Volume 9 ML Fluid Color Red Fluid Appearance Bloody Fluid WBC 5.67 H (0.20-0.60) k/mm*3 Fluid RBC 5.484 H (0.00-0.010) 10*6/uL Fluid Diff Comment Not Reportable Fluid Seg Neutrophils 83.0 H (0-25) % Fluid Lymphocytes 15.0 (0-78) % Fluid Monocytes 2.0 (0-71) % Fl Polymorphonucl Cell Not Reportable 04/05/19 04/05/19 04/05/19 Range/Units 18:40 18:56 20:56 WBC (4.23-9.07) K/mm3 RBC (4.63-6.08) M/mm3 Hgb (13.7-17.5) gm/dl Hct (40.1-51.0) % MCV (79.0-92.2) fl MCH (25.7-32.2) pg MCHC (32.2-35.5) g/dl RDW Std Deviation (35.1-43.9) fL Plt Count (163-337) K/mm3 MPV (9.4-12.3) fl Neut % (Auto) (34.0-67.9) % Lymph % (Auto) (21.8-53.1) % [place] % (Auto) (5.3-12.2) % Eos % (Auto) (0.8-7.0) Baso % (Auto) (0.1-1.2) % Neut # (Auto) (1.78-5.38) K/mm3 Lymph # (Auto) (1.32-3.57) K/mm3 [place] # (Auto) (0.30-0.82) K/mm3 Eos # (Auto) (0.04-0.54) K/mm3 Baso # (Auto) (0.01-0.08) K/mm3 Manual Slide Review ESR (0-15) mm/hr PT (9.7-12.0) SECONDS INR Sodium (136-145) mEq/L Potassium (3.5-5.1) mEq/L Chloride (98-107) mEq/L Carbon Dioxide (21-32) mEq/L Anion Gap (5-15) BUN (7-18) mg/dL Creatinine (0.7-1.3) mg/dL Est Cr Clr Drug Dosing mL/min Estimated GFR (MDRD) (>60) mL/min BUN/Creatinine Ratio (14-18) Glucose (83-115) mg/dL POC Glucose 242 H 190 H (83-110) mg/dL Hemoglobin A1c 6.80 H (4.50-6.20) % Calcium (8.5-10.1) mg/dL Phosphorus (2.6-4.7) mg/dL Magnesium (1.8-2.4) mg/dl C-Reactive Protein (<1.0) mg/dL Body Fluid Site Fluid Volume ML Fluid Color Fluid Appearance Fluid WBC (0.20-0.60) k/mm*3 Fluid RBC (0.00-0.010) 10*6/uL Fluid Diff Comment Fluid Seg Neutrophils (0-25) % Fluid Lymphocytes (0-78) % Fluid Monocytes (0-71) % Fl Polymorphonucl Cell 04/06/19 04/06/19 04/06/19 Range/Units 04:45 04:55 06:00 WBC (4.23-9.07) K/mm3 RBC (4.63-6.08) M/mm3 Hgb (13.7-17.5) gm/dl Hct (40.1-51.0) % MCV (79.0-92.2) fl MCH (25.7-32.2) pg MCHC (32.2-35.5) g/dl RDW Std Deviation (35.1-43.9) fL Plt Count (163-337) K/mm3 MPV (9.4-12.3) fl Neut % (Auto) (34.0-67.9) % Lymph % (Auto) (21.8-53.1) % [place] % (Auto) (5.3-12.2) % Eos % (Auto) (0.8-7.0) Baso % (Auto) (0.1-1.2) % Neut # (Auto) (1.78-5.38) K/mm3 Lymph # (Auto) (1.32-3.57) K/mm3 [place] # (Auto) (0.30-0.82) K/mm3 Eos # (Auto) (0.04-0.54) K/mm3 Baso # (Auto) (0.01-0.08) K/mm3 Manual Slide Review ESR (0-15) mm/hr PT 34.0 H (9.7-12.0) SECONDS INR 3.34 Sodium 131 L (136-145) mEq/L Potassium 5.6 H (3.5-5.1) mEq/L Chloride 98 (98-107) mEq/L Carbon Dioxide 25 (21-32) mEq/L Anion Gap 13.6 (5-15) BUN 68 H (7-18) mg/dL Creatinine 2.3 H (0.7-1.3) mg/dL Est Cr Clr Drug Dosing 25.13 mL/min Estimated GFR (MDRD) 27 (>60) mL/min BUN/Creatinine Ratio 29.6 H (14-18) Glucose 155 H (83-115) mg/dL POC Glucose 169 H (83-110) mg/dL Hemoglobin A1c (4.50-6.20) % Calcium 9.3 (8.5-10.1) mg/dL Phosphorus (2.6-4.7) mg/dL Magnesium (1.8-2.4) mg/dl C-Reactive Protein (<1.0) mg/dL Body Fluid Site Fluid Volume ML Fluid Color Fluid Appearance Fluid WBC (0.20-0.60) k/mm*3 Fluid RBC (0.00-0.010) 10*6/uL Fluid Diff Comment Fluid Seg Neutrophils (0-25) % Fluid Lymphocytes (0-78) % Fluid Monocytes (0-71) % Fl Polymorphonucl Cell [place] Results Last 24 Hours: Microbiology 04/05/19 14:00 Gram Stain - Final Knee Fluid - Knee, Right Body Fluid Culture - Preliminary NO GROWTH AFTER 1 DAY Med Orders - Current: Current Medications Ketorolac Tromethamine (Toradol) 15 mg IVPUSH Q6H PRN PRN Reason: Pain Last Admin: 04/06/19 05:03 Dose: 15 mg Morphine Sulfate (Morphine) 1 mg IVPUSH Q2H PRN PRN Reason: Pain (severe 7-10) Stop: 04/06/19 16:19 Non-Formulary Medication (Diltiazem [Cardizem Cd]) 240 mg PO DAILY LUCILA Non-Formulary Medication (Doxazosin [Cardura]) 4 mg PO BEDTIME LUCILA Non-Formulary Medication (Furosemide [Furosemide]) 40 mg PO BID LUCILA Non-Formulary Medication (Insulin Glarg,Human.Rec.Analog [Lantus]) 50 units SQ DAILY LUCILA Non-Formulary Medication (Levothyroxine [Synthroid]) 50 mcg PO DAILY LUCILA Non-Formulary Medication (Metoprolol Succinate) 100 mg PO DAILY LUCILA Non-Formulary Medication (Spironolactone [Aldactone]) 25 mg PO DAILY LUCILA Non-Formulary Medication (Tiotropium) 1 puff INH DAILY LUCILA Ondansetron HCl (Zofran) 4 mg IV Q6H PRN PRN Reason: Nausea/Vomiting Ondansetron HCl (Zofran Odt) 4 mg PO Q6H PRN PRN Reason: nausea, able to take PO Warfarin Sodium (Pharmacy To Dose - Warfarin) 1 dose .XX ASDIRECTED PRN PRN Reason: RX TO DOSE WARFARIN Discontinued Medications Acetaminophen (Tylenol) 975 mg PO NOW ONE Stop: 04/05/19 10:20 Last Admin: 04/05/19 10:42 Dose: 975 mg Hydrocodone Bitart/Acetaminophen ([place] 325-5 Mg) 1 tab PO ONETIME ONE Stop: 04/05/19 12:12 Last Admin: 04/05/19 12:19 Dose: 1 tab Ketorolac Tromethamine (Toradol) 30 mg IV Q6H PRN PRN Reason: Pain (moderate 4-6) Lidocaine HCl (Xylocaine 1%) 20 ml INJECT ONETIME ONE Stop: 04/05/19 13:47 Last Admin: 04/05/19 16:16 Dose: Not Given Lidocaine HCl (Xylocaine 1%) Confirm Administered Dose 10 ml .ROUTE .STK-MED ONE Stop: 04/05/19 13:49 Last Admin: 04/05/19 14:15 Dose: 10 ml - Exam Quality Assessment: DVT Prophylaxis General: Alert, Oriented, Cooperative, No Acute Distress HEENT: Pupils Equal, Pupils Reactive, EOMI, Mucous Membr. Moist/[place] Neck: Supple, Trachea Midline Lungs: Clear to Auscultation, Normal Respiratory Effort Cardiovascular: Regular Rate, Regular Rhythm GI/Abdominal Exam: Normal Bowel Sounds, Soft, Non-Tender, No Distention, No Abnormal Bruit (Male) Exam: Deferred Back Exam: Normal Inspection, Full Range of Motion Extremities: Normal Inspection, Normal Range of Motion, Non-Tender, No Pedal Edema, Normal Capillary Refill, Other (Well healed surgical scare on right knee. ) Peripheral Pulses: 1+: Dorsalis Pedis (L), Dorsalis Pedis (R), 2+: Radial (L), Radial (R) Skin: Warm, Dry, Intact Neurological: No New Focal Deficit Psy/Mental Status: Alert, Normal Affect, Normal Mood - Problem List & Annotations (1) Supratherapeutic INR SNOMED Code(s): 015485142 Code(s): R79.1 - ABNORMAL COAGULATION PROFILE Status: Acute Priority: High Current Visit: Yes (2) Hemarthrosis SNOMED Code(s): 95219558 Code(s): M25.00 - HEMARTHROSIS, UNSPECIFIED JOINT Status: Acute Priority : High Current Visit: Yes (3) Knee pain, right SNOMED Code(s): 16313022 Code(s): M25.561 - PAIN IN RIGHT KNEE Status: Resolved Current Visit: Yes Qualifiers: Chronicity: acute Qualified Code(s): M25.561 - Pain in right knee (4) A-fib SNOMED Code(s): 80292584 Code(s): I48.91 - UNSPECIFIED ATRIAL FIBRILLATION Status: Chronic Priority: Medium Current Visit: No Qualifiers: Atrial fibrillation type: unspecified Qualified Code(s): I48.91 - Unspecified atrial fibrillation (5) CAD (coronary artery disease) SNOMED Code(s): 30162351 Code(s): I25.10 - ATHSCL HEART DISEASE OF [place] CORONARY ARTERY W/O ANG PCTRS Status: Chronic Priority: Medium Current Visit: No Qualifiers: Coronary Disease-Associated Artery/Lesion type: unspecified vessel or lesion type [place] vs. transplanted heart: [place] heart Associated angina: angina presence unspecified Qualified Code(s): I25.10 - Atherosclerotic heart disease of [place] coronary artery without angina pectoris (6) CHF (congestive heart failure) SNOMED Code(s): 57768710 Code(s): I50.9 - HEART FAILURE, UNSPECIFIED Status: Chronic Priority: Medium Current Visit: No Qualifiers: Heart failure type: unspecified Heart failure chronicity: unspecified Qualified Code(s): I50.9 - Heart failure, unspecified (7) CKD (chronic kidney disease) SNOMED Code(s): 053612312 Code(s): N18.9 - CHRONIC KIDNEY DISEASE, UNSPECIFIED Status: Chronic Priority: Medium Current Visit: No Qualifiers: Chronic kidney disease stage: stage 3 (moderate) Qualified Code(s): N18.3 - Chronic kidney disease, stage 3 (moderate) (8) COPD (chronic obstructive pulmonary disease) SNOMED Code(s): 93582068 Code(s): J44.9 - CHRONIC OBSTRUCTIVE PULMONARY DISEASE, UNSPECIFIED Status : Chronic Priority: Medium Current Visit: No Qualifiers: COPD type: unspecified COPD Qualified Code(s): J44.9 - Chronic obstructive pulmonary disease, unspecified (9) Chronic lower back pain SNOMED Code(s): 447305713 Code(s): M54.5 - LOW BACK PAIN; G89.29 - OTHER CHRONIC PAIN Status: Chronic Priority: Low Current Visit: No Qualifiers: Back pain laterality: unspecified Sciatica presence: unspecified whether sciatica present Qualified Code(s): M54.5 - Low back pain; G89.29 - Other chronic pain (10) HLD (hyperlipidemia) SNOMED Code(s): 99308502 Code(s): E78.5 - HYPERLIPIDEMIA, UNSPECIFIED Status: Chronic Priority: Low Current Visit: No Qualifiers: Hyperlipidemia type: unspecified Qualified Code(s): E78.5 - Hyperlipidemia , unspecified (11) History of AAA (abdominal aortic aneurysm) repair SNOMED Code(s): 875851176 Code(s): Z98.890 - OTHER SPECIFIED POSTPROCEDURAL STATES Status: Chronic Priority: Medium Current Visit: No (12) History of four vessel coronary artery bypass graft SNOMED Code(s): 374731427, 091399795 Code(s): Z95.1 - PRESENCE OF AORTOCORONARY BYPASS GRAFT Status: Chronic Priority: Medium Current Visit: No (13) Hypothyroidism SNOMED Code(s): 35300506 Code(s): E03.9 - HYPOTHYROIDISM, UNSPECIFIED Status: Chronic Priority: Medium Current Visit: No Qualifiers: Hypothyroidism type: unspecified Qualified Code(s): E03.9 - Hypothyroidism , unspecified (14) S/P total knee arthroplasty SNOMED Code(s): 7054753770011, 914789878, 6539062163325 Code(s): Z96.659 - PRESENCE OF UNSPECIFIED ARTIFICIAL KNEE JOINT Status: Chronic Priority: High Current Visit: No Qualifiers: Laterality: right Qualified Code(s): Z96.651 - Presence of right artificial knee joint - Problem List Review Problem List Initiated/Reviewed/Updated: Yes - My Orders Last 24 Hours: My Active Orders 04/06/19 06:45 Pharmacy to Dose - Warfarin 1 dose .XX ASDIRECTED PRN 04/06/19 09:00 Diltiazem [Cardizem CD] 240 mg PO DAILY Furosemide [Furosemide] 40 mg PO BID Insulin Glarg,Human.Rec.Analog [Lantus] 50 units SQ DAILY Levothyroxine [Synthroid] 50 mcg PO DAILY Metoprolol Succinate 100 mg PO DAILY Spironolactone [Aldactone] 25 mg PO DAILY Tiotropium 1 puff INH DAILY 04/06/19 21:00 Doxazosin [Cardura] 4 mg PO BEDTIME - Plan Plan:: Acute onset right knee pain s/p arthrocentesis in ED Right 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 -Contact PCP to find current dosing and if any changes were recently made
[2019-04-06] MEDS ORDERED: Levothyroxine 50 MCG Tab PO SCH (09:00)
[2019-04-06] MEDS ORDERED: Insulin Glarg,Human.Rec.Analog 100 UNIT/ML ML SUBCUT SCH ×2 (09:00→11:48)
[2019-04-06] MEDS ORDERED: DILTIAZEM 120 MG PO SCH (09:00)
[2019-04-06] MEDS ORDERED: METOPROLOL SUCCINATE 100 MG PO SCH ×2 (09:00→10:48)
[2019-04-06] MEDS ORDERED: SPIRONOLACTONE 25 MG PO SCH (09:00)
[2019-04-06] MEDS: TIOTROPIUM INH SCH (11:39)
[2019-04-06] MEDS: FUROSEMIDE 40 MG PO SCH ×2 (11:39→20:40)
[2019-04-06] MEDS: DILTIAZEM 240 MG PO SCH (11:39)
[2019-04-06] MEDS: LEVOTHYROXINE 50 MCG PO SCH (11:40)
[2019-04-06] MEDS ORDERED: Warfarin 2.5 MG Tab ONE (15:16)
[2019-04-06] MEDS ORDERED: DOXAZOSIN 8 MG PO SCH (21:00)
[2019-04-06] MEDS ORDERED: Doxazosin 4 MG Tab PO SCH (21:00)
[2019-04-07] MEDS: LEVOTHYROXINE 50 MCG PO SCH (06:29)
--- NOTE | 2019-04-07 07:20 | PCM.DCSUM1 ---
Discharge Summary - Hospital Course HPI Initial Comments: Jon Pearson is a 83-year-old male who was admitted to the hospital on after having been seen in the ED with acute onset right knee pain. Pain initially started with ambulation and then became more severe. It became so severe that he was unable to get out a chair. He did have right TKA 7 months ago but reports he did not have any issues during or after surgery and his rehabilitation was unremarkable. He denies any recent trauma. He is on Warfarin for A-fib. In the ED WBC was mildly elevated at 12,000. CRP was 0.5. INR was high at 4.0. Denies any infectious symptoms. He was given Tylenol and [place] for pain but still reported issues with standing and walking. Sterile tap was performed in his right kne with 59 mL of blood obtained. Gram stain was negative. WBC was 5600. X-ray was obtained and was negative. He carries a history of atrial fibrillation, coronary artery disease, heart failure, HLD, stent placement, COPD, cholestasis, chronic constipation, CKD stage III, type II DM, hypoparathyroidism, AAA repair. He is also very hard of hearing. He subsequently admitted to the medical floor observation status for further monitoring of his hemarthrosis and supratherapeutic INR. He is a DNR/DNI. His PCP is Dr. Gallagher in [place]. His with [place] surgeon is Dr. Eldridge. Diagnosis: Stroke: No - Discharge Data Discharge Date: 04/07/19 (Admit date: 04/05/19) Discharge Disposition: Home, Self-Care 01 Condition: Good - Referral to Home Health Primary Care Physician: PCP Not In Area - Discharge Diagnosis/Problem(s) (1) Supratherapeutic INR SNOMED Code(s): 270217389 ICD Code: R79.1 - ABNORMAL COAGULATION PROFILE Status: Acute Priority: High Current Visit: Yes (2) Hemarthrosis SNOMED Code(s): 48385379 ICD Code: M25.00 - HEMARTHROSIS, UNSPECIFIED JOINT Status: Resolved Priority: High Current Visit: Yes (3) Knee pain, right SNOMED Code(s): 03684244 ICD Code: M25.561 - PAIN IN RIGHT KNEE Status: Resolved Current Visit: Yes Qualifiers: Chronicity: acute Qualified Code(s): M25.561 - Pain in right knee (4) A-fib SNOMED Code(s): 82766587 ICD Code: I48.91 - UNSPECIFIED ATRIAL FIBRILLATION Status: Chronic Priority: Medium Current Visit: No Qualifiers: Atrial fibrillation type: unspecified Qualified Code(s): I48.91 - Unspecified atrial fibrillation (5) CAD (coronary artery disease) SNOMED Code(s): 95464799 ICD Code: I25.10 - ATHSCL HEART DISEASE OF [place] CORONARY ARTERY W/O ANG PCTRS Status: Chronic Priority: Medium Current Visit: No Qualifiers: Coronary Disease-Associated Artery/Lesion type: unspecified vessel or lesion type [place] vs. transplanted heart: elem heart Associated angina: angina presence unspecified Qualified Code(s): I25.10 - Atherosclerotic heart disease of [place] coronary artery without angina pectoris (6) CHF (congestive heart failure) SNOMED Code(s): 10313323 ICD Code: I50.9 - HEART FAILURE, UNSPECIFIED Status: Chronic Priority: Medium Current Visit: No Qualifiers: Heart failure type: unspecified Heart failure chronicity: unspecified Qualified Code(s): I50.9 - Heart failure, unspecified (7) CKD (chronic kidney disease) SNOMED Code(s): 899388973 ICD Code: N18.9 - CHRONIC KIDNEY DISEASE, UNSPECIFIED Status: Chronic Priority: Medium Current Visit: No Qualifiers: Chronic kidney disease stage: stage 3 (moderate) Qualified Code(s): N18.3 - Chronic kidney disease, stage 3 (moderate) (8) COPD (chronic obstructive pulmonary disease) SNOMED Code(s): 19297799 ICD Code: J44.9 - CHRONIC OBSTRUCTIVE PULMONARY DISEASE, UNSPECIFIED Status : Chronic Priority: Medium Current Visit: No Qualifiers: COPD type: unspecified COPD Qualified Code(s): J44.9 - Chronic obstructive pulmonary disease, unspecified (9) Chronic lower back pain SNOMED Code(s): 411584501 ICD Code: M54.5 - LOW BACK PAIN; G89.29 - OTHER CHRONIC PAIN Status: Chronic Priority: Low Current Visit: No Qualifiers: Back pain laterality: unspecified Sciatica presence: unspecified whether sciatica present Qualified Code(s): M54.5 - Low back pain; G89.29 - Other chronic pain (10) HLD (hyperlipidemia) SNOMED Code(s): 27761107 ICD Code: E78.5 - HYPERLIPIDEMIA, UNSPECIFIED Status: Chronic Priority: Low Current Visit: No Qualifiers: Hyperlipidemia type: unspecified Qualified Code(s): E78.5 - Hyperlipidemia , unspecified (11) History of AAA (abdominal aortic aneurysm) repair SNOMED Code(s): 226118048 ICD Code: Z98.890 - OTHER SPECIFIED POSTPROCEDURAL STATES Status: Chronic Priority: Medium Current Visit: No (12) History of four vessel coronary artery bypass graft SNOMED Code(s): 649708983, 922622526 ICD Code: Z95.1 - PRESENCE OF AORTOCORONARY BYPASS GRAFT Status: Chronic Priority: Medium Current Visit: No (13) Hypothyroidism SNOMED Code(s): 93446089 ICD Code: E03.9 - HYPOTHYROIDISM, UNSPECIFIED Status: Chronic Priority: Medium Current Visit: No Qualifiers: Hypothyroidism type: unspecified Qualified Code(s): E03.9 - Hypothyroidism , unspecified (14) S/P total knee arthroplasty SNOMED Code(s): 2873556260941, 405092245, 1070841611521 ICD Code: Z96.659 - PRESENCE OF UNSPECIFIED ARTIFICIAL KNEE JOINT Status: Chronic Priority: High Current Visit: No Qualifiers: Laterality: right Qualified Code(s): Z96.651 - Presence of right artificial knee joint (15) Hyperkalemia SNOMED Code(s): 39714263 ICD Code: E87.5 - HYPERKALEMIA Status: Acute Current Visit: Yes - Patient Summary/Data Consults: Consultations 04/05/19 16:17 OT Evaluation and Treatment [CONS] Routine PT Evaluation and Treatment [CONS] Routine Labs Pending at D/C: None Recommended Follow-up Testing/Procedures: Follow-up with PCP as scheduled Follow-up with Dr. Eldridge in [place] as scheduled. Hospital Course: Once admitted to the floor Mr. Roberson reported that his knee felt better. He reports that it was back to normal. His Coumadin was initially held and discussion ensued about why the patient may have had a high INR. He reported that a provider in [place] had recently adjust his dosing and he was supposed to take half dose on Wednesday and Wednesday. CP was contacted who was unaware of any dose changes but stated that that seemed to be reasonable. PCP reports patient is usually very compliant with medications and does a pretty good job managing himself. 2.5 mg dose warfarin was given on 04/06/19 and his INR prior to discharge was 3.0. His knee remained nontender with good motion. Tatum Masterson PA-C with Dr. Smiley's office was contacted for recommendations regarding joint. She agrees that blood was likely due to supratherapeutic INR of course since the patient did have a knee tap performed this will need to be monitored. She reports that Dr. Sherice encarnacion will be in [place], which is very close to where the patient lives, in the beginning of April and will be able to see the patient then. Jon was noted to be mildly hyponatremic with a sodium of 131 and his potassium did fluctuate from 0.0 on admission to 5.6 and then back up to 5.8. Discussed this with Dr. Rodriguez, hospitalist on-call, who would like us to hold the patient's spironolactone until he follows up with his primary care provider. She requests double dose of morning Lasix today () and tomorrow (04/08/19.) She requests INR, BMP, phosphorus, and magnesium be drawn on 04/10/19. She would also like the patient to follow up with his primary care provider on Wednesday, or at the next closest available appointment. Patient's PCP is aware of need for lab draw and will be looking for these labs. PT and OT did see the patient reports that he is safe for return to home. Home medications were otherwise continued with the exception of double dose of Lasix and holding of spironolactone as mentioned above. We will adjust the patient's warfarin dose to 5 mg on Wednesday, Wednesday, Wednesday, Wednesday, Wednesday. He will take 2.5 mg on Wednesday and . He was instructed to return to the emergency room or contact his primary care provider should symptoms return or worsen. - Patient Instructions Diet: Heart Healthy Diet Activity: As Tolerated Driving: Do Not Drive Showering/Bathing: May Shower Notify Provider of: Fever, Increased Pain, Swelling and Redness, Nausea and/or Vomiting Other/Special Instructions: Follow-up with PCP within 1 week of discharge. Re- check INR, BMP, Magnesium, Phosphorus on 04/10/[address] Gallagher. Follow-up with Dr. Eldridge as scheduled. Your warfarin dosing was changed. Take 2.5mg on Wednesday and . Take 5mg on Wednesday, Wednesday, Wednesday, Wednesday, and Wednesday. Should you notice any fever, knee pain, swelling, or other symptoms that your knee may be infected, seek medical help immediately. Resume all home medications as prescribed. Hold your spirinolactone as described below. Double your morning lasix dose on 04/08/19 as directed below. Your potassium was high while here. Hold your spirinolactone until seen by Dr. Holm. Double your dose of lasix tomorrow AM (04/08/19) this would be 80mg tomorrow AM and not your usual dose of 40mg. Should symtpoms return or worsen, contact your primary care provider or return to the Emergency Room. - Discharge Plan *PRESCRIPTION DRUG MONITORING PROGRAM REVIEWED*: No *COPY OF PRESCRIPTION DRUG MONITORING REPORT IN PATIENT GABE: No Prescriptions/Med Rec: Warfarin [Coumadin] 2.5 mg PO ASDIRECTED #1 tab Warfarin [Coumadin] 5 mg PO ASDIRECTED #1 tab Home Medications: Home Meds Doxazosin [Cardura] 4 mg PO BEDTIME 08/26/18 [History] Furosemide 40 mg PO BID 08/26/18 [History] Insulin Glarg,Human.Rec.Analog [Lantus] 50 units SQ DAILY 08/26/18 [History] Levothyroxine [Synthroid] 50 mcg PO DAILY 08/26/18 [History] Metoprolol Succinate [Toprol Xl] 100 mg PO DAILY 08/26/18 [History] Tiotropium [Spiriva HandiHaler] 1 puff INH DAILY 08/26/18 [History] Diltiazem [Cardizem CD] 240 mg PO DAILY 04/05/19 [History] Spironolactone [Aldactone] 25 mg PO DAILY #0 04/07/19 [Rx] Warfarin [Coumadin] 2.5 mg PO ASDIRECTED #1 tab 04/07/19 [Rx] Warfarin [Coumadin] 5 mg PO ASDIRECTED #1 tab 04/07/19 [Rx] Oxygen Therapy Mode: Room Air Patient Handouts: Heart Failure Action Plan Forms: ED Department Discharge Referrals: Jaxson Eldridge MD [Physician] - 04/26/19 10:45 am (Appointment is in [place]. Please check in at 10:30 am.) Harsha Gallagher MD [Ordering Only Provider] - 04/13/19 2:30 pm (please attend the scheduled follow up appointment with Dr. Gallagher. ) - Discharge Summary/Plan Comment DC Time >30 min.: Yes (45 mins ) - General Info Date of Service: 04/07/19 Functional Status: Reports: Pain Controlled, Tolerating Diet, Ambulating, Urinating. Denies: New Symptoms - Review of Systems General: Reports: No Symptoms. Denies: Fever, Weakness, Fatigue, Malaise, Chills HEENT: Reports: No Symptoms. Denies: Headaches, Sore Throat, Visual Changes Pulmonary: Reports: No Symptoms. Denies: Shortness of Breath, Cough, Sputum, Wheezing Cardiovascular: Reports: No Symptoms. Denies: Chest Pain, Palpitations, Edema Gastrointestinal: Reports: No Symptoms. Denies: Abdominal Pain, Constipation, Diarrhea, Nausea, Vomiting Genitourinary: Reports: No Symptoms. Denies: Pain Musculoskeletal: Reports: No Symptoms Skin: Reports: No Symptoms. Denies: Cyanosis Neurological: Reports: No Symptoms. Denies: Confusion, Numbness, Pre-Existing Deficit, Trouble Speaking, Difficulty Walking, Gait Disturbance Psychiatric: Reports: No Symptoms - Patient Data Vitals - Most Recent: Last Vital Signs Temp 98.1 F 04/07/19 04:00 Pulse 65 04/07/19 04:00 Resp 20 04/07/19 04:00 BP 96/66 04/07/19 04:00 Pulse Ox 94 L 04/07/19 04:00 Weight - Most Recent: 220 lb 4.8 oz I&O - Last 24 hours: Intake & Output 04/06/19 04/07/19 04/07/19 22:59 06:59 14:59 Intake Total 810 150 Output Total 725 1000 Balance 85 -850 Lab Results - Last 24 hrs: Laboratory Results - last 24 hr 04/06/19 04/06/19 04/06/19 Range/Units 12:10 17:27 20:42 PT (9.7-12.0) SECONDS INR Sodium (136-145) mEq/L Potassium (3.5-5.1) mEq/L Chloride (98-107) mEq/L Carbon Dioxide (21-32) mEq/L Anion Gap (5-15) BUN (7-18) mg/dL Creatinine (0.7-1.3) mg/dL Est Cr Clr Drug Dosing mL/min Estimated GFR (MDRD) (>60) mL/min BUN/Creatinine Ratio (14-18) Glucose (83-115) mg/dL POC Glucose 176 H 170 H 170 H (83-110) mg/dL Calcium (8.5-10.1) mg/dL Magnesium (1.8-2.4) mg/dl 04/07/19 04/07/19 Range/Units 04:45 04:45 PT 30.7 H (9.7-12.0) SECONDS INR 3.00 Sodium 131 L (136-145) mEq/L Potassium 5.8 H (3.5-5.1) mEq/L Chloride 98 (98-107) mEq/L Carbon Dioxide 28 (21-32) mEq/L Anion Gap 10.8 (5-15) BUN 71 H (7-18) mg/dL Creatinine 2.3 H (0.7-1.3) mg/dL Est Cr Clr Drug Dosing 25.13 mL/min Estimated GFR (MDRD) 27 (>60) mL/min BUN/Creatinine Ratio 30.9 H (14-18) Glucose 157 H (83-115) mg/dL POC Glucose (83-110) mg/dL Calcium 9.0 (8.5-10.1) mg/dL Magnesium 2.3 (1.8-2.4) mg/dl ASHTYN Results - Last 24 hrs: Microbiology 04/05/19 14:00 Gram Stain - Final Knee Fluid - Knee, Right Body Fluid Culture - Preliminary NO GROWTH AFTER 1 DAY Med Orders - Current: Current Medications Diltiazem HCl (Dilacor Xr) 240 mg PO DAILY [facility] Last Admin: 04/06/19 11:39 Dose: 240 mg Furosemide (Lasix) 40 mg PO BID [facility] Last Admin: 04/06/19 20:40 Dose: 40 mg Insulin Glargine (Lantus) 50 unit SUBCUT DAILY [facility] Ketorolac Tromethamine (Toradol) 15 mg IVPUSH Q6H PRN PRN Reason: Pain Last Admin: 04/06/19 05:03 Dose: 15 mg Levothyroxine Sodium (Synthroid) 50 mcg PO ACBREAKFAST [facility] Last Admin: 04/07/19 06:29 Dose: 50 mcg Tiotropium 1 Puff - (Pts Own Medication) 0 puff INH DAILY [facility] Last Admin: 04/06/19 11:39 Dose: Not Given Ondansetron HCl (Zofran) 4 mg IV Q6H PRN PRN Reason: Nausea/Vomiting Ondansetron HCl (Zofran Odt) 4 mg PO Q6H PRN PRN Reason: nausea, able to take PO Doxazosin 8 Mg (Patient's Own ) 0 each PO BEDTIME [facility] Last Admin: 04/06/19 20:40 Dose: 1 each Metoprolol Succinate 100 Mg Patient' s Own Med 0 each PO DAILY [facility] Spironolactone (Aldactone) 25 mg PO DAILY [facility] Last Admin: 04/06/19 11:38 Dose: 25 mg Discontinued Medications Acetaminophen (Tylenol) 975 mg PO NOW ONE Stop: 04/05/19 10:20 Last Admin: 04/05/19 10:42 Dose: 975 mg Hydrocodone Bitart/Acetaminophen ([place] 325-5 Mg) 1 tab PO ONETIME ONE Stop: 04/05/19 12:12 Last Admin: 04/05/19 12:19 Dose: 1 tab Diltiazem HCl (Cardizem Cd) 240 mg PO DAILY [facility] [place] Last Admin: 04/06/19 12:15 Dose: Not Given Doxazosin Mesylate (Cardura) 4 mg PO BEDTIME [facility] Insulin Glargine (Lantus) 50 unit SUBCUT DAILY [facility] [place] Last Admin: 04/06/19 12:06 Dose: 50 unit Ketorolac Tromethamine (Toradol) 30 mg IV Q6H PRN PRN Reason: Pain (moderate 4-6) Levothyroxine Sodium (Synthroid) 50 mcg PO DAILY [facility] [place] Last Admin: 04/06/19 12:16 Dose: Not Given Lidocaine HCl (Xylocaine 1%) 20 ml INJECT ONETIME ONE Stop: 04/05/19 13:47 Last Admin: 04/05/19 16:16 Dose: Not Given Lidocaine HCl (Xylocaine 1%) Confirm Administered Dose 10 ml .ROUTE .STK-MED ONE Stop: 04/05/19 13:49 Last Admin: 04/05/19 14:15 Dose: 10 ml Morphine Sulfate (Morphine) 1 mg IVPUSH Q2H PRN PRN Reason: Pain (severe 7-10) Stop: 04/06/19 16:19 Metoprolol Succinate 100 Mg Pts Own Med 0 mg PO DAILY [facility] [place] Last Admin: 04/06/19 12:15 Dose: Not Given Warfarin Sodium (Pharmacy To Dose - Warfarin) 1 dose .XX ASDIRECTED PRN PRN Reason: RX TO DOSE WARFARIN Warfarin Sodium (Coumadin) 2.5 mg PO QPM [facility] Stop: 04/06/19 18:01 Last Admin: 04/06/19 17:35 Dose: Not Given Warfarin Sodium (Coumadin) Confirm Administered Dose 2.5 mg .ROUTE .STK-MED ONE Stop: 04/06/19 15:17 Last Admin: 04/06/19 16:08 Dose: 2.5 mg - Exam Quality Assessment: Reports: DVT Prophylaxis General: Reports: Alert, Oriented, Cooperative, No Acute Distress HEENT: Reports: Pupils Equal, Pupils Reactive, EOMI, Mucous Membr. Moist/[place] Neck: Reports: Supple, Trachea Midline Lungs: Reports: Clear to Auscultation, Normal Respiratory Effort Cardiovascular: Reports: Regular Rate, Irregular Rhythm GI/Abdominal Exam: Normal Bowel Sounds, Soft, Non-Tender, No Distention, No Abnormal Bruit (Male) Exam: Deferred Rectal (Males) Exam: Deferred Back Exam: Reports: Normal Inspection, Full Range of Motion Extremities: Normal Inspection, Normal Range of Motion, Non-Tender, No Pedal Edema, Normal Capillary Refill Skin: Reports: Warm, Dry, Intact Neurological: Reports: No New Focal Deficit Psy/Mental Status: Reports: Alert, Normal Affect, Normal Mood *Q Meaningful Use (DIS) - VTE *Q VTE Mechanical Contraindications *Q: Tx/Proc Refused byPt
[2019-04-07] MEDS ORDERED: Furosemide 40 MG Tab *** PATIENT'S OWN PO ONE (09:00)
[2019-04-07] MEDS: DILTIAZEM 240 MG PO SCH (09:05)
[2019-04-07] MEDS: FUROSEMIDE 40 MG PO SCH (09:07)
[2019-04-07] MEDS: TIOTROPIUM INH SCH (10:14)
== END 2019-04-07 11:35 | disposition home or self-care (01) ==
LOC: JD.ED 09:26 → JD.MS 16:20
PROVIDERS: ADMIT Internal Medicine; ATTEND Internal Medicine
DX: M25.061 Hemarthrosis, right knee (principal); R79.1 Abnormal coagulation profile; I25.10 Atherosclerotic heart disease of native coronary artery without angina pectoris; I13.0 Hypertensive heart and chronic kidney disease with heart failure and stage 1 through stage 4 chronic kidney disease, or unspecified chronic kidney disease; E11.22 Type 2 diabetes mellitus with diabetic chronic kidney disease; I50.9 Heart failure, unspecified; N18.3 Chronic kidney disease, stage 3 (moderate); I48.91 Unspecified atrial fibrillation; E03.9 Hypothyroidism, unspecified; E78.00 Pure hypercholesterolemia, unspecified; E20.9 Hypoparathyroidism, unspecified; J44.9 Chronic obstructive pulmonary disease, unspecified; G89.29 Other chronic pain; M54.5 Low back pain; Z79.01 Long term (current) use of anticoagulants; Z96.651 Presence of right artificial knee joint; Z88.8 Allergy status to other drugs, medicaments and biological substances; Z79.4 Long term (current) use of insulin; Z79.899 Other long term (current) drug therapy; Z95.5 Presence of coronary angioplasty implant and graft; Z98.890 Other specified postprocedural states; Z95.1 Presence of aortocoronary bypass graft
CPT/HCPCS: 20610; 36415; 73562; 80048; 82962; 83036; 83735; 84100; 85025; 85610; 85652; 86140; 87070; 87205; 89050; 96374; 96376; 97116; 97161; 97165; 99284; A9270; G0378; J1815; J1885; J2001